=== PATIENT | female | born 1930 | race Caucasian/White ===

== ENCOUNTER 2018-06-30 09:22 | Inpatient (IN) ==
--- NOTE | 2018-06-30 09:45 | Emergency Department Note ---
ED Disposition Clinical Impression: Upper GI bleed, Elevated liver enzymes, Anemia, blood loss Hypothyroidism Qualifiers: Hypothyroidism type: unspecified Qualified Code(s): E03.9 - Hypothyroidism, unspecified Disposition: Still a Patient Condition on Discharge: Fair - Critical Care Critical Care Time: No Attestation: On 06/30/18, the high probability of a clinically significant, sudden or life threatening deterioration of the following system(s) required my full and direct attention, intervention and personal management. The time I documented below is in addition to time spent performing reported procedures but includes the following listed in this critical care notation. Medical Decision Making - Raymond Inquiry Pt receiving controlled substance: No Vital Signs: 06/30/18 09:20 06/30/18 10:04 06/30/18 10:30 Temperature 97.7 F Temperature Source Oral Pulse Rate [Right Brachial] 63 82 82 Respiratory Rate 18 18 18 Blood Pressure [Right Arm] 134/49 135/92 157/67 Blood Pressure Mean [Right Arm] 77 106 97 Blood Pressure Source [Right Arm] Automatic Cuff Automatic Cuff Automatic Cuff Blood Pressure Position [Right Arm] Sitting Supine Supine 02 Sat by Pulse Oximetry 99 98 98 Oxygen Delivery Method Nasal Cannula Room Air Nasal Cannula Oxygen Flow Rate (LPM) 2 2 06/30/18 11:00 06/30/18 11:46 06/30/18 12:00 Temperature Temperature Source Pulse Rate [Right Brachial] 68 70 54 L Respiratory Rate 18 18 18 Blood Pressure [Right Arm] 131/59 103/55 134/65 Blood Pressure Mean [Right Arm] 83 71 88 Blood Pressure Source [Right Arm] Automatic Cuff Automatic Cuff Blood Pressure Position [Right Arm] Supine Supine Supine 02 Sat by Pulse Oximetry 96 99 100 Oxygen Delivery Method Nasal Cannula Room Air Nasal Cannula Oxygen Flow Rate (LPM) 2 2 06/30/18 12:30 06/30/18 13:00 Temperature Temperature Source Pulse Rate [Right Brachial] 58 L 68 Respiratory Rate 18 20 Blood Pressure [Right Arm] 129/66 129/68 Blood Pressure Mean [Right Arm] 87 88 Blood Pressure Source [Right Arm] Automatic Cuff Automatic Cuff Blood Pressure Position [Right Arm] Supine Sitting 02 Sat by Pulse Oximetry 100 98 Oxygen Delivery Method Venturi Mask Room Air Oxygen Flow Rate (LPM) 2 - Lab Data Lab Results 06/30/18 10:02: WBC 7.2, RBC 2.83 L, Hgb 8.7 L, Hct 26.4 L, MCV 93.3, MCH 30.6, MCHC 32.8, RDW 14.7, Plt Count 261, MPV 7.7, Neut % (Auto) 82.3 H, Lymph % (Auto ) 10.7, Patrick % (Auto) 6.0, Eos % (Auto) 0.9, Baso % (Auto) 0.1, Neut # (Auto) 5.9, Lymph # (Auto) 0.8, Patrick # (Auto) 0.4, Eos # (Auto) 0.1, Baso # (Auto) 0.0 06/30/18 10:02: Sodium 127 L, Potassium 4.5, Chloride 97 L, Carbon Dioxide 27, Anion Gap 7.5, BUN 60 H, Creatinine 1.01, Estimated Creat Clear 23, Estimated GFR 52 L, Est GFR ( Amer) 63, Glucose 67 L, Calcium 7.5 L, Total Bilirubin 0.4, AST 405 H*, ALT 717 H*, Alkaline Phosphatase 62, Total Creatine Kinase 41, CK-MB (CK-2) 1.6, CK-MB (CK-2) Rel Index 3.9, Troponin I < 0.02, Total Protein 5.0 L, Albumin 2.6 L, Globulin 2.4, Albumin/Globulin Ratio 1.1 06/30/18 10:02: TSH 24.63 H 06/30/18 10:02: Lipase 231 06/30/18 10:20: Stool Occult Blood Positive A 06/30/18 10:35: Urine Color Yellow, Urine Appearance Clear, Urine pH 7.0, Ur Specific [place] <= 1.005, Urine Protein Negative, Urine Glucose (UA) Negative, Urine Ketones Negative, Urine Blood Negative, Urine Nitrate Negative, Urine Bilirubin Negative, Urine Urobilinogen 0.2, Ur Leukocyte Esterase Negative, Urine RBC None, Urine WBC None, Ur Squamous Epith Cells Occasional, Urine Bacteria Trace 06/30/18 11:20: Blood Type A Positive, Antibody Screen Negative Result diagrams: 06/30/18 10:02 06/30/18 10:02 Orders (Tests/Meds): ED MEDICATIONS Generic Name Dose Route Start Last Admin Trade Name Freq PRN Reason Stop Dose Admin Albuterol Sulfate 1 puffs 07/01/18 09:00 Proventil-Hfa 90mcg/Puff Inhaler IH 07/31/18 08:59 QIDP PRN Shortness Of Breath Bisoprolol Fumarate 5 mg 07/01/18 09:00 Zebeta 5mg Tablet PO 07/31/18 08:59 DAILY ANNIE Diltiazem HCl 240 mg 07/01/18 09:00 Cardizem Er 240mg Capsule PO 07/31/18 08:59 DAILY ANNIE Furosemide 40 mg 07/01/18 09:00 Lasix 40mg Tablet PO 07/31/18 08:59 DAILY ANNIE Hyoscyamine 0.125 mg 07/01/18 09:00 Levsin 0.125mg Tablet PO 07/31/18 08:59 DAILY ANNIE Pantoprazole Sodium 80 mg/ 100 mls @ 10 mls/hr 06/30/18 14:15 Sodium Chloride IV 07/03/18 11:55 .Q10H ANNIE Irbesartan 75 mg 07/01/18 09:00 Avapro 75mg Tablet PO 07/31/18 08:59 DAILY ANNIE Isosorbide Mononitrate 30 mg 06/30/18 21:00 Imdur 30mg Er Tablet PO 07/30/18 20:59 BID ANNIE Levothyroxine Sodium 75 mcg 07/01/18 07:00 Synthroid 75mcg (0.075mg) Tablet PO 07/31/18 06:59 DAILYDM [facility] Loratadine 10 mg 07/01/18 09:00 Claritin 10mg Tablet PO 07/31/18 08:59 DAILY ANNIE Magnesium Oxide 400 mg 06/30/18 21:00 Mag-Ox 400mg Tab PO 07/30/18 20:59 HS [facility] Morphine Sulfate 2 mg 06/30/18 14:15 06/30/18 14:29 Morphine 2mg/Ml Syringe IV 07/30/18 14:14 2 mg Q4HP PRN Administration Severe Pain Ondansetron HCl 4 mg 06/30/18 14:15 Zofran 4mg/2ml Vial IV 07/30/18 14:14 Q8HP PRN Nausea Potassium Chloride 10 meq 07/01/18 09:00 Micro-K 10meq Capsule PO 07/31/18 08:59 DAILY ANNIE Spironolactone 25 mg 07/01/18 09:00 Aldactone 25mg Tablet PO 07/31/18 08:59 DAILY ANNIE Discontinued Medications Generic Name Dose Route Start Last Admin Trade Name Freq PRN Reason Stop Dose Admin Pantoprazole Sodium 80 mg/ 100 mls @ 10 mls/hr 06/30/18 11:56 Sodium Chloride IV 07/03/18 11:55 .Q10H ANNIE Pantoprazole Sodium 80 mg/ 100 mls @ 100 mls/hr 06/30/18 10:56 06/30/18 11:20 Sodium Chloride IV 06/30/18 11:55 100 mls/hr ONCE ONE Administration Isosorbide Dinitrate 10 mg 07/01/18 09:00 Isordil 10mg Tablet PO 07/31/18 08:59 DAILY ANNIE Morphine Sulfate 2 mg 06/30/18 13:10 06/30/18 13:21 Morphine 4mg/Ml Syringe IV 06/30/18 13:11 1 mg ONCE ONE Administration Ondansetron HCl 4 mg 06/30/18 13:10 06/30/18 13:22 Zofran 4mg/2ml Vial IV 06/30/18 13:11 4 mg ONCE ONE Administration ORDERS Category Date Time Status Consult to Physician [CONS] Routine Cons 06/30/18 14:15 Ordered Complete Blood Count Auto Diff Timed Lab 06/30/18 14:30 Ordered Hepatitis Panel (4) Stat Lab 06/30/18 10:43 Received - Radiology Data #1 Image(s): Chest Image Reviewed: Yes I have reviewed radiologist's interpretation Faint area in the upper lobe on the right that could be a small area of infiltrate. The patient does not have symptoms of pneumonia, fever, or elevated WBC. Cynically does not have pneumonia. - CT Data CT Scan: Abdomen, Pelvis Time Received: 12:[address] Reviewed: Yes: I discussed the CT results w/the radiologist Findings Narrative: Biliary dilatation - ECG Data Tracing #1 EKG interpreted by Mansoor Manzanares MD: Rhythm: sinus Rate: 61 [place]: Left Ectopy: none Conduction: normal ST Segment Changes: none T Wave Changes: none Q Waves: Nicolas-septal No evidence of acute ischemia or injury Prior electrocardiagrams reviewed. No change from prior tracings. - Physician Consults Physician Consulted: Michael Time: 13:22 Reason -: Admission Comment/Response: Agrees to admit the patient to the hospital. We discussed the patient's clinical information, including history, exam, laboratory and radiology results and ED course. Per hospital procedure, I will write temporary bridge inpatient orders on the patient. Specific orders requested by the admitting physician: Recheck CBC in 1 hour Additional Consult: Pradeep Time: 13:25 Reason -: Surgical Eval/Care Medical Decision Narrative: Barium swallow: FINDINGS: The swallowing function was normal. There is moderate posterior indentation of the barium column in the lower cervical spine region at approximately the C6 level consistent with cricopharyngeal dysfunction. This could be a cause for dysphasia to solid foods. Otherwise the esophageal motility was grossly normal except for a few tertiary contractions in the lower third of the esophagus. There is tapered narrowing of the esophagus at the gastroesophageal junction appearance suggesting stenosis from scarring from chronic reflux esophagitis. I was reluctant to give the 13 mm barium tablet is I feel that it would definitely be lodged in the stenotic segment. There was intermittent gastroesophageal reflux into the mid thoracic esophagus. IMPRESSION: 1. 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 Mild esophageal dyskinesia along with 2 to 3 cm stenotic segment of the distal esophagus at the gastroesophageal junction Dictated By: Trenton Mascorro Signed By: <Electronically signed by Trenton Mascorro in [place]> 06/11/18 1241 Thoracic spine x-ray: IMPRESSION: Very limited exam. There is wedging of L3 which is developed since 11/19/2017 with chronic wedging of L1 which is unchanged. Dictated By: John Marcial MD Signed By: <Electronically signed by John Marcial MD in [place]> 06/23/18 1547 Discussed thyroid test results. Family states the patient's thyroid dose was recently cut down from 125 mcg daily to 88 mcg daily and then down to 88 mcg and 44 mcg alternating every other day. General Adult HPI - General Chief complaint: Weakness Stated complaint: weakness Time Seen by Provider: 06/30/18 10:00 Mode of Arrival: EMS Limitations: Physical Limitations Description of Symptoms (Recalled from ER Triage Doc. by RN): recently diagnosed with compression fracture in her back; presents with weakness upon standing, near syncope episodes - History of Present Illness HPI narrative: Brought in by ambulance. Complains of generalized weakness, dizziness and near syncope upon standing. Abdomen is been bothering her since she sustained compression fracture in her back for couple of weeks. She has nausea. She is having frequent bowel movements. Since Thursday bowel movements have been black and sticky and she is having more than usual. No vomiting. She is on muscle relaxers for her back. She is not on any antiplatelet except for a baby aspirin a day. She had a barium swallow done a couple of weeks ago because of trouble swallowing, at that time she was not having black bowel movements. She is on iron, but has not taken it for couple of days. Last ate a couple of bites of applesauce at 6 AM. - Related Data Home Medications Medication Instructions Recorded Confirmed Albuterol Sulfate [Albuterol HFA 108 mg PO DAILY 06/03/18 Inhaler] Hyoscyamine Sulfate 0.125 mg PO DAILY 06/03/18 Isosorbide Dinitrate [Isordil 10mg 10 mg PO DAILY 06/03/18 tablet] Levothyroxine Sodium 88 mcg PO DAILY 06/03/18 [Levothyroxine 88mcg (0.088mg) Tab] Aspirin [Aspirin 81mg chewable 81 mg PO DAILY 06/30/18 06/30/18 tab] Bifidobacterium Infantis [Align] 4 mg PO WEEKLY 06/30/18 06/30/18 Bisoprolol Fumarate [Zebeta 5mg 5 mg PO DAILY 06/30/18 06/30/18 tablet] Chlorhexidine Gluconate [Peridex] 15 ml MM DAILY 06/30/18 06/30/18 Cholecalciferol (Vitamin D3) 1,000 unit PO DAILY 06/30/18 06/30/18 [Vitamin D3 1,000 Unit Cap] Cyanocobalamin (Vitamin B-12) 1 % PO DAILY 06/30/18 06/30/18 [Vitamin B-12] Ferrous Gluconate [Ferrous 1 tab PO DAILY 06/30/18 06/30/18 Gluconate 324mg Tab] Furosemide [Lasix 40mg tab] 40 mg PO BID 06/30/18 06/30/18 Levalbuterol HCl [Levalbuterol 1.25 mg IH DAILY 06/30/18 06/30/18 Concentrate] Loratadine [Claritin 10mg Tablet] 0 mg .ROUTE DAILY 06/30/18 06/30/18 Losartan Potassium 25 mg PO DAILY 06/30/18 06/30/18 Magnesium Oxide [Mag-Ox 400mg Tab] 0 mg PO DAILY 06/30/18 06/30/18 Metoclopramide HCl [Metoclopramide 10 mg PO DAILY 06/30/18 06/30/18 10mg Tablet] Nitroglycerin 0.4 mg SL NEEDED PRN 06/30/18 06/30/18 Polyethylene Glycol 3350 [Gavilax] 17 gm PO DAILY 06/30/18 06/30/18 Potassium Chloride [Klor-Con 10 meq PO DAILY 06/30/18 06/30/18 Sprinkle 10mEq] Spironolactone 25 mg PO DAILY 06/30/18 06/30/18 Umeclidinium [place] [Incruse 62.5 mcg IH DAILYP PRN 06/30/18 06/30/18 Ellipta] dilTIAZem HCl [Diltiazem 240mg 240 mg PO DAILY 06/30/18 06/30/18 24Hr ER Cap] metroNIDAZOLE [Metronidazole] 45 gm TP DAILY 06/30/18 06/30/18 Allergies Allergy/AdvReac Type Severity Reaction Status Date / Time diatrizoate sodium Allergy Severe S-SWELLS-OR Verified 06/30/18 13:26 [From HYPAQUE] AL/THROAT Influenza Virus Vaccines Allergy Intermediate I-ITCHING Verified 06/30/18 13:26 [INFLUENZA VIRUS VACCINES] levofloxacin [From LEVAQUIN] Allergy Intermediate I-RASH Verified 06/30/18 13:26 codeine [CODEINE] Allergy Mild "HEADACHE" Verified 06/30/18 13:26 Sulfa (Sulfonamide Allergy Mild NA-NAUSEA/V Verified 06/30/18 13:26 Antibiotics) OMITING [SULFA (SULFONAMIDE ANTIBIOTICS)] mometasone furoate Allergy Unknown Verified 06/30/18 13:26 [From NASONEX] [facility] History I have reviewed the patient's past medical history: Yes - Social History Alcohol Intake: never - Psychiatric History Expresses thoughts of harming self/others: None Suicide Plan Description: No Plan ROS Obtained: Yes All systems reviewed & no additional complaints - Constitutional Constitutional: Reports fatigue, Denies fever(s), Reports weakness - Cardiovascular Cardiovascular: Denies chest pain - Respiratory Respiratory: No dyspnea - Gastrointestinal Gastrointestingal: Reports: bloating, black, tarry stools, nausea. Denies: vomiting - Musculoskeletal Musculoskeletal: Reports back pain Physical Exam - General General appearance: alert, in no apparent distress - Head Head exam: atraumatic, normocephalic, normal inspection - Eye Eye exam: Present: normal appearance, PERRL, EOMI - ENT ENT exam: Present: normal oropharynx, mucous membranes moist - Neck Neck exam: Present: normal inspection, full ROM, trachea midline. Absent: meningismus, lymphadenopathy - Chest Chest inspection: Present: normal inspection, symmetric chest wall rise. Absent : tenderness - Respiratory Respiratory exam: Present: normal lung sounds bilaterally. Absent: respiratory distress - Cardiovascular Cardiovascular exam: Present: regular rate, normal rhythm. Absent: JVD - Abdominal Exam Abdominal exam: Present: soft, normal bowel sounds. Absent: distention, tenderness, guarding - Rectal Exam Rectal exam: Present: normal inspection, normal rectal tone, black stool. Absent: mass - Extremities Exam Extremities exam: Present: normal inspection, full ROM, normal capillary refill. Absent: calf tenderness - Back Exam Back exam: Present: normal inspection. Absent: tenderness - Neurological Exam Neurological exam: Present: alert, oriented X3 - Psychiatric Psychiatric exam: Present: normal affect, normal mood - Skin Skin exam: Present: warm, dry, intact, pallor
[2018-06-30 10:11] LABS: Basophils % 0.1 % (0.1-2.0); Eosinophils # 0.1 K/mm3 (0.0-0.4); Eosinophils % 0.9 % (0.1-12.0); Hematocrit 26.4 % (37.0-47.0); Hemoglobin 8.7 g/dL (12.2-16.2); Lymphocytes # 0.8 K/mm3 (0.7-4.5); Lymphocytes % 10.7 K/mm3 (10-50); Mean Corpuscular HGB Conc 32.8 g/dL (31.8-35.4); Mean Corpuscular Hemoglobin 30.6 pg (27.0-31.2); Mean Corpuscular Volume 93.3 fl (81-99); Mean Platelet Volume 7.7 fl (7.4-10.4); Monocytes # 0.4 K/mm3 (0.1-1.0); Neutrophils # 5.9 K/mm3 (1.8-7.8); Neutrophils % 82.3 % (37.0-80.0); Platelet Count 261 K/mm3 (142-424); Red Blood Count 2.83 M/mm3 (4.20-5.40); Red Cell Distribution Width 14.7 % (11.5-17.5); White Blood Count 7.2 K/mm3 (4.8-10.8)
[2018-06-30 10:36] LABS: Alanine Aminotransferase 717 U/L (12-78); Albumin Level 2.6 gm/dL (3.4-5.0); Albumin/Globulin Ratio 1.1 (1.1-1.8); Alkaline Phosphatase 62 U/L (46-116); Anion Gap 7.5 mEq/L (5-15); Aspartate Amino Transferase 405 U/L (15-37); Bilirubin,Total 0.4 mg/dL (0.2-1.0); Blood Urea Nitrogen 60 mg/dL (7-18); Calcium 7.5 mg/dL (8.5-10.1); Carbon Dioxide 27 mmol/L (21.0-32.0); Chloride 97 mmol/L (98-107); Creatine Kinase 41 U/L (26-192); Globulin 2.4 gm/dl (1.3-3.2); Glucose 67 mg/dL (74-106); Potassium 4.5 mmoL/L (3.5-5.1); Sodium 127 mmol/L (136-145)
[2018-06-30 10:49] LABS: Microscopic, Urine URINE MICROSCOPIC (MICROSCOPIC)
[2018-06-30 11:09] LABS: Appearance,Urine CLEAR (Clear); Bilirubin,Urine Negative (Negative); Blood, Urine Negative (Negative); Color,Urine YELLOW (Yellow); Glucose,Urine (UA) Negative (Negative); Ketones,Urine Negative (Negative); Leukocyte Esterase,Urine Negative (Negative); Protein,Urine Negative (Negative); Specific Gravity, Urine <= 1.005 (1.005-1.030); Urobilinogen,Urine 0.2 EU/dl (0.2)
[2018-06-30 11:26] LABS: Squamous Epithelial Cell,Urine Occasional #/hpf (0-5)
[2018-06-30 11:27] LABS: Bacteria,Urine Trace /lpf
[2018-06-30 15:25] LABS: Basophils % 0.1 % (0.1-2.0); Eosinophils # 0.1 K/mm3 (0.0-0.4); Hematocrit 29.2 % (37.0-47.0); Lymphocytes % 10.1 K/mm3 (10-50); Mean Corpuscular HGB Conc 34.3 g/dL (31.8-35.4); Mean Corpuscular Hemoglobin 30.7 pg (27.0-31.2); Mean Corpuscular Volume 89.6 fl (81-99); Mean Platelet Volume 7.4 fl (7.4-10.4); Monocytes # 0.5 K/mm3 (0.1-1.0); Monocytes % 5.4 % (1.7-9.3); Neutrophils # 8.2 K/mm3 (1.8-7.8); Neutrophils % 83.5 % (37.0-80.0); Platelet Count 286 K/mm3 (142-424); Red Blood Count 3.26 M/mm3 (4.20-5.40); Red Cell Distribution Width 14.6 % (11.5-17.5); White Blood Count 9.8 K/mm3 (4.8-10.8)
[2018-06-30 15:29] LABS: Hemoglobin 10.1 g/dL (12.2-16.2)
--- NOTE | 2018-06-30 15:58 | Consult Report ---
*Admission Date: 06/30/18 *Chief complaint: weakness *History of present illness: This is an 88-year-old female seen in consultation from the service of Dr. Rodriguez for evaluation regarding possible upper gastrointestinal hemorrhage. Below is a forwarded copy of her HPI from her emergency department history and physical: Brought in by ambulance. Complains of generalized weakness, dizziness and near syncope upon standing. Abdomen is been bothering her since she sustained compression fracture in her back for couple of weeks. She has nausea. She is having frequent bowel movements. Since Thursday bowel movements have been black and sticky and she is having more than usual. No vomiting. She is on muscle relaxers for her back. She is not on any antiplatelet except for a baby aspirin a day. She had a barium swallow done a couple of weeks ago because of trouble swallowing, at that time she was not having black bowel movements. She is on iron, but has not taken it for couple of days. Last ate a couple of bites of applesauce at 6 AM. Review of Systems - Constitutional Denies night sweats - Eyes Denies change in vision - ENT Denies change in voice - *Cardiovascular Denies chest pain - *Respiratory Denies cough - *Gastrointestinal Reports abdominal pain, Reports black, tarry stools - *Genitourinary Denies abnormal vaginal bleeding - *Neurologic Reports weakness - Hematologic/Lymphatic Denies easy bleeding [facility] History Medical History: Reports:: Atrial Fibrillation, Hypertension Denies:: Diabetes Mellitus Type 1, Diabetes Mellitus Type 2 Other Medical History: Reports: Arthritis, Hypothyroidism, Thyroid Disease - *Social History Alcohol Intake: never Occupational Status: retired - Psychiatric History Expresses thoughts of harming self/others: None Suicide Plan Description: No Plan Meds Home Medications Medication Instructions Recorded Confirmed Type Albuterol Sulfate [Albuterol HFA 2 puffs PO QIDP PRN 06/03/18 History Inhaler] Hyoscyamine Sulfate 0.125 mg PO DAILY 06/03/18 History Isosorbide Dinitrate [Isordil 10mg 10 mg PO DAILY 06/03/18 History tablet] Aspirin [Aspirin 81mg chewable 81 mg PO DAILY 06/30/18 06/30/18 History tab] Bifidobacterium Infantis [Align] 4 mg PO WEEKLY 06/30/18 06/30/18 History Bisoprolol Fumarate [Zebeta 5mg 5 mg PO DAILY 06/30/18 06/30/18 History tablet] Chlorhexidine Gluconate [Peridex] 15 ml MM DAILY 06/30/18 06/30/18 History Cholecalciferol (Vitamin D3) 1,000 unit PO DAILY 06/30/18 06/30/18 History [Vitamin D3 1,000 Unit Cap] Cyanocobalamin (Vitamin B-12) 1 % PO DAILY 06/30/18 06/30/18 History [Vitamin B-12] Ferrous Gluconate [Ferrous 324 mg PO DAILY 06/30/18 06/30/18 History Gluconate 324mg Tab] Furosemide [Furosemide 40MG tAB] 80 mg PO HS 06/30/18 06/30/18 History Furosemide [Lasix 40mg tab] 40 mg PO DAILY 06/30/18 06/30/18 History Isosorbide Mononitrate [Imdur 30mg 30 mg PO DAILY 06/30/18 06/30/18 History ER tablet] Levalbuterol HCl [Levalbuterol 1.25 mg IH TID 06/30/18 06/30/18 History Concentrate] Levothyroxine Sodium 75 mcg PO DAILY 06/30/18 06/30/18 History [Levothyroxine 75mcg (0.075mg) Tab] Loratadine [Claritin 10mg Tablet] 10 mg PO DAILY 06/30/18 06/30/18 History Losartan Potassium 25 mg PO DAILY 06/30/18 06/30/18 History Magnesium Oxide [Mag-Ox 400mg Tab] 400 mg PO HS 06/30/18 06/30/18 History Metoclopramide HCl [Metoclopramide 10 mg PO AC 06/30/18 06/30/18 History 10mg Tablet] Nitroglycerin 0.4 mg SL NEEDED PRN 06/30/18 06/30/18 History Polyethylene Glycol 3350 [Gavilax] 17 gm PO DAILY 06/30/18 06/30/18 History Potassium Chloride [Klor-Con 20 meq PO DAILY 06/30/18 06/30/18 History Sprinkle 10mEq] Spironolactone 25 mg PO DAILY 06/30/18 06/30/18 History Umeclidinium [place] [Incruse 1 puff IH DAILYP PRN 06/30/18 06/30/18 History Ellipta] dilTIAZem HCl [Diltiazem 240mg 240 mg PO DAILY 06/30/18 06/30/18 History 24Hr ER Cap] metroNIDAZOLE [Metronidazole] 45 gm TP DAILY 06/30/18 06/30/18 History Allergies Allergy/AdvReac Type Severity Reaction Status Date / Time diatrizoate sodium Allergy Severe S-SWELLS-OR Verified 06/30/18 13:26 [From HYPAQUE] AL/THROAT Influenza Virus Vaccines Allergy Intermediate I-ITCHING Verified 06/30/18 13:26 [INFLUENZA VIRUS VACCINES] levofloxacin [From LEVAQUIN] Allergy Intermediate I-RASH Verified 06/30/18 13:26 codeine [CODEINE] Allergy Mild "HEADACHE" Verified 06/30/18 13:26 Sulfa (Sulfonamide Allergy Mild NA-NAUSEA/V Verified 06/30/18 13:26 Antibiotics) OMITING [SULFA (SULFONAMIDE ANTIBIOTICS)] mometasone furoate Allergy Unknown Verified 06/30/18 13:26 [From NASONEX] Exam Vital signs and Labs for Last 24 Hours: Temp Pulse Resp BP Pulse Ox 97.5 F L 73 20 138/92 96 06/30/18 14:14 06/30/18 14:14 06/30/18 14:14 06/30/18 14:14 06/30/18 14:14 Laboratory Results - last 24 hr 06/30/18 10:02: WBC 7.2, RBC 2.83 L, Hgb 8.7 L, Hct 26.4 L, MCV 93.3, MCH 30.6, MCHC 32.8, RDW 14.7, Plt Count 261, MPV 7.7, Neut % (Auto) 82.3 H, Lymph % (Auto ) 10.7, [place] % (Auto) 6.0, Eos % (Auto) 0.9, Baso % (Auto) 0.1, Neut # (Auto) 5.9, Lymph # (Auto) 0.8, [place] # (Auto) 0.4, Eos # (Auto) 0.1, Baso # (Auto) 0.0 06/30/18 10:02: Sodium 127 L, Potassium 4.5, Chloride 97 L, Carbon Dioxide 27, Anion Gap 7.5, BUN 60 H, Creatinine 1.01, Estimated Creat Clear 23, Estimated GFR 52 L, Est GFR ( Amer) 63, Glucose 67 L, Calcium 7.5 L, Total Bilirubin 0.4, AST 405 H*, ALT 717 H*, Alkaline Phosphatase 62, Total Creatine Kinase 41, CK-MB (CK-2) 1.6, CK-MB (CK-2) Rel Index 3.9, Troponin I < 0.02, Total Protein 5.0 L, Albumin 2.6 L, Globulin 2.4, Albumin/Globulin Ratio 1.1 06/30/18 10:02: TSH 24.63 H 06/30/18 10:02: Lipase 231 06/30/18 10:20: Stool Occult Blood Positive A 06/30/18 10:35: Urine Color Yellow, Urine Appearance Clear, Urine pH 7.0, Ur Specific [place] <= 1.005, Urine Protein Negative, Urine Glucose (UA) Negative, Urine Ketones Negative, Urine Blood Negative, Urine Nitrate Negative, Urine Bilirubin Negative, Urine Urobilinogen 0.2, Ur Leukocyte Esterase Negative, Urine RBC None, Urine WBC None, Ur Squamous Epith Cells Occasional, Urine Bacteria Trace 06/30/18 11:20: Blood Type A Positive, Antibody Screen Negative 06/30/18 15:10: WBC 9.8 D, RBC 3.26 L, Hgb 10.1 L D, Hct 29.2 L, MCV 89.6, MCH 30.7, MCHC 34.3, RDW 14.6, Plt Count 286, MPV 7.4, Neut % (Auto) 83.5 H, Lymph % (Auto) 10.1, [place] % (Auto) 5.4, Eos % (Auto) 1.0, Baso % (Auto) 0.1, Neut # ( Auto) 8.2 H, Lymph # (Auto) 1.0, [place] # (Auto) 0.5, Eos # (Auto) 0.1, Baso # ( Auto) 0.0 I & O for Last 24 hours: Intake & Output 06/28/18 06/29/18 06/30/18 07/01/18 11:59 11:59 11:59 11:59 Weight 82 lb 77 lb Radiology Reports for the Last 24 Hours: Review of the patient's recent CT scan and her recent ultrasound reveal the following: Periportal edema Mild mesenteric edema Left upper lobe mass (chronic per patient report) No definitive biliary dilatation Left femoral and left inguinal hernia with adjacent small bowel loops No small bowel dilatation or other changes consistent with obstruction No free air or free fluid Some asymmetric thickening of gallbladder wall [possibly secondary to perihepatic inflammatory response (less likely acute cholecystitis)] - Constitutional no acute distress - *Routine Respiratory Exam Absent: respiratory distress - *Routine Cardiovascular Exam Present: RRR - *Routine Abdominal Exam Present: soft Comments: Mild distention and mild focal tenderness, but no severe tenderness, no rebound , and no guarding. Results - Labs 06/30/18 15:10 06/30/18 10:02 Laboratory Results - last 24 hr 06/30/18 10:02: WBC 7.2, RBC 2.83 L, Hgb 8.7 L, Hct 26.4 L, MCV 93.3, MCH 30.6, MCHC 32.8, RDW 14.7, Plt Count 261, MPV 7.7, Neut % (Auto) 82.3 H, Lymph % (Auto ) 10.7, [place] % (Auto) 6.0, Eos % (Auto) 0.9, Baso % (Auto) 0.1, Neut # (Auto) 5.9, Lymph # (Auto) 0.8, [place] # (Auto) 0.4, Eos # (Auto) 0.1, Baso # (Auto) 0.0 06/30/18 10:02: Sodium 127 L, Potassium 4.5, Chloride 97 L, Carbon Dioxide 27, Anion Gap 7.5, BUN 60 H, Creatinine 1.01, Estimated Creat Clear 23, Estimated GFR 52 L, Est GFR ( Amer) 63, Glucose 67 L, Calcium 7.5 L, Total Bilirubin 0.4, AST 405 H*, ALT 717 H*, Alkaline Phosphatase 62, Total Creatine Kinase 41, CK-MB (CK-2) 1.6, CK-MB (CK-2) Rel Index 3.9, Troponin I < 0.02, Total Protein 5.0 L, Albumin 2.6 L, Globulin 2.4, Albumin/Globulin Ratio 1.1 06/30/18 10:02: TSH 24.63 H 06/30/18 10:02: Lipase 231 06/30/18 10:20: Stool Occult Blood Positive A 06/30/18 10:35: Urine Color Yellow, Urine Appearance Clear, Urine pH 7.0, Ur Specific [place] <= 1.005, Urine Protein Negative, Urine Glucose (UA) Negative, Urine Ketones Negative, Urine Blood Negative, Urine Nitrate Negative, Urine Bilirubin Negative, Urine Urobilinogen 0.2, Ur Leukocyte Esterase Negative, Urine RBC None, Urine WBC None, Ur Squamous Epith Cells Occasional, Urine Bacteria Trace 06/30/18 11:20: Blood Type A Positive, Antibody Screen Negative 06/30/18 15:10: WBC 9.8 D, RBC 3.26 L, Hgb 10.1 L D, Hct 29.2 L, MCV 89.6, MCH 30.7, MCHC 34.3, RDW 14.6, Plt Count 286, MPV 7.4, Neut % (Auto) 83.5 H, Lymph % (Auto) 10.1, [place] % (Auto) 5.4, Eos % (Auto) 1.0, Baso % (Auto) 0.1, Neut # ( Auto) 8.2 H, Lymph # (Auto) 1.0, [place] # (Auto) 0.5, Eos # (Auto) 0.1, Baso # ( Auto) 0.0 - Imaging CT scan - abdomen: report reviewed, image reviewed CT scan - pelvis: report reviewed, image reviewed Assessment and Plan (1) Liver mass, left lobe Current visit: Yes Status: Acute Category: Medical Code(s): R16.0 - Hepatomegaly, not elsewhere classified The left lobe liver mass is chronic per patient and has shown some slight decrease in size when compared to most recent CT scan. (2) Left femoral hernia without obstruction or gangrene Current visit: Yes Status: Acute Category: Surgical Code(s): K41.90 - Unilateral femoral hernia, without obstruction or gangrene, not specified as recurrent I have had discussion with the patient concerning the risks and benefits of femoral hernia repair. Consideration of repair if and when the patient is medically stable is warranted secondary to the moderately high risk of incarceration; however, this certainly is not her acute or presenting problem and does not require emergent/urgent intervention. (3) Anemia, blood loss Current visit: Yes Status: Acute Category: Medical Code(s): D50.0 - Iron deficiency anemia secondary to blood loss (chronic) (4) Elevated liver enzymes Current visit: Yes Status: Acute Category: Medical Code(s): R74.8 - Abnormal levels of other serum enzymes ? hepatitis panel ? GI consultation (5) Hypothyroidism Current visit: Yes Status: Acute Qualifiers: Hypothyroidism type: unspecified Qualified Code(s): E03.9 - Hypothyroidism , unspecified Category: Medical Code(s): E03.9 - Hypothyroidism, unspecified (6) Upper GI bleed Current visit: Yes Status: Acute Category: Medical Code(s): K92.2 - Gastrointestinal hemorrhage, unspecified I have had a conversation with the patient concerning the risks benefits of endoscopy and the risks of sedation for endoscopy. Endoscopy is warranted for possible diagnostic and therapeutic considerations; however, the risk of sedation given the patient's comorbid conditions (particularly in light of abnormal liver function studies, periportal edema, and mesenteric edema) is likely significant. Initially, I would treat the patient as if she had severe gastritis and/or ulceration with proton pump inhibition and Carafate. ? Breath test for H. pylori UGI/SBFT (initially in lieu of endoscopy to avoid sedation) Possible EGD if needed urgently or if needed for improved diagnostic considerations if and when the patient is medically stable. OK with clear liquids for now.
--- NOTE | 2018-06-30 16:36 | History & Physical Report ---
*Admission Date: 06/30/18 *Chief complaint: dark stool *History of present illness: Ms. Castillo is an 88yo female with a hx of COPD and a compression fracture. She states she has had generalized weakness and dizziness along with near syncope upon standing. She has been constipated up until the past few days when she began having numerous BM's. This am, she had a very dark and sticky BM accompanied by epigastric pain. She was susan to the ER for evaluation and her stool was positive for blood. She is not on any antiplatelet except for a baby aspirin a day. She had a barium swallow done a couple of weeks ago because of trouble swallowing, at that time she was not having black bowel movements. She is on iron, but has not taken it for couple of days. She was admitted and surgery was consulted. [facility] History Medical History: Reports:: Atrial Fibrillation, Chronic Obstructive Pulmonary Disease (COPD), Hypertension Denies:: Diabetes Mellitus Type 1, Diabetes Mellitus Type 2 Other Medical History: Reports: Arthritis, Hypothyroidism, Thyroid Disease Comment: Right ovarian cyst, Post Hemorrhage, Breast bx - *Social History Alcohol Intake: never Occupational Status: retired - Psychiatric History Expresses thoughts of harming self/others: None Suicide Plan Description: No Plan *Family Hx:: Coronary Artery Disease, Diabetes Review of Systems - Constitutional Reports anorexia, Denies fever(s) - Eyes Denies blurry vision, Denies double vision - ENT Denies nasal congestion, Denies sore throat - *Cardiovascular Reports chest pain, Reports shortness of breath - *Respiratory Reports shortness of breath, Denies cough - *Gastrointestinal Reports abdominal pain (epigastric), Reports loose stools, Reports black, tarry stools, Reports nausea, Denies vomiting - *Genitourinary Denies difficulty urinating, Denies painful urination - *Musculoskeletal Reports joint pain, Reports back pain, Reports muscle weakness (right arm) - *Neurologic Reports unsteadiness, Reports dizziness, Reports tingling/numbness/burning sensations (mouth and tongue), Reports dizziness, Reports weakness Meds Home Medications Medication Instructions Recorded Confirmed Type Albuterol Sulfate [Albuterol HFA 2 puffs PO QIDP PRN 06/03/18 History Inhaler] Hyoscyamine Sulfate 0.125 mg PO QID 06/03/18 History Aspirin [Aspirin 81mg chewable 81 mg PO DAILY 06/30/18 06/30/18 History tab] Bifidobacterium Infantis [Align] 4 mg PO WEEKLY 06/30/18 06/30/18 History Bisoprolol Fumarate [Zebeta 5mg 5 mg PO DAILY 06/30/18 06/30/18 History tablet] Chlorhexidine Gluconate [Peridex] 5 ml MISCELLANE NEEDED PRN 06/30/18 History Cholecalciferol (Vitamin D3) 1,000 unit PO DAILY 06/30/18 06/30/18 History [Vitamin D3 1,000 Unit Cap] Ferrous Gluconate [Ferrous 324 mg PO DAILY 06/30/18 06/30/18 History Gluconate 324mg Tab] Furosemide [Furosemide 40MG tAB] 80 mg PO HS 06/30/18 06/30/18 History Furosemide [Lasix 40mg tab] 40 mg PO DAILY 06/30/18 06/30/18 History Hydrocortisone 10 mg PO DAILY 06/30/18 06/30/18 History Isosorbide Mononitrate [Imdur 30mg 60 mg PO DAILY 06/30/18 06/30/18 History ER tablet] Levalbuterol HCl [Levalbuterol 1.25 mg IH TID 06/30/18 06/30/18 History Concentrate] Levothyroxine Sodium 37.5 mcg PO Q48H 06/30/18 06/30/18 History [Levothyroxine 75mcg (0.075mg) Tab] Levothyroxine Sodium 75 mcg PO Q48H 06/30/18 06/30/18 History [Levothyroxine 75mcg (0.075mg) Tab] Loratadine [Claritin 10mg Tablet] 10 mg PO DAILY 06/30/18 06/30/18 History Losartan Potassium 25 mg PO DAILY 06/30/18 06/30/18 History Magnesium Oxide [Mag-Ox 400mg Tab] 400 mg PO HS 06/30/18 06/30/18 History Metoclopramide HCl [Metoclopramide 10 mg PO AC 06/30/18 06/30/18 History 10mg Tablet] Nitroglycerin 0.4 mg SL NEEDED PRN 06/30/18 06/30/18 History Polyethylene Glycol 3350 [Gavilax] 17 gm PO DAILY 06/30/18 06/30/18 History Potassium Chloride [Klor-Con 20 meq PO DAILY 06/30/18 06/30/18 History Sprinkle 10mEq] Spironolactone 25 mg PO DAILY 06/30/18 06/30/18 History Umeclidinium [place] [Incruse 1 puff IH DAILY 06/30/18 06/30/18 History Ellipta] dilTIAZem HCl [Diltiazem 240mg 240 mg PO DAILY 06/30/18 06/30/18 History 24Hr ER Cap] metroNIDAZOLE [Metronidazole] 45 gm TP DAILY 06/30/18 06/30/18 History Allergies Allergy/AdvReac Type Severity Reaction Status Date / Time diatrizoate sodium Allergy Severe S-SWELLS-OR Verified 06/30/18 13:26 [From HYPAQUE] AL/THROAT Influenza Virus Vaccines Allergy Intermediate I-ITCHING Verified 06/30/18 13:26 [INFLUENZA VIRUS VACCINES] levofloxacin [From LEVAQUIN] Allergy Intermediate I-RASH Verified 06/30/18 13:26 codeine [CODEINE] Allergy Mild "HEADACHE" Verified 06/30/18 13:26 Sulfa (Sulfonamide Allergy Mild NA-NAUSEA/V Verified 06/30/18 13:26 Antibiotics) OMITING [SULFA (SULFONAMIDE ANTIBIOTICS)] mometasone furoate Allergy Unknown Verified 06/30/18 13:26 [From NASONEX] Exam Vital signs and Labs for Last 24 Hours: Temp Pulse Resp BP Pulse Ox 97.5 F L 73 20 138/92 96 06/30/18 14:14 06/30/18 14:14 06/30/18 14:14 06/30/18 14:14 06/30/18 14:14 Laboratory Results - last 24 hr 06/30/18 10:02: WBC 7.2, RBC 2.83 L, Hgb 8.7 L, Hct 26.4 L, MCV 93.3, MCH 30.6, MCHC 32.8, RDW 14.7, Plt Count 261, MPV 7.7, Neut % (Auto) 82.3 H, Lymph % (Auto ) 10.7, [place] % (Auto) 6.0, Eos % (Auto) 0.9, Baso % (Auto) 0.1, Neut # (Auto) 5.9, Lymph # (Auto) 0.8, [place] # (Auto) 0.4, Eos # (Auto) 0.1, Baso # (Auto) 0.0 06/30/18 10:02: Sodium 127 L, Potassium 4.5, Chloride 97 L, Carbon Dioxide 27, Anion Gap 7.5, BUN 60 H, Creatinine 1.01, Estimated Creat Clear 23, Estimated GFR 52 L, Est GFR ( Amer) 63, Glucose 67 L, Calcium 7.5 L, Total Bilirubin 0.4, AST 405 H*, ALT 717 H*, Alkaline Phosphatase 62, Total Creatine Kinase 41, CK-MB (CK-2) 1.6, CK-MB (CK-2) Rel Index 3.9, Troponin I < 0.02, Total Protein 5.0 L, Albumin 2.6 L, Globulin 2.4, Albumin/Globulin Ratio 1.1 06/30/18 10:02: TSH 24.63 H 06/30/18 10:02: Lipase 231 06/30/18 10:20: Stool Occult Blood Positive A 06/30/18 10:35: Urine Color Yellow, Urine Appearance Clear, Urine pH 7.0, Ur Specific [place] <= 1.005, Urine Protein Negative, Urine Glucose (UA) Negative, Urine Ketones Negative, Urine Blood Negative, Urine Nitrate Negative, Urine Bilirubin Negative, Urine Urobilinogen 0.2, Ur Leukocyte Esterase Negative, Urine RBC None, Urine WBC None, Ur Squamous Epith Cells Occasional, Urine Bacteria Trace 06/30/18 11:20: Blood Type A Positive, Antibody Screen Negative 06/30/18 15:10: WBC 9.8 D, RBC 3.26 L, Hgb 10.1 L D, Hct 29.2 L, MCV 89.6, MCH 30.7, MCHC 34.3, RDW 14.6, Plt Count 286, MPV 7.4, Neut % (Auto) 83.5 H, Lymph % (Auto) 10.1, [place] % (Auto) 5.4, Eos % (Auto) 1.0, Baso % (Auto) 0.1, Neut # ( Auto) 8.2 H, Lymph # (Auto) 1.0, [place] # (Auto) 0.5, Eos # (Auto) 0.1, Baso # ( Auto) 0.0 I & O for Last 24 hours: Intake & Output 06/28/18 06/29/18 06/30/18 07/01/18 11:59 11:59 11:59 11:59 Output Total 1000 / 1000 Balance -1000 / -1000 Weight 82 lb 77 lb - Constitutional no acute distress - *Routine HEENT Exam Head: Present: normocephalic, atraumatic Eye: Present: EOMI, PERRL ENT: Present: mucous membranes dry - *Routine Neck Exam Present: supple, full ROM - *Routine Respiratory Exam Present: wheezes. Absent: crackles - *Routine Cardiovascular Exam Present: RRR - *Routine Abdominal Exam Present: soft, normoactive bowel sounds, tenderness (epigastric area) - *Routine Extremities Exam Absent: edema - *Routine Skin Exam Present: intact - *Routine Neurological Exam Present: alert, oriented X3 H&P: Result - Labs Labs: - Impressions CXR - Chronic changes with possible patchy infiltrate in the right upper lobe Abd CT 1. Suspected biliary dilatation. Consider ultrasound for further evaluation 2. Slight increase wedge compression changes of L3 and L1 RUQ U/S 1. Thickened gallbladder wall small amount of pericholecystic fluid. No gallstones evident. 2. No evidence of intra or extrahepatic biliary ductal dilatation. Abnormality noted on the CT scan is likely due to periportal edema. Assessment and Plan (1) Upper GI bleed Current visit: Yes Status: Acute Category: Medical Code(s): K92.2 - Gastrointestinal hemorrhage, unspecified (2) Elevated liver enzymes Current visit: Yes Status: Acute Category: Medical Code(s): R74.8 - Abnormal levels of other serum enzymes (3) Liver mass, 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 Category: Medical Code(s): R16.0 - Hepatomegaly, not elsewhere classified (4) Left femoral hernia without obstruction or gangrene Current visit: Yes Status: Chronic Category: Surgical Code(s): K41.90 - Unilateral femoral hernia, without obstruction or gangrene, not specified as recurrent (5) Anemia, 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 Category: Medical Code(s): D50.0 - Iron deficiency anemia secondary to blood loss (chronic) (6) Hypothyroidism Current visit: Yes Status: Chronic Qualifiers: Hypothyroidism type: unspecified Qualified Code(s): E03.9 - Hypothyroidism , unspecified Category: Medical Code(s): E03.9 - Hypothyroidism, unspecified - Assessment and plan all Dx Assessment and Plan for all problems:: Will get a hepatitis panel, INR, and PTT as well as monitor H&H. Pt has been started on a PPI and carafate and is scheduled for an upper GI tomorrow. Dr. Fernández has seen the patient.
[2018-06-30 17:55] LABS: Prothrombin Time 10.3 seconds (9.4-11.8)
[2018-07-01 05:26] LABS: Basophils % 0.1 % (0.1-2.0); Eosinophils # 0.1 K/mm3 (0.0-0.4); Eosinophils % 1.5 % (0.1-12.0); Hematocrit 26.4 % (37.0-47.0); Lymphocytes # 0.8 K/mm3 (0.7-4.5); Lymphocytes % 11.1 K/mm3 (10-50); Mean Corpuscular HGB Conc 32.8 g/dL (31.8-35.4); Mean Corpuscular Hemoglobin 30.7 pg (27.0-31.2); Mean Corpuscular Volume 93.7 fl (81-99); Mean Platelet Volume 7.2 fl (7.4-10.4); Monocytes # 0.4 K/mm3 (0.1-1.0); Monocytes % 6.2 % (1.7-9.3); Neutrophils # 5.6 K/mm3 (1.8-7.8); Neutrophils % 81.1 % (37.0-80.0); Platelet Count 277 K/mm3 (142-424); Red Blood Count 2.82 M/mm3 (4.20-5.40); Red Cell Distribution Width 14.7 % (11.5-17.5); White Blood Count 6.9 K/mm3 (4.8-10.8)
[2018-07-01 05:34] LABS: Albumin Level 2.6 gm/dL (3.4-5.0); Anion Gap 3.3 mEq/L (5-15); Bilirubin,Total 0.4 mg/dL (0.2-1.0); Globulin 2.6 gm/dl (1.3-3.2); Potassium 4.3 mmoL/L (3.5-5.1); Total Protein,Serum 5.2 gm/dL (6.4-8.2)
[2018-07-01 05:37] LABS: Hemoglobin 8.7 g/dL (12.2-16.2)
[2018-07-01 05:59] LABS: Calcium 8.3 mg/dL (8.5-10.1)
--- NOTE | 2018-07-01 06:47 | Progress Note ---
Subjective Patient reports: feels better Exam Vital signs and Labs for Last 24 Hours: Temp Pulse Resp BP Pulse Ox 97.4 F L 73 18 134/76 100 07/01/18 03:51 07/01/18 03:51 07/01/18 03:51 07/01/18 03:51 07/01/18 03:51 Laboratory Results - last 24 hr 06/30/18 10:02: WBC 7.2, RBC 2.83 L, Hgb 8.7 L, Hct 26.4 L, MCV 93.3, MCH 30.6, MCHC 32.8, RDW 14.7, Plt Count 261, MPV 7.7, Neut % (Auto) 82.3 H, Lymph % (Auto ) 10.7, [place] % (Auto) 6.0, Eos % (Auto) 0.9, Baso % (Auto) 0.1, Neut # (Auto) 5.9, Lymph # (Auto) 0.8, [place] # (Auto) 0.4, Eos # (Auto) 0.1, Baso # (Auto) 0.0 06/30/18 10:02: Sodium 127 L, Potassium 4.5, Chloride 97 L, Carbon Dioxide 27, Anion Gap 7.5, BUN 60 H, Creatinine 1.01, Estimated Creat Clear 23, Estimated GFR 52 L, Est GFR ( Amer) 63, Glucose 67 L, Calcium 7.5 L, Total Bilirubin 0.4, AST 405 H*, ALT 717 H*, Alkaline Phosphatase 62, Total Creatine Kinase 41, CK-MB (CK-2) 1.6, CK-MB (CK-2) Rel Index 3.9, Troponin I < 0.02, Total Protein 5.0 L, Albumin 2.6 L, Globulin 2.4, Albumin/Globulin Ratio 1.1 06/30/18 10:02: TSH 24.63 H 06/30/18 10:02: Lipase 231 06/30/18 10:20: Stool Occult Blood Positive A 06/30/18 10:35: Urine Color Yellow, Urine Appearance Clear, Urine pH 7.0, Ur Specific [place] <= 1.005, Urine Protein Negative, Urine Glucose (UA) Negative, Urine Ketones Negative, Urine Blood Negative, Urine Nitrate Negative, Urine Bilirubin Negative, Urine Urobilinogen 0.2, Ur Leukocyte Esterase Negative, Urine RBC None, Urine WBC None, Ur Squamous Epith Cells Occasional, Urine Bacteria Trace 06/30/18 11:20: Blood Type A Positive, Antibody Screen Negative 06/30/18 15:10: WBC 9.8 D, RBC 3.26 L, Hgb 10.1 L D, Hct 29.2 L, MCV 89.6, MCH 30.7, MCHC 34.3, RDW 14.6, Plt Count 286, MPV 7.4, Neut % (Auto) 83.5 H, Lymph % (Auto) 10.1, [place] % (Auto) 5.4, Eos % (Auto) 1.0, Baso % (Auto) 0.1, Neut # ( Auto) 8.2 H, Lymph # (Auto) 1.0, [place] # (Auto) 0.5, Eos # (Auto) 0.1, Baso # ( Auto) 0.0 06/30/18 17:25: PT 10.3, INR 1.00 06/30/18 17:25: APTT 26.4 07/01/18 04:20: WBC 6.9 D, RBC 2.82 L, Hgb 8.7 L D, Hct 26.4 L, MCV 93.7, MCH 30.7, MCHC 32.8, RDW 14.7, Plt Count 277, MPV 7.2 L, Neut % (Auto) 81.1 H, Lymph % (Auto) 11.1, [place] % (Auto) 6.2, Eos % (Auto) 1.5, Baso % (Auto) 0.1, Neut # (Auto) 5.6, Lymph # (Auto) 0.8, [place] # (Auto) 0.4, Eos # (Auto) 0.1, Baso # (Auto) 0.0 07/01/18 04:20: Sodium 132 L, Potassium 4.3, Chloride 101, Carbon Dioxide 32, Anion Gap 3.3 L, BUN 32 H D, Creatinine 0.84, Estimated Creat Clear 22, Estimated GFR 64, Est GFR ( Amer) 78 D, Glucose 82 D, Calcium 8.3 L D, Total Bilirubin 0.4, AST 229 H D, ALT 555 H*, Alkaline Phosphatase 72, Total Protein 5.2 L, Albumin 2.6 L, Globulin 2.6, Albumin/Globulin Ratio 1.0 L I & O for Last 24 hours: Intake & Output 06/28/18 06/29/18 06/30/18 07/01/18 11:59 11:59 11:59 11:59 Intake Total 153 / 153 Output Total 1800 / 1800 Balance -1647 / -1647 Weight 82 lb 77 lb - Constitutional no acute distress - *Routine Respiratory Exam Absent: respiratory distress - *Routine Abdominal Exam Present: soft Progress Note: A&P (1) Upper GI bleed Status: Acute Assessment and plan: HH stable this AM when compared to initial UGI/SBFT today Current Visit: Yes (2) Elevated liver enzymes Status: Acute Assessment and plan: improved this AM Current Visit: Yes (3) Liver mass, left lobe Status: Chronic Current Visit: Yes (4) 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
--- NOTE | 2018-07-01 07:35 | Pharmacy Consult Notes ---
[facility] Pharmacy VTE Monitoring - Patient Demographics Admission date: 06/30/18 Report Date: 07/01/18 Time: 07:34 Allergies/Adverse Reactions: Patient Allergies diatrizoate sodium [From HYPAQUE] Allergy (Severe, Verified 06/30/18 13:26) I-XLCRCC-DKWM/THROAT Influenza Virus Vaccines [INFLUENZA VIRUS VACCINES] Allergy (Intermediate, Verified 06/30/18 13:26) I-ITCHING levofloxacin [From LEVAQUIN] Allergy (Intermediate, Verified 06/30/18 13:26) I-RASH codeine [CODEINE] Allergy (Mild, Verified 06/30/18 13:26) "HEADACHE" Sulfa (Sulfonamide Antibiotics) [SULFA (SULFONAMIDE ANTIBIOTICS)] Allergy (Mild , Verified 06/30/18 13:26) NA-NAUSEA/VOMITING mometasone furoate [From NASONEX] Allergy (Unknown, Verified 06/30/18 13:26) Height: 1.52 m Weight: 34.927 kg Patient Problems: Current Active Problems Upper GI bleed (Acute) Elevated liver enzymes (Acute) Anemia, blood loss (Chronic) Hypothyroidism (Chronic) Liver mass, left lobe (Chronic) Left femoral hernia without obstruction or gangrene (Chronic) Esophageal stricture (Acute) - VTE Risk Labs: VTE Related Lab Results Hgb 8.7 g/dL (12.2-16.2) L D 07/01/18 04:20 Hct 26.4 % (37.0-47.0) L 07/01/18 04:20 Plt Count 277 K/mm3 (142-424) 07/01/18 04:20 PT 10.3 seconds (9.4-11.8) 06/30/18 17:25 INR 1.00 (0.9-1.1) 06/30/18 17:25 APTT 26.4 seconds (23.6-34.0) 06/30/18 17:25 BUN 32 mg/dL (7-18) H D 07/01/18 04:20 Creatinine 0.84 mg/dL (0.55-1.02) 07/01/18 04:20 Estimated Creat Clear 22 mL/min (0-300) 07/01/18 04:20 VTE Risk Level: Low Risk - Prophylaxis VTE Prophylaxis Ordered?: Yes Types of VTE Prophylaxis: TEDS Knee High Location of Applied Device: Bilateral Lower Extremeties - VTE Diagnosis Confirmed Treatment or plan recommended: Continue Current Treatment
--- NOTE | 2018-07-01 08:24 | Progress Note ---
Internal Medicine - PN: Subj *Date: 07/01/18 *Time: 08:20 Interval history: Patient is feeling slightly better today. She states her abdominal pain has improved but is still slightly sore in the epigastric area. She has had no further bowel movements. She is still having significant back pain and imaging shows increased wedge compression in her lumbar spine. She states the morphine makes her feel like she is going to pass out. Will discuss with Dr. Rodriguez changing her to an oral pain medication or patch rather than IV morphine. Dr. Fernández plans an upper GI with small bowel follow-through today. Exam Vital signs and Labs for Last 24 Hours: Temp Pulse Resp BP Pulse Ox 98.0 F 69 20 148/62 98 07/01/18 07:22 07/01/18 07:22 07/01/18 07:22 07/01/18 07:22 07/01/18 07:22 Laboratory Results - last 24 hr 06/30/18 10:02: WBC 7.2, RBC 2.83 L, Hgb 8.7 L, Hct 26.4 L, MCV 93.3, MCH 30.6, MCHC 32.8, RDW 14.7, Plt Count 261, MPV 7.7, Neut % (Auto) 82.3 H, Lymph % (Auto ) 10.7, [place] % (Auto) 6.0, Eos % (Auto) 0.9, Baso % (Auto) 0.1, Neut # (Auto) 5.9, Lymph # (Auto) 0.8, [place] # (Auto) 0.4, Eos # (Auto) 0.1, Baso # (Auto) 0.0 06/30/18 10:02: Sodium 127 L, Potassium 4.5, Chloride 97 L, Carbon Dioxide 27, Anion Gap 7.5, BUN 60 H, Creatinine 1.01, Estimated Creat Clear 23, Estimated GFR 52 L, Est GFR ( Amer) 63, Glucose 67 L, Calcium 7.5 L, Total Bilirubin 0.4, AST 405 H*, ALT 717 H*, Alkaline Phosphatase 62, Total Creatine Kinase 41, CK-MB (CK-2) 1.6, CK-MB (CK-2) Rel Index 3.9, Troponin I < 0.02, Total Protein 5.0 L, Albumin 2.6 L, Globulin 2.4, Albumin/Globulin Ratio 1.1 06/30/18 10:02: TSH 24.63 H 06/30/18 10:02: Lipase 231 06/30/18 10:20: Stool Occult Blood Positive A 06/30/18 10:35: Urine Color Yellow, Urine Appearance Clear, Urine pH 7.0, Ur Specific [place] <= 1.005, Urine Protein Negative, Urine Glucose (UA) Negative, Urine Ketones Negative, Urine Blood Negative, Urine Nitrate Negative, Urine Bilirubin Negative, Urine Urobilinogen 0.2, Ur Leukocyte Esterase Negative, Urine RBC None, Urine WBC None, Ur Squamous Epith Cells Occasional, Urine Bacteria Trace 06/30/18 11:20: Blood Type A Positive, Antibody Screen Negative 06/30/18 15:10: WBC 9.8 D, RBC 3.26 L, Hgb 10.1 L D, Hct 29.2 L, MCV 89.6, MCH 30.7, MCHC 34.3, RDW 14.6, Plt Count 286, MPV 7.4, Neut % (Auto) 83.5 H, Lymph % (Auto) 10.1, [place] % (Auto) 5.4, Eos % (Auto) 1.0, Baso % (Auto) 0.1, Neut # ( Auto) 8.2 H, Lymph # (Auto) 1.0, [place] # (Auto) 0.5, Eos # (Auto) 0.1, Baso # ( Auto) 0.0 06/30/18 17:25: PT 10.3, INR 1.00 06/30/18 17:25: APTT 26.4 07/01/18 04:20: WBC 6.9 D, RBC 2.82 L, Hgb 8.7 L D, Hct 26.4 L, MCV 93.7, MCH 30.7, MCHC 32.8, RDW 14.7, Plt Count 277, MPV 7.2 L, Neut % (Auto) 81.1 H, Lymph % (Auto) 11.1, [place] % (Auto) 6.2, Eos % (Auto) 1.5, Baso % (Auto) 0.1, Neut # (Auto) 5.6, Lymph # (Auto) 0.8, [place] # (Auto) 0.4, Eos # (Auto) 0.1, Baso # (Auto) 0.0 07/01/18 04:20: Sodium 132 L, Potassium 4.3, Chloride 101, Carbon Dioxide 32, Anion Gap 3.3 L, BUN 32 H D, Creatinine 0.84, Estimated Creat Clear 22, Estimated GFR 64, Est GFR ( Amer) 78 D, Glucose 82 D, Calcium 8.3 L D, Total Bilirubin 0.4, AST 229 H D, ALT 555 H*, Alkaline Phosphatase 72, Total Protein 5.2 L, Albumin 2.6 L, Globulin 2.6, Albumin/Globulin Ratio 1.0 L I & O for Last 24 hours: Intake & Output 06/28/18 06/29/18 06/30/18 07/01/18 11:59 11:59 11:59 11:59 Intake Total 153 / 153 Output Total 1800 / 1800 Balance -1647 / -1647 Weight 82 lb 77 lb - Constitutional no acute distress - *Routine Respiratory Exam Present: decreased breath sounds - *Routine Cardiovascular Exam Present: RRR - *Routine Abdominal Exam Present: soft, normoactive bowel sounds, tenderness (epigastric area) - *Routine Extremities Exam Absent: edema Assessment and Plan (1) Upper GI bleed Current visit: Yes Status: Acute Category: Medical Code(s): K92.2 - Gastrointestinal hemorrhage, unspecified (2) Elevated liver enzymes Current visit: Yes Status: Acute Category: Medical Code(s): R74.8 - Abnormal levels of other serum enzymes (3) Liver mass, 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 Category: Medical Code(s): R16.0 - Hepatomegaly, not elsewhere classified (4) Left femoral hernia without obstruction or gangrene Current visit: Yes Status: Chronic Category: Surgical Code(s): K41.90 - Unilateral femoral hernia, without obstruction or gangrene, not specified as recurrent (5) Anemia, 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 Category: Medical Code(s): D50.0 - Iron deficiency anemia secondary to blood loss (chronic) (6) Hypothyroidism Current visit: Yes Status: Chronic Qualifiers: Hypothyroidism type: unspecified Qualified Code(s): E03.9 - Hypothyroidism , unspecified Category: Medical Code(s): E03.9 - Hypothyroidism, unspecified (7) Esophageal stricture Current visit: Yes Status: Acute Category: Medical Code(s): K22.2 - Esophageal obstruction (8) Compression fracture of lumbosacral spine Current visit: Yes Status: Acute Category: Medical Code(s): S32.000A - Wedge compression fracture of unspecified lumbar vertebra, initial encounter for closed fracture - Assessment and plan all Dx Assessment and Plan for all problems:: Will discuss pain medication change with Dr. Rodriguez from IV morphine to either an oral medication or pain patch. Dr. Christensen has been consulted for possible kyphoplasty. Patient is scheduled for an upper GI with small bowel follow- through this morning. H&H is stable from the first blood draw.
[2018-07-01 09:20] LABS: Hepatitis B Core Antibody IgM Negative (Negative); Hepatitis B Surface Antigen Negative (Negative)
[2018-07-01 16:19] LABS: Hematocrit 27.7 % (37.0-47.0); Hemoglobin 9.1 g/dL (12.2-16.2)
[2018-07-01 21:32] LABS: Hematocrit 26.9 % (37.0-47.0); Hemoglobin 8.9 g/dL (12.2-16.2)
--- NOTE | 2018-07-02 06:53 | Progress Note ---
Subjective Patient reports: no new complaints (persistent back pain) Exam Vital signs and Labs for Last 24 Hours: Temp Pulse Resp BP Pulse Ox 97.6 F 58 L 20 111/83 98 07/02/18 04:00 07/02/18 04:00 07/02/18 04:00 07/02/18 04:00 07/02/18 04:00 Laboratory Results - last 24 hr 07/01/18 16:05: Hgb 9.1 L, Hct 27.7 L 07/01/18 20:55: Hgb 8.9 L, Hct 26.9 L I & O for Last 24 hours: Intake & Output 06/29/18 06/30/18 07/01/18 07/02/18 11:59 11:59 11:59 11:59 Intake Total 153 / 153 337 / 337 Output Total 1800 / 1800 1974 Balance -1647 / -1647 -1638 / -1638 Weight 82 lb 77 lb - Constitutional no acute distress - *Routine Abdominal Exam Present: soft. 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
[2018-07-02 07:12] LABS: Basophils % 0.1 % (0.1-2.0); Eosinophils # 0.1 K/mm3 (0.0-0.4); Eosinophils % 0.8 % (0.1-12.0); Hematocrit 24.3 % (37.0-47.0); Lymphocytes # 0.6 K/mm3 (0.7-4.5); Mean Corpuscular HGB Conc 32.2 g/dL (31.8-35.4); Mean Corpuscular Hemoglobin 30.4 pg (27.0-31.2); Mean Corpuscular Volume 94.4 fl (81-99); Mean Platelet Volume 7.2 fl (7.4-10.4); Monocytes # 0.4 K/mm3 (0.1-1.0); Monocytes % 4.9 % (1.7-9.3); Neutrophils # 7.8 K/mm3 (1.8-7.8); Neutrophils % 87.3 % (37.0-80.0); Platelet Count 281 K/mm3 (142-424); Red Blood Count 2.58 M/mm3 (4.20-5.40)
[2018-07-02 07:21] LABS: Albumin Level 2.3 gm/dL (3.4-5.0); Albumin/Globulin Ratio 0.9 (1.1-1.8); Anion Gap 3.1 mEq/L (5-15); Bilirubin,Total 0.5 mg/dL (0.2-1.0); Calcium 8.2 mg/dL (8.5-10.1); Globulin 2.7 gm/dl (1.3-3.2); Potassium 4.1 mmoL/L (3.5-5.1)
[2018-07-02 07:23] LABS: Hemoglobin 7.8 g/dL (12.2-16.2)
[2018-07-02 08:02] LABS: Lymphocytes % 8 % (10-50); Monocytes % 2 % (2-9); Neutrophils % 89 % (42-76); Total Cells Counted 100
[2018-07-02 08:05] LABS: RBC Morphology Normal
--- NOTE | 2018-07-02 08:26 | Progress Note ---
Internal Medicine - PN: Subj *Date: 07/02/18 *Time: 08:22 Interval history: Patient states she is feeling about the same today. Her back is still hurting. She has not been seen by pain management. She did have the upper GI but results are not back. She tried to eat some oatmeal this morning and now her upper abdomen is hurting. She has not had a bowel movement and is requesting her MiraLAX. Exam Vital signs and Labs for Last 24 Hours: Temp Pulse Resp BP Pulse Ox 98.5 F 56 L 18 118/56 99 07/02/18 08:00 07/02/18 08:00 07/02/18 08:00 07/02/18 08:00 07/02/18 08:00 Laboratory Results - last 24 hr 07/01/18 16:05: Hgb 9.1 L, Hct 27.7 L 07/01/18 20:55: Hgb 8.9 L, Hct 26.9 L 07/02/18 06:15: WBC 9.0 D, RBC 2.58 L, Hgb 7.8 L*, Hct 24.3 L, MCV 94.4, MCH 30.4, MCHC 32.2, RDW 15.0, Plt Count 281, MPV 7.2 L, Neut % (Auto) 87.3 H, Lymph % (Auto) 7.0 L, [place] % (Auto) 4.9, Eos % (Auto) 0.8, Baso % (Auto) 0.1, Neut # (Auto) 7.8, Lymph # (Auto) 0.6 L, [place] # (Auto) 0.4, Eos # (Auto) 0.1, Baso # (Auto) 0.0, Total Counted 100, Neutrophils % (Manual) 89 H, Band Neutrophils % 1.0, Lymphocytes % (Manual) 8 L, Monocytes % (Manual) 2, Platelet Estimate Normal, RBC Morphology Normal 07/02/18 06:15: Sodium 127 L, Potassium 4.1, Chloride 94 L, Carbon Dioxide 34 H , Anion Gap 3.1 L, BUN 24 H, Creatinine 1.03 H D, Estimated Creat Clear 22, Estimated GFR 51 L, Est GFR ( Amer) 61 D, Glucose 143 H, Calcium 8.2 L, Total Bilirubin 0.5, AST 142 H D, ALT 437 H*, Alkaline Phosphatase 71, Total Protein 5.0 L, Albumin 2.3 L D, Globulin 2.7, Albumin/Globulin Ratio 0.9 L I & O for Last 24 hours: Intake & Output 06/29/18 06/30/18 07/01/18 07/02/18 11:59 11:59 11:59 11:59 Intake Total 153 / 153 817 / 817 Output Total 1800 / 1800 1974 Balance -1647 / -1647 -1158 / -1158 Weight 82 lb 77 lb - Constitutional no acute distress - *Routine Respiratory Exam Present: distant breath sounds - *Routine Cardiovascular Exam Present: RRR - *Routine Abdominal Exam Present: soft, normoactive bowel sounds, tenderness (epigastric area) - *Routine Extremities Exam Absent: edema Assessment and Plan (1) Upper GI bleed Current visit: Yes Status: Acute Category: Medical Code(s): K92.2 - Gastrointestinal hemorrhage, unspecified (2) Elevated liver enzymes Current visit: Yes Status: Acute Category: Medical Code(s): R74.8 - Abnormal levels of other serum enzymes (3) Liver mass, 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 Category: Medical Code(s): R16.0 - Hepatomegaly, not elsewhere classified (4) Left femoral hernia without obstruction or gangrene Current visit: Yes Status: Chronic Category: Surgical Code(s): K41.90 - Unilateral femoral hernia, without obstruction or gangrene, not specified as recurrent (5) Anemia, 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 Category: Medical Code(s): D50.0 - Iron deficiency anemia secondary to blood loss (chronic) (6) Hypothyroidism Current visit: Yes Status: Chronic Qualifiers: Hypothyroidism type: unspecified Qualified Code(s): E03.9 - Hypothyroidism , unspecified Category: Medical Code(s): E03.9 - Hypothyroidism, unspecified (7) Esophageal stricture Current visit: Yes Status: Acute Category: Medical Code(s): K22.2 - Esophageal obstruction (8) Compression fracture of lumbosacral spine Current visit: Yes Status: Acute Category: Medical Code(s): S32.000A - Wedge compression fracture of unspecified lumbar vertebra, initial encounter for closed fracture - Assessment and plan all Dx Assessment and Plan for all problems:: Patient's H&H has dropped. Will order 2 units of packed red blood cells. Will also start patient back on her MiraLAX. Awaiting upper GI report.
--- NOTE | 2018-07-02 10:42 | Consult Report ---
Assessment and Plan (1) Upper GI bleed Current visit: Yes Status: Acute Category: Medical Code(s): K92.2 - Gastrointestinal hemorrhage, unspecified (2) Elevated liver enzymes Current visit: Yes Status: Acute Category: Medical Code(s): R74.8 - Abnormal levels of other serum enzymes (3) Liver mass, 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 Category: Medical Code(s): R16.0 - Hepatomegaly, not elsewhere classified (4) Left femoral hernia without obstruction or gangrene Current visit: Yes Status: Chronic Category: Surgical Code(s): K41.90 - Unilateral femoral hernia, without obstruction or gangrene, not specified as recurrent (5) Anemia, 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 Category: Medical Code(s): D50.0 - Iron deficiency anemia secondary to blood loss (chronic) (6) Hypothyroidism Current visit: Yes Status: Chronic Qualifiers: Hypothyroidism type: unspecified Qualified Code(s): E03.9 - Hypothyroidism , unspecified Category: Medical Code(s): E03.9 - Hypothyroidism, unspecified (7) Esophageal stricture Current visit: Yes Status: Acute Category: Medical Code(s): K22.2 - Esophageal obstruction (8) Compression fracture of lumbosacral spine Current visit: Yes Status: Acute Category: Medical Code(s): S32.000A - Wedge compression fracture of unspecified lumbar vertebra, initial encounter for closed fracture From x-ray it seems that patient does have an acute fracture of the L3 vertebral body. We would suggest getting a back brace to help her with her pain symptoms. We would also recommend a MRI of lumbar spine to discern the L3 compression fracture as far as extent and age. We are unable to seek approval for kyphoplasty procedure without obtaining a new MRI of lumbar spine. After we obtain the MRI we will seek approval for kyphoplasty to be done as soon as possible. HPI - Data of Consult Patient: new to practice Consult date: 07/02/18 Requesting Physician: Ariadne Rodriguez MD Primary Care Provider: Ariadne Rodriguez MD Family Provider: Ariadne Rodriguez MD - Consult Narrative Reason for consult: Compression fracture History of present illness: Ms. Castillo is a 88 year old female who was admitted with GI bleed and anemia with elevated liver enzymes. She is being evaluated by general surgery for her GI bleed. She is receiving blood for her anemia. She also was found to have a compression fracture. X-rays done on admission show mild wedging of the L3 vertebral body along with superior and inferior endplate disruption which is developed since October 2017. She also has chronic wedging of her L1 vertebral body. This was on x-ray of lumbar spine. She has not had an MRI of the lumbar spine. She does not note any recent fall. She says pain has been worse over the last few months. Pain is concentrated over her belt line in the low back and she has some increasing pain on the right side lumbar area. Pain is worse with any movement. CC: Ariadne Rodriguez MD [facility] History I have reviewed the patient's past medical history: Yes Medical History: Reports:: Atrial Fibrillation, Chronic Obstructive Pulmonary Disease (COPD), Hypertension Denies:: Diabetes Mellitus Type 1, Diabetes Mellitus Type 2 Other Medical History: Reports: Arthritis, Hypothyroidism, Thyroid Disease - *Social History Alcohol Intake: never Occupational Status: retired - Psychiatric History Expresses thoughts of harming self/others: None Suicide Plan Description: No Plan *Family Hx:: Coronary Artery Disease, Diabetes Review of Systems - Review of Systems Review of systems:: pertinent systems reviewed and negative unless documented below - *Gastrointestinal Reports change in bowel habits, Reports change in stools, Reports heartburn - *Musculoskeletal Reports back pain, Reports limited joint movement - *Neurologic Reports unsteadiness, Reports dizziness, Reports tingling/numbness/burning sensations (mouth and tongue), Reports dizziness, Reports weakness Meds Home Medications Medication Instructions Recorded Confirmed Type Albuterol Sulfate [Albuterol HFA 2 puffs PO QIDP PRN 06/03/18 07/01/18 History Inhaler] Hyoscyamine Sulfate 0.125 mg PO QID 06/03/18 07/01/18 History Aspirin [Aspirin 81mg chewable 81 mg PO DAILY 06/30/18 07/01/18 History tab] Bifidobacterium Infantis [Align] 4 mg PO WEEKLY 06/30/18 07/01/18 History Bisoprolol Fumarate [Zebeta 5mg 5 mg PO DAILY 06/30/18 07/01/18 History tablet] Chlorhexidine Gluconate [Peridex] 5 ml MISCELLANE NEEDED PRN 06/30/18 History Cholecalciferol (Vitamin D3) 1,000 unit PO DAILY 06/30/18 07/01/18 History [Vitamin D3 1,000 Unit Cap] Ferrous Gluconate [Ferrous 324 mg PO DAILY 06/30/18 07/01/18 History Gluconate 324mg Tab] Furosemide [Furosemide 40MG tAB] 80 mg PO HS 06/30/18 07/01/18 History Furosemide [Lasix 40mg tab] 40 mg PO DAILY 06/30/18 07/01/18 History Hydrocortisone 10 mg PO DAILY 06/30/18 07/01/18 History Isosorbide Mononitrate [Imdur 30mg 60 mg PO DAILY 06/30/18 07/01/18 History ER tablet] Levalbuterol HCl [Levalbuterol 1.25 mg IH TID 06/30/18 07/01/18 History Concentrate] Levothyroxine Sodium 37.5 mcg PO Q48H 06/30/18 07/01/18 History [Levothyroxine 75mcg (0.075mg) Tab] Levothyroxine Sodium 75 mcg PO Q48H 06/30/18 07/01/18 History [Levothyroxine 75mcg (0.075mg) Tab] Loratadine [Claritin 10mg Tablet] 10 mg PO DAILY 06/30/18 07/01/18 History Losartan Potassium 25 mg PO DAILY 06/30/18 07/01/18 History Magnesium Oxide [Mag-Ox 400mg Tab] 400 mg PO HS 06/30/18 07/01/18 History Metoclopramide HCl [Metoclopramide 10 mg PO AC 06/30/18 07/01/18 History 10mg Tablet] Nitroglycerin 0.4 mg SL NEEDED PRN 06/30/18 07/01/18 History Polyethylene Glycol 3350 [Gavilax] 17 gm PO DAILY 06/30/18 07/01/18 History Potassium Chloride [Klor-Con 20 meq PO DAILY 06/30/18 07/01/18 History Sprinkle 10mEq] Spironolactone 25 mg PO DAILY 06/30/18 07/01/18 History Umeclidinium [place] [Incruse 1 puff IH DAILY 06/30/18 07/01/18 History Ellipta] dilTIAZem HCl [Diltiazem 240mg 240 mg PO DAILY 06/30/18 07/01/18 History 24Hr ER Cap] metroNIDAZOLE [Metronidazole] 45 gm TP DAILY 06/30/18 07/01/18 History Tizanidine HCl 2 mg PO Q8HP PRN 07/01/18 07/01/18 History Allergies Allergy/AdvReac Type Severity Reaction Status Date / Time diatrizoate sodium Allergy Severe S-SWELLS-OR Verified 06/30/18 13:26 [From HYPAQUE] AL/THROAT Influenza Virus Vaccines Allergy Intermediate I-ITCHING Verified 06/30/18 13:26 [INFLUENZA VIRUS VACCINES] levofloxacin [From LEVAQUIN] Allergy Intermediate I-RASH Verified 06/30/18 13:26 codeine [CODEINE] Allergy Mild "HEADACHE" Verified 06/30/18 13:26 Sulfa (Sulfonamide Allergy Mild NA-NAUSEA/V Verified 06/30/18 13:26 Antibiotics) OMITING [SULFA (SULFONAMIDE ANTIBIOTICS)] mometasone furoate Allergy Unknown Verified 06/30/18 13:26 [From NASONEX] Objective Vital signs: Temp Pulse Resp BP Pulse Ox 98.5 F 56 L 18 118/56 99 07/02/18 08:00 07/02/18 08:00 07/02/18 08:00 07/02/18 08:00 07/02/18 08:00 - Routine Back/Spine/Pelvis Exam Back/Spine: Present: paraspinal tenderness, vertebral tenderness, pain with flexion, pain with rotation Opioid Risk Tool - Opioid Risk Tool-Female Family hx alcohol abuse: N Family hx illegal drugs: N Family hx rx drug abuse: N Personal hx alcohol abuse: N Personal hx illegal drugs: N Personal hx rx drug abuse: N Age: 45+ Hx of sexual abuse: N Mental health issues-ADD,OCD,Bipolar, etc: N Hx of depression: N Female Risk Score: 0
[2018-07-02 15:21] LABS: Hepatitis C Antibody 0.1 s/co ratio (0.0-0.9)
--- NOTE | 2018-07-02 17:24 | Progress Note ---
Internal Medicine - PN: Subj *Date: 07/02/18 *Time: 17:18 Interval history: Progress today in evaluation and treatment includes: 1. Pain mgmt consult by Dr. Christensen. See note. MRI requested with consideration of kyphoplasty 2. Physical therapy consult. See note. With resultant brace (no comment on use of TENS) 3. Back brace. 4. 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 Exam Vital signs and Labs for Last 24 Hours: Temp Pulse Resp BP Pulse Ox 98.6 F 60 16 146/57 97 07/02/18 17:17 07/02/18 17:17 07/02/18 17:17 07/02/18 17:17 07/02/18 17:17 Laboratory Results - last 24 hr 06/30/18 10:43: Hepatitis A IgM Ab Negative, Hep Bs Antigen Negative, Hep B Core IgM Ab Negative, Hepatitis C Antibody 0.1 06/30/18 11:20: Blood Type A Positive, Antibody Screen Negative, Crossmatch (AHG ) See Detail 07/01/18 20:55: Hgb 8.9 L, Hct 26.9 L 07/02/18 06:15: WBC 9.0 D, RBC 2.58 L, Hgb 7.8 L*, Hct 24.3 L, MCV 94.4, MCH 30.4, MCHC 32.2, RDW 15.0, Plt Count 281, MPV 7.2 L, Neut % (Auto) 87.3 H, Lymph % (Auto) 7.0 L, [place] % (Auto) 4.9, Eos % (Auto) 0.8, Baso % (Auto) 0.1, Neut # (Auto) 7.8, Lymph # (Auto) 0.6 L, [place] # (Auto) 0.4, Eos # (Auto) 0.1, Baso # (Auto) 0.0, Total Counted 100, Neutrophils % (Manual) 89 H, Band Neutrophils % 1.0, Lymphocytes % (Manual) 8 L, Monocytes % (Manual) 2, Platelet Estimate Normal, RBC Morphology Normal 07/02/18 06:15: Sodium 127 L, Potassium 4.1, Chloride 94 L, Carbon Dioxide 34 H , Anion Gap 3.1 L, BUN 24 H, Creatinine 1.03 H D, Estimated Creat Clear 22, Estimated GFR 51 L, Est GFR ( Amer) 61 D, Glucose 143 H, Calcium 8.2 L, Total Bilirubin 0.5, AST 142 H D, ALT 437 H*, Alkaline Phosphatase 71, Total Protein 5.0 L, Albumin 2.3 L D, Globulin 2.7, Albumin/Globulin Ratio 0.9 L 07/02/18 10:47: Blood Type Confirm A Positive I & O for Last 24 hours: Intake & Output 06/30/18 07/01/18 07/02/18 07/03/18 11:59 11:59 11:59 11:59 Intake Total 153 / 153 817 / 817 490 / 490 Output Total 1800 / 1800 1974 Balance -1647 / -1647 -1158 / -1158 490 / 490 Weight 82 lb 77 lb 77 lb 0.014 oz Assessment and Plan (1) Upper GI bleed Current visit: Yes Status: Acute Category: Medical Code(s): K92.2 - Gastrointestinal hemorrhage, unspecified (2) Elevated liver enzymes Current visit: Yes Status: Acute Category: Medical Code(s): R74.8 - Abnormal levels of other serum enzymes (3) Liver mass, 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 Category: Medical Code(s): R16.0 - Hepatomegaly, not elsewhere classified (4) Left femoral hernia without obstruction or gangrene Current visit: Yes Status: Chronic Category: Surgical Code(s): K41.90 - Unilateral femoral hernia, without obstruction or gangrene, not specified as recurrent (5) Anemia, 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 Category: Medical Code(s): D50.0 - Iron deficiency anemia secondary to blood loss (chronic) (6) Hypothyroidism Current visit: Yes Status: Chronic Qualifiers: Hypothyroidism type: unspecified Qualified Code(s): E03.9 - Hypothyroidism , unspecified Category: Medical Code(s): E03.9 - Hypothyroidism, unspecified (7) Esophageal stricture Current visit: Yes Status: Acute Category: Medical Code(s): K22.2 - Esophageal obstruction (8) Compression fracture of lumbosacral spine Current visit: Yes Status: Acute Category: Medical Code(s): S32.000A - Wedge compression fracture of unspecified lumbar vertebra, initial encounter for closed fracture
[2018-07-02 19:07] LABS: Hematocrit 34.8 % (37.0-47.0)
[2018-07-02 19:24] LABS: Hemoglobin 12.9 g/dL (12.2-16.2)
[2018-07-03 06:44] LABS: Basophils % 0.1 % (0.1-2.0); Eosinophils # 0.1 K/mm3 (0.0-0.4); Eosinophils % 0.9 % (0.1-12.0); Hematocrit 36.3 % (37.0-47.0); Hemoglobin 12.4 g/dL (12.2-16.2); Lymphocytes # 0.8 K/mm3 (0.7-4.5); Lymphocytes % 9.3 K/mm3 (10-50); Mean Corpuscular HGB Conc 34.1 g/dL (31.8-35.4); Mean Corpuscular Hemoglobin 30.6 pg (27.0-31.2); Mean Corpuscular Volume 89.7 fl (81-99); Mean Platelet Volume 7.1 fl (7.4-10.4); Monocytes # 0.5 K/mm3 (0.1-1.0); Monocytes % 5.9 % (1.7-9.3); Neutrophils % 83.7 % (37.0-80.0); Platelet Count 239 K/mm3 (142-424); Red Blood Count 4.04 M/mm3 (4.20-5.40); Red Cell Distribution Width 14.4 % (11.5-17.5); White Blood Count 8.4 K/mm3 (4.8-10.8)
[2018-07-03 06:58] LABS: Albumin Level 2.5 gm/dL (3.4-5.0); Albumin/Globulin Ratio 0.8 (1.1-1.8); Anion Gap 9.2 mEq/L (5-15); Bilirubin,Total 1.4 mg/dL (0.2-1.0); Calcium 8.4 mg/dL (8.5-10.1); Potassium 4.2 mmoL/L (3.5-5.1); Total Protein,Serum 5.5 gm/dL (6.4-8.2)
--- NOTE | 2018-07-03 08:36 | Progress Note ---
Subjective Patient reports: still having pain (back pain and abdominal pain (increased distention overnight)), flatus, no bowel movement Exam Vital signs and Labs for Last 24 Hours: Temp Pulse Resp BP Pulse Ox 99.1 F 60 18 136/45 96 07/03/18 04:00 07/03/18 07:23 07/03/18 07:23 07/03/18 07:23 07/03/18 07:23 Laboratory Results - last 24 hr 06/30/18 10:43: Hepatitis A IgM Ab Negative, Hep Bs Antigen Negative, Hep B Core IgM Ab Negative, Hepatitis C Antibody 0.1 06/30/18 11:20: Blood Type A Positive, Antibody Screen Negative, Crossmatch (AHG ) See Detail 07/02/18 10:47: Blood Type Confirm A Positive 07/02/18 18:50: Hgb 12.9 D, Hct 34.8 L 07/03/18 06:30: WBC 8.4, RBC 4.04 L D, Hgb 12.4, Hct 36.3 L, MCV 89.7, MCH 30.6 , MCHC 34.1, RDW 14.4, Plt Count 239, MPV 7.1 L, Neut % (Auto) 83.7 H, Lymph % ( Auto) 9.3 L, [place] % (Auto) 5.9, Eos % (Auto) 0.9, Baso % (Auto) 0.1, Neut # ( Auto) 7.0, Lymph # (Auto) 0.8, [place] # (Auto) 0.5, Eos # (Auto) 0.1, Baso # (Auto ) 0.0 07/03/18 06:30: Sodium 129 L, Potassium 4.2, Chloride 94 L, Carbon Dioxide 30, Anion Gap 9.2, BUN 14 D, Creatinine 0.95, Estimated Creat Clear 22, Estimated GFR 56 L, Est GFR ( Amer) 67, Glucose 85, Calcium 8.4 L, Total Bilirubin 1.4 H, AST 80 H D, ALT 327 H*, Alkaline Phosphatase 83, Total Protein 5.5 L, Albumin 2.5 L, Globulin 3.0, Albumin/Globulin Ratio 0.8 L I & O for Last 24 hours: Intake & Output 08/08/18 08/09/18 08/10/18 08/11/18 11:59 11:59 11:59 11:59 Intake Total 153 / 153 817 / 817 610 / 610 Output Total 1800 / 1800 1974 / 1974 190 / 190 Balance -1647 / -1647 -1158 / -1158 -1290 / -1290 Weight 82 lb 77 lb 77 lb 0.014 oz - Constitutional no acute distress - *Routine Respiratory Exam Absent: respiratory distress - *Routine Abdominal Exam Present: soft, distended Comments: no obvious incarceration at femoral hernia site Progress Note: A&P (1) Upper GI bleed Status: Acute Assessment and plan: no sign of definite ongoing loss Current Visit: Yes (2) Elevated liver enzymes Status: Acute Current Visit: Yes (3) Liver mass, left lobe Status: Chronic Current Visit: Yes (4) Left femoral hernia without obstruction or gangrene Status: Chronic Current Visit: Yes (5) Anemia, blood loss Status: Chronic Current Visit: Yes (6) Hypothyroidism Status: Chronic Current Visit: Yes (7) Esophageal stricture Status: Acute Current Visit: Yes (8) Compression fracture of lumbosacral spine Status: Acute Current Visit: Yes (9) Abdominal distention Status: Acute Assessment and plan: most likely secondary to ileus...no current incarceration at femoral hernia site fleet enema ordered (now) dulc supp ordered for later this AM flat and upright films ordered Current Visit: Yes
--- NOTE | 2018-07-03 13:43 | Progress Note ---
Internal Medicine - PN: Subj *Date: 07/03/18 *Time: 13:40 Interval history: She still has her back pain, but her main complaint today is her abdominal discomfort. She had some results with an enema and suppository. All of her lab work looks better. Exam Vital signs and Labs for Last 24 Hours: Temp Pulse Resp BP Pulse Ox 99.1 F 60 18 136/45 96 07/03/18 04:00 07/03/18 07:23 07/03/18 07:23 07/03/18 07:23 07/03/18 07:23 Laboratory Results - last 24 hr 06/30/18 10:43: Hepatitis A IgM Ab Negative, Hep Bs Antigen Negative, Hep B Core IgM Ab Negative, Hepatitis C Antibody 0.1 06/30/18 11:20: Blood Type A Positive, Antibody Screen Negative, Crossmatch (AHG ) See Detail 07/02/18 18:50: Hgb 12.9 D, Hct 34.8 L 07/03/18 06:30: WBC 8.4, RBC 4.04 L D, Hgb 12.4, Hct 36.3 L, MCV 89.7, MCH 30.6 , MCHC 34.1, RDW 14.4, Plt Count 239, MPV 7.1 L, Neut % (Auto) 83.7 H, Lymph % ( Auto) 9.3 L, [place] % (Auto) 5.9, Eos % (Auto) 0.9, Baso % (Auto) 0.1, Neut # ( Auto) 7.0, Lymph # (Auto) 0.8, [place] # (Auto) 0.5, Eos # (Auto) 0.1, Baso # (Auto ) 0.0 07/03/18 06:30: Sodium 129 L, Potassium 4.2, Chloride 94 L, Carbon Dioxide 30, Anion Gap 9.2, BUN 14 D, Creatinine 0.95, Estimated Creat Clear 22, Estimated GFR 56 L, Est GFR ( Amer) 67, Glucose 85, Calcium 8.4 L, Total Bilirubin 1.4 H, AST 80 H D, ALT 327 H*, Alkaline Phosphatase 83, Total Protein 5.5 L, Albumin 2.5 L, Globulin 3.0, Albumin/Globulin Ratio 0.8 L Laboratory Tests 07/02/18 07/02/18 07/02/18 06:15 06:15 18:50 WBC 9.0 D Hgb 7.8 L* 12.9 D Sodium Potassium Chloride Total Bilirubin AST 142 H D ALT 437 H* 07/03/18 07/03/18 06:30 06:30 WBC 8.4 Hgb 12.4 Sodium 129 L Potassium 4.2 Chloride 94 L Total Bilirubin 1.4 H AST 80 H D ALT 327 H* I & O for Last 24 hours: Intake & Output 07/01/18 07/02/18 07/03/18 07/04/18 11:59 11:59 11:59 11:59 Intake Total 153 / 153 817 / 817 610 / 610 Output Total 1800 / 1800 1974 / 1974 190 / 190 Balance -1647 / -1647 -1158 / -1158 -1290 / -1290 Weight 77 lb 77 lb 0.014 oz - Constitutional Comments: Uncomfortable due to her tummy - *Routine HEENT Exam Head: Present: normocephalic Eye: Present: PERRL ENT: Present: mucous membranes moist - *Routine Cardiovascular Exam Present: RRR - *Routine Abdominal Exam Present: distended - *Routine Extremities Exam 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 Current visit: Yes Status: Chronic Category: Surgical Code(s): K41.90 - Unilateral femoral hernia, without obstruction or gangrene, not specified as recurrent (5) Anemia, 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 Category: Medical Code(s): D50.0 - Iron deficiency anemia secondary to blood loss (chronic) (6) Hypothyroidism Current visit: Yes Status: Chronic Qualifiers: Hypothyroidism type: unspecified Qualified Code(s): E03.9 - Hypothyroidism , unspecified Category: Medical Code(s): E03.9 - Hypothyroidism, unspecified (7) Esophageal stricture Current visit: Yes Status: Acute Category: Medical Code(s): K22.2 - Esophageal obstruction (8) Compression fracture of lumbosacral spine Current visit: Yes Status: Acute Category: Medical Code(s): S32.000A - Wedge compression fracture of unspecified lumbar vertebra, initial encounter for closed fracture (9) Abdominal distention Current visit: Yes Status: Acute Category: Medical Code(s): R14.0 - Abdominal distension (gaseous) - Assessment and plan all Dx Assessment and Plan for all problems:: DC hyoscyamine. Metoclopramide ordered 2.5 mg before meals.
--- NOTE | 2018-07-04 08:31 | Progress Note ---
Subjective Patient reports: feels better, other (Some response (and improvement) with enema and suppository yesterday) Exam Vital signs and Labs for Last 24 Hours: Temp Pulse Resp BP Pulse Ox 98.2 F 51 L 18 137/45 96 07/04/18 07:41 07/04/18 07:41 07/04/18 07:41 07/04/18 07:41 07/04/18 08:00 I & O for Last 24 hours: Intake & Output 07/01/18 07/02/18 07/03/18 07/04/18 11:59 11:59 11:59 11:59 Intake Total 153 / 153 817 / 817 2026 / 2026 1200 / 1200 Output Total 1800 / 1800 1974 / 1974 2099 / 2099 1450 / 1450 Balance -1647 / -1647 -1158 / -1158 -73 / -73 -250 / -250 Weight 77 lb 77 lb 0.014 oz - Constitutional no acute distress - *Routine Respiratory Exam Absent: respiratory distress - *Routine Abdominal Exam Present: soft Comments: Slightly less distended and somewhat less tender to palpation Progress Note: A&P (1) Upper GI bleed Status: Acute Current Visit: Yes (2) Elevated liver enzymes Status: Acute Current Visit: Yes (3) Liver mass, left lobe Status: Chronic Current Visit: Yes (4) Left femoral hernia without obstruction or gangrene Status: Chronic Current Visit: Yes (5) Anemia, blood loss Status: Chronic Current Visit: Yes (6) Hypothyroidism Status: Chronic Current Visit: Yes (7) Esophageal stricture Status: Acute Current Visit: Yes (8) Compression fracture of lumbosacral spine Status: Acute Current Visit: Yes (9) Abdominal distention Status: Acute Assessment and plan: Likely secondary to ileus. Some improvement with suppository and enema yesterday. Repeat enema and repeat suppository today Current Visit: Yes
--- NOTE | 2018-07-04 10:08 | Progress Note ---
Internal Medicine - PN: Subj *Date: 07/04/18 *Time: 10:05 Interval history: Overall she seems improved. Her sputum has gotten thicker and greener. She gets relief from her back pain using the back brace. She describes some numbness of the legs. Her bowels are reluctantly acting. Dr. Murray ordered a repeat enema which she is not enthusiastic about. Will she be able to hold her H&H stable? Will Dr. Christensen do kyphoplasty? Exam Vital signs and Labs for Last 24 Hours: Temp Pulse Resp BP Pulse Ox 98.2 F 51 L 18 137/45 96 07/04/18 07:41 07/04/18 07:41 07/04/18 07:41 07/04/18 07:41 07/04/18 08:00 I & O for Last 24 hours: Intake & Output 07/01/18 07/02/18 07/03/18 07/04/18 11:59 11:59 11:59 11:59 Intake Total 153 / 153 817 / 817 2026 / 2026 1200 / 1200 Output Total 1800 / 1800 1974 / 1974 2100 / 2100 1450 / 1450 Balance -1647 / -1647 -1158 / -1158 -73 / -73 -250 / -250 Weight 77 lb 77 lb 0.014 oz - Constitutional no acute distress - *Routine Respiratory Exam Absent: respiratory distress - *Routine Cardiovascular Exam Present: bradycardia - *Routine Abdominal Exam Present: distended - *Routine Extremities Exam Present: edema Assessment and Plan (1) Upper GI bleed Current visit: Yes Status: Acute Category: Medical Code(s): K92.2 - Gastrointestinal hemorrhage, unspecified (2) Elevated liver enzymes Current visit: Yes Status: Acute Category: Medical Code(s): R74.8 - Abnormal levels of other serum enzymes (3) Liver mass, 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 Category: Medical Code(s): R16.0 - Hepatomegaly, not elsewhere classified (4) Left femoral hernia without obstruction or gangrene Current visit: Yes Status: Chronic Category: Surgical Code(s): K41.90 - Unilateral femoral hernia, without obstruction or gangrene, not specified as recurrent (5) Anemia, 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 Category: Medical Code(s): D50.0 - Iron deficiency anemia secondary to blood loss (chronic) (6) Hypothyroidism Current visit: Yes Status: Chronic Qualifiers: Hypothyroidism type: unspecified Qualified Code(s): E03.9 - Hypothyroidism , unspecified Category: Medical Code(s): E03.9 - Hypothyroidism, unspecified (7) Esophageal stricture Current visit: Yes Status: Acute Category: Medical Code(s): K22.2 - Esophageal obstruction (8) Compression fracture of lumbosacral spine Current visit: Yes Status: Acute Category: Medical Code(s): S32.000A - Wedge compression fracture of unspecified lumbar vertebra, initial encounter for closed fracture (9) Abdominal distention Current visit: Yes Status: Acute Category: Medical Code(s): R14.0 - Abdominal distension (gaseous) (10) Chronic bronchitis Current visit: Yes Status: Acute Category: Medical Code(s): J42 - Unspecified chronic bronchitis
[2018-07-05 06:28] LABS: Basophils % 0.1 % (0.1-2.0); Eosinophils # 0.1 K/mm3 (0.0-0.4); Hematocrit 34.9 % (37.0-47.0); Hemoglobin 11.5 g/dL (12.2-16.2); Lymphocytes % 14.1 K/mm3 (10-50); Mean Corpuscular HGB Conc 32.9 g/dL (31.8-35.4); Mean Corpuscular Hemoglobin 30.2 pg (27.0-31.2); Mean Corpuscular Volume 91.6 fl (81-99); Mean Platelet Volume 7.1 fl (7.4-10.4); Monocytes # 0.6 K/mm3 (0.1-1.0); Monocytes % 7.7 % (1.7-9.3); Neutrophils # 5.6 K/mm3 (1.8-7.8); Neutrophils % 76.1 % (37.0-80.0); Platelet Count 268 K/mm3 (142-424); Red Blood Count 3.81 M/mm3 (4.20-5.40); Red Cell Distribution Width 14.6 % (11.5-17.5); White Blood Count 7.3 K/mm3 (4.8-10.8)
--- NOTE | 2018-07-05 06:54 | Progress Note ---
Subjective Patient reports: no new complaints ("belly is a bit better"...fairly normal BM per NSG this AM) Exam Vital signs and Labs for Last 24 Hours: Temp Pulse Resp BP Pulse Ox 98.2 F 56 L 16 120/45 99 07/05/18 04:00 07/05/18 04:00 07/05/18 04:00 07/05/18 04:00 07/05/18 04:00 Laboratory Results - last 24 hr 07/05/18 06:16: WBC 7.3, RBC 3.81 L, Hgb 11.5 L, Hct 34.9 L, MCV 91.6, MCH 30.2 , MCHC 32.9, RDW 14.6, Plt Count 268, MPV 7.1 L, Neut % (Auto) 76.1, Lymph % ( Auto) 14.1, [place] % (Auto) 7.7, Eos % (Auto) 2.0, Baso % (Auto) 0.1, Neut # (Auto ) 5.6, Lymph # (Auto) 1.0, [place] # (Auto) 0.6, Eos # (Auto) 0.1, Baso # (Auto) 0.0 I & O for Last 24 hours: Intake & Output 07/02/18 07/03/18 07/04/18 07/05/18 11:59 11:59 11:59 11:59 Intake Total 817 / 817 2026 / 2026 1200 / 1200 1240 / 1240 Output Total 1974 2100 / 2099 1450 / 1450 1850 / 1850 Balance -1158 / -1158 -73 / -73 -250 / -250 -610 / -610 Weight 77 lb 0.014 oz - Constitutional no acute distress - *Routine Respiratory Exam Absent: respiratory distress - *Routine Abdominal Exam Present: soft Comments: much less distended and essentially non-tender Progress Note: A&P (1) Upper GI bleed Status: Acute Assessment and plan: no sign of ongoing blood loss continue PPI Current Visit: Yes (2) Elevated liver enzymes Status: Acute Current Visit: Yes (3) Liver mass, left lobe Status: Chronic Current Visit: Yes (4) Left femoral hernia without obstruction or gangrene Status: Chronic Current Visit: Yes (5) Anemia, blood loss Status: Chronic Current Visit: Yes (6) Hypothyroidism Status: Chronic Current Visit: Yes (7) Esophageal stricture Status: Acute Current Visit: Yes (8) Compression fracture of lumbosacral spine Status: Acute Current Visit: Yes (9) Abdominal distention Status: Acute Assessment and plan: likely secondary to ileus...improved this AM..."normal" BM this AM advance back to full liquids Current Visit: Yes (10) Chronic bronchitis Status: Acute Current Visit: Yes
[2018-07-05 07:04] LABS: Albumin Level 2.2 gm/dL (3.4-5.0); Albumin/Globulin Ratio 0.8 (1.1-1.8); Anion Gap 8.8 mEq/L (5-15); Bilirubin,Total 0.6 mg/dL (0.2-1.0); Calcium 8.3 mg/dL (8.5-10.1); Globulin 2.9 gm/dl (1.3-3.2); Potassium 3.8 mmoL/L (3.5-5.1); Total Protein,Serum 5.1 gm/dL (6.4-8.2)
--- NOTE | 2018-07-05 08:06 | Progress Note ---
Internal Medicine - PN: Subj *Date: 07/05/18 *Time: 08:03 Interval history: Pt resting quietly in bed, states she tolerated liquid diet well this morning, denies any pain, reports only "lots of gas". She denies any SOB, notes her cough has become less frequent and less productive overnight. Exam Vital signs and Labs for Last 24 Hours: Temp Pulse Resp BP Pulse Ox 98.1 F 52 L 18 142/74 98 07/05/18 07:20 07/05/18 07:20 07/05/18 07:20 07/05/18 07:20 07/05/18 07:20 Laboratory Results - last 24 hr 07/05/18 06:16: WBC 7.3, RBC 3.81 L, Hgb 11.5 L, Hct 34.9 L, MCV 91.6, MCH 30.2 , MCHC 32.9, RDW 14.6, Plt Count 268, MPV 7.1 L, Neut % (Auto) 76.1, Lymph % ( Auto) 14.1, [place] % (Auto) 7.7, Eos % (Auto) 2.0, Baso % (Auto) 0.1, Neut # (Auto ) 5.6, Lymph # (Auto) 1.0, [place] # (Auto) 0.6, Eos # (Auto) 0.1, Baso # (Auto) 0.0 07/05/18 06:16: Sodium 130 L, Potassium 3.8, Chloride 95 L, Carbon Dioxide 30, Anion Gap 8.8, BUN 12, Creatinine 1.01, Estimated Creat Clear 22, Estimated GFR 52 L, Est GFR ( Amer) 63, Glucose 65 L, Calcium 8.3 L, Total Bilirubin 0.6, AST 32 D, ALT 174 H D, Alkaline Phosphatase 81, Total Protein 5.1 L, Albumin 2.2 L, Globulin 2.9, Albumin/Globulin Ratio 0.8 L I & O for Last 24 hours: Intake & Output 07/02/18 07/03/18 07/04/18 07/05/18 11:59 11:59 11:59 11:59 Intake Total 817 / 817 2026 / 2026 1200 / 1200 1959 / 1959 Output Total 1974 / 1974 2099 / 2099 1450 / 1450 1850 / 1850 Balance -1158 / -1158 -73 / -73 -250 / -250 110 / 110 Weight 77 lb 0.014 oz - Constitutional no acute distress - *Routine HEENT Exam Head: Present: normocephalic, atraumatic ENT: Present: mucous membranes moist - *Routine Respiratory Exam Comments: good air movement with expiratory wheezes throughout - *Routine Cardiovascular Exam Present: RRR - *Routine Abdominal Exam Comments: BS x 4, hyperactive, soft, nontender, mildly distended - *Routine Extremities Exam Present: pulses intact. Absent: edema, calf tenderness - *Routine Neurological Exam Present: alert, oriented X3, moving all extremities, normal speech Assessment and Plan (1) Upper GI bleed Current visit: Yes Status: Acute Category: Medical Code(s): K92.2 - Gastrointestinal hemorrhage, unspecified (2) Elevated liver enzymes Current visit: Yes Status: Acute Category: Medical Code(s): R74.8 - Abnormal levels of other serum enzymes (3) Liver mass, 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 Category: Medical Code(s): R16.0 - Hepatomegaly, not elsewhere classified (4) Left femoral hernia without obstruction or gangrene Current visit: Yes Status: Chronic Category: Surgical Code(s): K41.90 - Unilateral femoral hernia, without obstruction or gangrene, not specified as recurrent (5) Anemia, 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 Category: Medical Code(s): D50.0 - Iron deficiency anemia secondary to blood loss (chronic) (6) Hypothyroidism Current visit: Yes Status: Chronic Qualifiers: Hypothyroidism type: unspecified Qualified Code(s): E03.9 - Hypothyroidism , unspecified Category: Medical Code(s): E03.9 - Hypothyroidism, unspecified (7) Esophageal stricture Current visit: Yes Status: Acute Category: Medical Code(s): K22.2 - Esophageal obstruction (8) Compression fracture of lumbosacral spine Current visit: Yes Status: Acute Category: Medical Code(s): S32.000A - Wedge compression fracture of unspecified lumbar vertebra, initial encounter for closed fracture (9) Abdominal distention Current visit: Yes Status: Acute Category: Medical Code(s): R14.0 - Abdominal distension (gaseous) (10) Chronic bronchitis Current visit: Yes Status: Acute Category: Medical Code(s): J42 - Unspecified chronic bronchitis - Assessment and plan all Dx Assessment and Plan for all problems:: continue current care
--- NOTE | 2018-07-06 07:54 | Progress Note ---
Internal Medicine - PN: Subj *Date: 07/06/18 *Time: 08:08 Interval history: Pt is sitting up in chair eating breakfast, tolerating full liquids without vomiting, has had some nausea which she attributes to her lumbar support not having been applied comfortably. She reports loose BM x 1 overnight. She denies any SOB, notes cough and chest congestion are much improved today. Pt and daughter inquire as to the results of chest CT completed yesterday. Exam Vital signs and Labs for Last 24 Hours: Temp Pulse Resp BP Pulse Ox 97.7 F 50 L 18 139/48 99 07/06/18 04:00 07/06/18 04:00 07/06/18 04:00 07/06/18 04:00 07/06/18 04:00 Laboratory Results - last 24 hr 07/05/18 06:16: TSH 53.72 H D I & O for Last 24 hours: Intake & Output 07/03/18 07/04/18 07/05/18 07/06/18 11:59 11:59 11:59 11:59 Intake Total 2026 / 2026 1200 / 1200 1960 / 1960 1440 / 1440 Output Total 2100 / 2100 1450 / 1450 1850 / 1850 1501 / 1501 Balance -73 / -73 -250 / -250 110 / 110 -61 / -61 Weight 77 lb 0.014 oz Radiology Reports for the Last 24 Hours: 07/05/18 CT chest: IMPRESSION: 1. 1.5 cm spiculated right upper lobe nodule suspicious for neoplasm. This is not amenable to percutaneous CT directed biopsy 2. Centrilobular emphysema/COPD. 3. Trace bilateral effusions with bibasilar atelectasis 4. Thoracic kyphosis. Multiple wedge compression changes. - Constitutional no acute distress - *Routine HEENT Exam Head: Present: normocephalic, atraumatic ENT: Present: mucous membranes moist - *Routine Neck Exam Present: supple, full ROM - *Routine Respiratory Exam Comments: good air movement with few rhonchi, no wheezes - *Routine Cardiovascular Exam Present: RRR - *Routine Abdominal Exam Comments: BS x 4, hyperactive, soft, nontender, mildly distended - *Routine Extremities Exam Present: full ROM, pulses intact, normal capillary refill. Absent: edema, calf tenderness - Routine Back/Spine/Pelvis Exam Comments: orthotic device in place - *Routine Neurological Exam Present: alert, oriented X3, moving all extremities, normal speech. Absent: sensory deficit Assessment and Plan (1) Upper GI bleed Current visit: Yes Status: Acute Category: Medical Code(s): K92.2 - Gastrointestinal hemorrhage, unspecified (2) Elevated liver enzymes Current visit: Yes Status: Acute Category: Medical Code(s): R74.8 - Abnormal levels of other serum enzymes (3) Liver mass, 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 Category: Medical Code(s): R16.0 - Hepatomegaly, not elsewhere classified (4) Left femoral hernia without obstruction or gangrene Current visit: Yes Status: Chronic Category: Surgical Code(s): K41.90 - Unilateral femoral hernia, without obstruction or gangrene, not specified as recurrent (5) Anemia, 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 Category: Medical Code(s): D50.0 - Iron deficiency anemia secondary to blood loss (chronic) (6) Hypothyroidism Current visit: Yes Status: Chronic Qualifiers: Hypothyroidism type: unspecified Qualified Code(s): E03.9 - Hypothyroidism , unspecified Category: Medical Code(s): E03.9 - Hypothyroidism, unspecified (7) Esophageal stricture Current visit: Yes Status: Acute Category: Medical Code(s): K22.2 - Esophageal obstruction (8) Compression fracture of lumbosacral spine Current visit: Yes Status: Acute Category: Medical Code(s): S32.000A - Wedge compression fracture of unspecified lumbar vertebra, initial encounter for closed fracture (9) Abdominal distention Current visit: Yes Status: Acute Category: Medical Code(s): R14.0 - Abdominal distension (gaseous) (10) Chronic bronchitis Current visit: Yes Status: Acute Category: Medical Code(s): J42 - Unspecified chronic bronchitis - Assessment and plan all Dx Assessment and Plan for all problems:: Will continue current care. Nursing is asked to reposition lumbar support. Will discuss CT findings suspicious for neoplasm with Dr. Rodriguez, as well as elevated TSH.
--- NOTE | 2018-07-06 08:23 | Progress Note ---
Subjective Patient reports: no new complaints (+ loose stool overnight) Exam Vital signs and Labs for Last 24 Hours: Temp Pulse Resp BP Pulse Ox 97.7 F 61 18 114/58 98 07/06/18 08:00 07/06/18 08:00 07/06/18 08:00 07/06/18 08:00 07/06/18 08:00 Laboratory Results - last 24 hr 07/05/18 06:16: TSH 53.72 H D I & O for Last 24 hours: Intake & Output 07/03/18 07/04/18 07/05/18 07/06/18 11:59 11:59 11:59 11:59 Intake Total 2026 / 2026 1200 / 1200 1960 / 1960 1979 / 1979 Output Total 2099 / 2099 1450 / 1450 1850 / 1850 1501 / 1501 Balance -73 / -73 -250 / -250 110 / 110 479 / 479 Weight 77 lb 0.014 oz - Constitutional no acute distress - *Routine Respiratory Exam Absent: respiratory distress - *Routine Abdominal Exam Present: soft Progress Note: A&P (1) Upper GI bleed Status: Acute Assessment and plan: stable with no sign of definite ongoing blood loss Current Visit: Yes (2) Elevated liver enzymes Status: Acute Current Visit: Yes (3) Liver mass, left lobe Status: Chronic Current Visit: Yes (4) Left femoral hernia without obstruction or gangrene Status: Chronic Current Visit: Yes (5) Anemia, blood loss Status: Chronic Current Visit: Yes (6) Hypothyroidism Status: Chronic Current Visit: Yes (7) Esophageal stricture Status: Acute Current Visit: Yes (8) Compression fracture of lumbosacral spine Status: Acute Current Visit: Yes (9) Abdominal distention Status: Acute Assessment and plan: likely secondary to ileus...now with multiple "loose" BMs slowly advance diet as tolerated d/c mineral oil Current Visit: Yes (10) Chronic bronchitis Status: Acute Current Visit: Yes
--- NOTE | 2018-07-07 07:12 | Progress Note ---
Subjective Patient reports: no new complaints (small BM yesterday (per pt)) Exam Vital signs and Labs for Last 24 Hours: Temp Pulse Resp BP Pulse Ox 98.1 F 53 L 18 155/55 99 07/07/18 03:31 07/07/18 03:31 07/07/18 03:31 07/07/18 03:31 07/07/18 03:31 I & O for Last 24 hours: Intake & Output 07/04/18 07/05/18 07/06/18 07/07/18 11:59 11:59 11:59 11:59 Intake Total 1200 / 1200 1960 / 1960 1979 / 1979 840 / 840 Output Total 1450 / 1450 1850 / 1850 1501 / 1501 700 / 700 Balance -250 / -250 110 / 110 479 / 479 140 / 140 - Constitutional no acute distress - *Routine Respiratory Exam Absent: respiratory distress - *Routine Cardiovascular Exam Present: RRR - *Routine Abdominal Exam Present: soft, distended Progress Note: A&P (1) Upper GI bleed Status: Acute Assessment and plan: no sign of ongoing blood loss Current Visit: Yes (2) Elevated liver enzymes Status: Acute Current Visit: Yes (3) Liver mass, left lobe Status: Chronic Current Visit: Yes (4) Left femoral hernia without obstruction or gangrene Status: Chronic Current Visit: Yes (5) Anemia, blood loss Status: Chronic Current Visit: Yes (6) Hypothyroidism Status: Chronic Current Visit: Yes (7) Esophageal stricture Status: Acute Current Visit: Yes (8) Compression fracture of lumbosacral spine Status: Acute Current Visit: Yes (9) Abdominal distention Status: Acute Assessment and plan: likely due to ileus (poor overall mobility) maintain caution with meal advancement treat symptomatically as needed Current Visit: Yes (10) Chronic bronchitis Status: Acute Current Visit: Yes
--- NOTE | 2018-07-07 07:58 | Progress Note ---
Internal Medicine - PN: Subj *Date: 07/07/18 *Time: 08:08 Interval history: Slept very little due to SOB and cough; She has difficulty bring up sputum. Inhaler does help. Had intermittent CP lasting a "few minutes" . Thought may be due to her coughing. She did sleep a little yesterday. She was up in a chair for a couple of hours. She states her pain is mostly controlled with the brace. She has been seen by Dr. Fernández this morning. She is trying to eat food and has consumed some eggs and biscuit this a.m. without problems. Bowels did move last p.m. which she describes as soft and brown. Discussed removal of Olmedo catheter and she is in agreement and use bedside commode. Exam Vital signs and Labs for Last 24 Hours: Temp Pulse Resp BP Pulse Ox 98.0 F 58 L 18 151/49 99 07/07/18 07:27 07/07/18 07:27 07/07/18 07:27 07/07/18 07:27 07/07/18 07:27 I & O for Last 24 hours: Intake & Output 07/04/18 07/05/18 07/06/18 07/07/18 11:59 11:59 11:59 11:59 Intake Total 1200 / 1200 1960 / 1960 1979 / 1979 840 / 840 Output Total 1450 / 1450 1850 / 1850 1501 / 1501 700 / 700 Balance -250 / -250 110 / 110 479 / 479 140 / 140 - Constitutional no acute distress Comments: Frail. Sitting up in the bed eating her breakfast. - *Routine Respiratory Exam Comments: Diminished breath sounds posteriorly. Few crackles. Anterior wheeze. - *Routine Cardiovascular Exam Present: RRR - *Routine Abdominal Exam Present: soft, distended Comments: Bowel sounds present. - *Routine Extremities Exam Present: pulses intact. 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 Current visit: Yes Status: Chronic Category: Surgical Code(s): K41.90 - Unilateral femoral hernia, without obstruction or gangrene, not specified as recurrent (5) Anemia, 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 Category: Medical Code(s): D50.0 - Iron deficiency anemia secondary to blood loss (chronic) (6) Hypothyroidism Current visit: Yes Status: Chronic Qualifiers: Hypothyroidism type: unspecified Qualified Code(s): E03.9 - Hypothyroidism , unspecified Category: Medical Code(s): E03.9 - Hypothyroidism, unspecified (7) Esophageal stricture Current visit: Yes Status: Acute Category: Medical Code(s): K22.2 - Esophageal obstruction (8) Compression fracture of lumbosacral spine Current visit: Yes Status: Acute Category: Medical Code(s): S32.000A - Wedge compression fracture of unspecified lumbar vertebra, initial encounter for closed fracture (9) Abdominal distention Current visit: Yes Status: Acute Category: Medical Code(s): R14.0 - Abdominal distension (gaseous) (10) Chronic bronchitis Current visit: Yes Status: Acute Category: Medical Code(s): J42 - Unspecified chronic bronchitis - Assessment and plan all Dx Assessment and Plan for all problems:: Will remove Olmedo catheter. Patient to use bedside commode. Patient states she will either go home or go to [place]. We will continue with current care.
--- NOTE | 2018-07-07 18:14 | Progress Note ---
Internal Medicine - PN: Subj *Date: 07/07/18 *Time: 18:11 Interval history: Nuclear scan does NOT support metastatic disease. Increased uptake at T12 site of compression fracture. Left kidney appears nonfunctioning. Exam Vital signs and Labs for Last 24 Hours: Temp Pulse Resp BP Pulse Ox 98.1 F 55 L 18 140/42 93 L 07/07/18 15:35 07/07/18 15:35 07/07/18 15:35 07/07/18 15:35 07/07/18 15:35 I & O for Last 24 hours: Intake & Output 07/05/18 07/06/18 07/07/18 07/08/18 11:59 11:59 11:59 11:59 Intake Total 1960 / 1960 1979 / 1979 840 / 840 960 / 960 Output Total 1850 / 1850 1501 / 1501 700 / 700 500 / 500 Balance 110 / 110 479 / 479 140 / 140 460 / 460 Assessment and Plan (1) Upper GI bleed Current visit: Yes Status: Acute Category: Medical Code(s): K92.2 - Gastrointestinal hemorrhage, unspecified (2) Elevated liver enzymes Current visit: Yes Status: Acute Category: Medical Code(s): R74.8 - Abnormal levels of other serum enzymes (3) Liver mass, 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 Category: Medical Code(s): R16.0 - Hepatomegaly, not elsewhere classified (4) Left femoral hernia without obstruction or gangrene Current visit: Yes Status: Chronic Category: Surgical Code(s): K41.90 - Unilateral femoral hernia, without obstruction or gangrene, not specified as recurrent (5) Anemia, 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 Category: Medical Code(s): D50.0 - Iron deficiency anemia secondary to blood loss (chronic) (6) Hypothyroidism Current visit: Yes Status: Chronic Qualifiers: Hypothyroidism type: unspecified Qualified Code(s): E03.9 - Hypothyroidism , unspecified Category: Medical Code(s): E03.9 - Hypothyroidism, unspecified (7) Esophageal stricture Current visit: Yes Status: Acute Category: Medical Code(s): K22.2 - Esophageal obstruction (8) Compression fracture of lumbosacral spine Current visit: Yes Status: Acute Category: Medical Code(s): S32.000A - Wedge compression fracture of unspecified lumbar vertebra, initial encounter for closed fracture (9) Abdominal distention Current visit: Yes Status: Acute Category: Medical Code(s): R14.0 - Abdominal distension (gaseous) (10) Chronic bronchitis Current visit: Yes Status: Acute Category: Medical Code(s): J42 - Unspecified chronic bronchitis - Assessment and plan all Dx Assessment and Plan for all problems:: Renal US. Would like to see kyphoplasty performed, if possible.
--- NOTE | 2018-07-08 06:58 | Progress Note ---
Subjective Patient reports: no new complaints Exam Vital signs and Labs for Last 24 Hours: Temp Pulse Resp BP Pulse Ox 98.4 F 45 L 18 132/50 98 07/08/18 03:47 07/08/18 06:32 07/08/18 03:47 07/08/18 03:47 07/08/18 06:32 I & O for Last 24 hours: Intake & Output 07/05/18 07/06/18 07/07/18 07/08/18 11:59 11:59 11:59 11:59 Intake Total 1959 / 1959 1979 / 1979 840 / 840 960 / 960 Output Total 1850 / 1850 1501 / 1501 700 / 700 500 / 500 Balance 110 / 110 479 / 479 140 / 140 460 / 460 - Constitutional no acute distress - *Routine Respiratory Exam Absent: respiratory distress - *Routine Abdominal Exam Present: soft Progress Note: A&P (1) Upper GI bleed Status: Acute Current Visit: Yes (2) Elevated liver enzymes Status: Acute Current Visit: Yes (3) Liver mass, left lobe Status: Chronic Current Visit: Yes (4) Left femoral hernia without obstruction or gangrene Status: Chronic Current Visit: Yes (5) Anemia, blood loss Status: Chronic Current Visit: Yes (6) Hypothyroidism Status: Chronic Current Visit: Yes (7) Esophageal stricture Status: Acute Current Visit: Yes (8) Compression fracture of lumbosacral spine Status: Acute Current Visit: Yes (9) Abdominal distention Status: Acute Assessment and plan: stable with no sign of obstruction continue current medical management Current Visit: Yes (10) Chronic bronchitis Status: Acute Current Visit: Yes
--- NOTE | 2018-07-08 08:20 | Progress Note ---
Internal Medicine - PN: Subj *Date: 07/08/18 *Time: 08:16 Interval history: Patient feeling well this am. States she is a little more sore in her back d/t moving a lot to go to the bathroom after her catheter was removed. Slept well. Ate well this am. Had a BM yesterday. Would like her nebs discontinued because they cause her to shake. Exam Vital signs and Labs for Last 24 Hours: Temp Pulse Resp BP Pulse Ox 98.4 F 45 L 18 132/50 98 07/08/18 03:47 07/08/18 06:32 07/08/18 03:47 07/08/18 03:47 07/08/18 06:32 I & O for Last 24 hours: Intake & Output 07/05/18 07/06/18 07/07/18 07/08/18 11:59 11:59 11:59 11:59 Intake Total 1960 / 1960 1980 / 1979 840 / 840 960 / 960 Output Total 1850 / 1850 1501 / 1501 700 / 700 500 / 500 Balance 110 / 110 479 / 479 140 / 140 460 / 460 - Constitutional no acute distress - *Routine Respiratory Exam Present: decreased breath sounds - *Routine Cardiovascular Exam Present: RRR - *Routine Abdominal Exam Present: soft, normoactive bowel sounds. Absent: tenderness - *Routine Extremities Exam Absent: edema Assessment and Plan (1) Upper GI bleed Current visit: Yes Status: Acute Category: Medical Code(s): K92.2 - Gastrointestinal hemorrhage, unspecified (2) Elevated liver enzymes Current visit: Yes Status: Acute Category: Medical Code(s): R74.8 - Abnormal levels of other serum enzymes (3) Liver mass, 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 Category: Medical Code(s): R16.0 - Hepatomegaly, not elsewhere classified (4) Left femoral hernia without obstruction or gangrene Current visit: Yes Status: Chronic Category: Surgical Code(s): K41.90 - Unilateral femoral hernia, without obstruction or gangrene, not specified as recurrent (5) Anemia, 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 Category: Medical Code(s): D50.0 - Iron deficiency anemia secondary to blood loss (chronic) (6) Hypothyroidism Current visit: Yes Status: Chronic Qualifiers: Hypothyroidism type: unspecified Qualified Code(s): E03.9 - Hypothyroidism , unspecified Category: Medical Code(s): E03.9 - Hypothyroidism, unspecified (7) Esophageal stricture Current visit: Yes Status: Acute Category: Medical Code(s): K22.2 - Esophageal obstruction (8) Compression fracture of lumbosacral spine Current visit: Yes Status: Acute Category: Medical Code(s): S32.000A - Wedge compression fracture of unspecified lumbar vertebra, initial encounter for closed fracture (9) Abdominal distention Current visit: Yes Status: Acute Category: Medical Code(s): R14.0 - Abdominal distension (gaseous) (10) Chronic bronchitis Current visit: Yes Status: Acute Category: Medical Code(s): J42 - Unspecified chronic bronchitis - Assessment and plan all Dx Assessment and Plan for all problems:: Will discontinue nebs. Will continue current treatment. Awaiting renal U/S.
[2018-07-08 10:44] LABS: Basophils % 0.1 % (0.1-2.0); Eosinophils % 0.2 % (0.1-12.0); Hematocrit 41.4 % (37.0-47.0); Hemoglobin 13.3 g/dL (12.2-16.2); Mean Corpuscular HGB Conc 32.2 g/dL (31.8-35.4); Mean Corpuscular Hemoglobin 30.3 pg (27.0-31.2); Mean Platelet Volume 7.1 fl (7.4-10.4); Monocytes # 0.7 K/mm3 (0.1-1.0); Monocytes % 5.2 % (1.7-9.3); Neutrophils # 12.2 K/mm3 (1.8-7.8); Neutrophils % 87.5 % (37.0-80.0); Platelet Count 297 K/mm3 (142-424); Red Cell Distribution Width 14.7 % (11.5-17.5); White Blood Count 13.9 K/mm3 (4.8-10.8)
[2018-07-08 10:57] LABS: Albumin/Globulin Ratio 0.8 (1.1-1.8); Anion Gap 11.2 mEq/L (5-15); Bilirubin,Total 0.3 mg/dL (0.2-1.0); Calcium 9.2 mg/dL (8.5-10.1); Globulin 3.6 gm/dl (1.3-3.2); Potassium 4.2 mmoL/L (3.5-5.1); Total Protein,Serum 6.6 gm/dL (6.4-8.2)
[2018-07-08 11:34] LABS: Lymphocytes % 4 % (10-50); Monocytes % 10 % (2-9); Neutrophils % 86 % (42-76); Total Cells Counted 100
[2018-07-08 11:41] LABS: Ovalocytes 1+
--- NOTE | 2018-07-08 12:05 | Discharge Summary ---
General - General Admission date:: 06/30/18 Discharge date: 07/08/18 HPI HPI: Ms. Castillo is an 88yo female with a hx of COPD and a compression fracture. She states she has had generalized weakness and dizziness along with near syncope upon standing. She has been constipated up until the past few days when she began having numerous BM's. This am, she had a very dark and sticky BM accompanied by epigastric pain. She was brought to the ER for evaluation and her stool was positive for blood. She is not on any antiplatelet except for a baby aspirin a day. She had a barium swallow done a couple of weeks ago because of trouble swallowing, at that time she was not having black bowel movements. She is on iron, but has not taken it for couple of days. She was admitted and surgery was consulted. Hospital Course Hospital Course: The patient's chest x-ray showed a possible right upper lobe pneumonia. She had an abdominal CT showing biliary dilatation and a wedge compression fracture at L3 and L1. She did have a right upper quadrant ultrasound showing a thickened gallbladder but no gallstones were evident. Radiology felt the abnormality noted on CT was likely due to periportal edema. She was seen in consultation by Dr. Fernández who felt she would need to be managed conservatively. He started her on a PPI and Carafate and ordered an upper GI with small bowel follow-through. This was normal and showed only small bilateral inguinal hernias. Dr. Fernández slowly advanced the patient's diet. She began having constipation and had to receive enemas and stool softners. She had an x-ray showing an ileus. She was able to have bowel movements after some enemas and stool softners. Her H&H did drop and she had to receive 2 units of packed red blood cells. Dr. Christensen was consulted for possible kyphoplasty. He recommended a brace for her back and an MRI of the lumbar spine. The MRI showed acute wedge compression changes at T12, L1, and L3. She tentatively has a kyphoplasty scheduled for July 12. The patient's sputum became thick and green and a repeat chest x-ray showed continued pneumonia. She was started on oral Cefdinir. She had a repeat chest x-ray and this showed no pneumonia but a right upper lobe nodule. Radiology recommended a CT scan. The CT showed a right upper lobe nodule concerning for neoplasm. She had a bone scan to rule out metastatic disease as the cause of her compression fractures. The bone scan did not show any metastatic disease, but it did show a nonfunctioning left kidney. An ultrasound of the kidney was ordered. The patient was started on some prednisone and her thyroid medication was adjusted due to an elevated TSH. Her labs improved as did her symptoms. She is stable to be discharged home with home health and will f/u with Dr. Rodriguez. Objective Vital signs: Temp Pulse Resp BP Pulse Ox 98.7 F 54 L 20 131/69 99 07/08/18 08:00 07/08/18 08:00 07/08/18 08:00 07/08/18 08:00 07/08/18 08:00 Narrative: - Constitutional no acute distress - *Routine HEENT Exam Head: Present: normocephalic, atraumatic Eye: Present: EOMI, PERRL ENT: Present: mucous membranes dry - *Routine Neck Exam Present: supple, full ROM - *Routine Respiratory Exam Present: wheezes. Absent: crackles - *Routine Cardiovascular Exam Present: RRR - *Routine Abdominal Exam Present: soft, normoactive bowel sounds, tenderness (epigastric area) - *Routine Extremities Exam Absent: edema - *Routine Skin Exam Present: intact - *Routine Neurological Exam Present: alert, oriented X3 Results Labs on day of discharge: Labs from last 24 hours 07/08/18 07/08/18 10:24 10:24 WBC 13.9 H RBC 4.40 Hgb 13.3 Hct 41.4 MCV 94.0 MCH 30.3 MCHC 32.2 RDW 14.7 Plt Count 297 MPV 7.1 L Neut % (Auto) 87.5 H Lymph % (Auto) 7.0 L Bailey % (Auto) 5.2 Eos % (Auto) 0.2 Baso % (Auto) 0.1 Neut # (Auto) 12.2 H Lymph # (Auto) 1.0 Bailey # (Auto) 0.7 Eos # (Auto) 0.0 Baso # (Auto) 0.0 Total Counted 100 Neutrophils % (Manual) 86 H Lymphocytes % (Manual) 4 L Monocytes % (Manual) 10 H Platelet Estimate Normal Ovalocytes 1+ Sodium 134 L Potassium 4.2 Chloride 96 L Carbon Dioxide 31 Anion Gap 11.2 BUN 18 Creatinine 1.21 H Estimated Creat Clear 18 Estimated GFR 42 L Est GFR ( Amer) 51 L Glucose 108 H Calcium 9.2 Total Bilirubin 0.3 AST 25 ALT 122 H Alkaline Phosphatase 113 Total Protein 6.6 D Albumin 3.0 L Globulin 3.6 H Albumin/Globulin Ratio 0.8 L DS: Diagnosis - Discharge Diagnosis (1) Upper GI bleed Status: Acute (2) Elevated liver enzymes Status: Acute (3) Liver mass, left lobe Status: Chronic (4) Left femoral hernia without obstruction or gangrene Status: Chronic (5) Anemia, blood loss Status: Chronic (6) Hypothyroidism Status: Chronic (7) Esophageal stricture Status: Acute (8) Compression fracture of lumbosacral spine Status: Acute (9) Abdominal distention Status: Acute (10) Chronic bronchitis Status: Acute (11) Body mass index (BMI) less than 16.5 Status: Acute (12) Compression fracture of L3 lumbar vertebra Status: Acute Discharge Plan - Patient Discharge Instructions ACTIVITY: Limited activity DIET: continue same diet Patient Instructions: Gastrointestinal Bleeding - Follow up Plan Follow up with: Murali Fernández MD [Staff Physician] - 1 week (Scheduled for Outpatient kyphoplasty by Dr. Christensen 07/12/2018. Please confirm. Discharge from [place] that day.) Disposition: Home, Self-Retirement Medications: Home Medications Medication Instructions Recorded Confirmed Type Aspirin [Aspirin 81mg chewable 81 mg PO DAILY 06/30/18 07/01/18 History tab] Bifidobacterium Infantis [Align] 4 mg PO WEEKLY 06/30/18 07/01/18 History Bisoprolol Fumarate [Zebeta 5mg 5 mg PO DAILY 06/30/18 07/01/18 History tablet] Chlorhexidine Gluconate [Peridex] 5 ml MISCELLANE NEEDED PRN 06/30/18 History Cholecalciferol (Vitamin D3) 1,000 unit PO DAILY 06/30/18 07/01/18 History [Vitamin D3 1,000 Unit Cap] Ferrous Gluconate [Ferrous 324 mg PO DAILY 06/30/18 07/01/18 History Gluconate 324mg Tab] Furosemide [Furosemide 40MG tAB] 80 mg PO HS 06/30/18 07/01/18 History Furosemide [Lasix 40mg tablet] 40 mg PO DAILY 06/30/18 07/01/18 History Isosorbide Mononitrate [Imdur 30mg 60 mg PO DAILY 06/30/18 07/01/18 History ER tablet] Levalbuterol HCl [Levalbuterol 1.25 mg IH TID 06/30/18 07/01/18 History Concentrate] Losartan Potassium 25 mg PO DAILY 06/30/18 07/01/18 History Magnesium Oxide [Mag-Ox 400mg Tab] 400 mg PO HS 06/30/18 07/01/18 History Nitroglycerin 0.4 mg SL NEEDED PRN 06/30/18 07/01/18 History Polyethylene Glycol 3350 [Gavilax] 17 gm PO DAILY 06/30/18 07/01/18 History Potassium Chloride [Klor-Con 20 meq PO DAILY 06/30/18 07/01/18 History Sprinkle 10mEq] Spironolactone 25 mg PO DAILY 06/30/18 07/01/18 History Umeclidinium [place] [Incruse 1 puff IH DAILY 06/30/18 07/01/18 History Ellipta] dilTIAZem HCl [Diltiazem 240mg 240 mg PO DAILY 06/30/18 07/01/18 History 24Hr ER Cap] Tizanidine HCl 2 mg PO Q8HP PRN 07/01/18 07/01/18 History Prescriptions/Medication Reconciliation: New Cefdinir [Omnicef 300mg Capsule] 300 mg PO BID #14 cap Levothyroxine Sodium [Synthroid 100mcg (0.1mg) tablet] 100 mcg PO DAILYDM # 30 tab Lidocaine [Lidoderm 5% transdermal patch] 1 each TP Q24H #30 adh..patch Metoclopramide HCl [Reglan 5mg Tablet] 2.5 mg PO AC #90 tab Sucralfate [Carafate 1gm/10mL Susp Udc] 1 gm PO ACHS #120 gm Continue Furosemide [Lasix 40mg tablet] 40 mg PO DAILY dilTIAZem HCl [Diltiazem 240mg 24Hr ER Cap] 240 mg PO DAILY Cholecalciferol (Vitamin D3) [Vitamin D3 1,000 Unit Cap] 1,000 unit PO DAILY Aspirin [Aspirin 81mg chewable tab] 81 mg PO DAILY Umeclidinium [place] [Incruse Ellipta] 1 puff IH DAILY Spironolactone 25 mg PO DAILY Nitroglycerin 0.4 mg SL NEEDED PRN PRN Reason: Angina Magnesium Oxide [Mag-Ox 400mg Tab] 400 mg PO HS Losartan Potassium 25 mg PO DAILY Levalbuterol HCl [Levalbuterol Concentrate] 1.25 mg IH TID Ferrous Gluconate [Ferrous Gluconate 324mg Tab] 324 mg PO DAILY Chlorhexidine Gluconate [Peridex] 5 ml MISCELLANE NEEDED PRN PRN Reason: GINGIVITIS Bisoprolol Fumarate [Zebeta 5mg tablet] 5 mg PO DAILY Bifidobacterium Infantis [Align] 4 mg PO WEEKLY Isosorbide Mononitrate [Imdur 30mg ER tablet] 60 mg PO DAILY Tizanidine HCl 2 mg PO Q8HP PRN PRN Reason: MUSCLE SPASMS Potassium Chloride [Klor-Con Sprinkle 10mEq] 20 meq PO DAILY Polyethylene Glycol 3350 [Gavilax] 17 gm PO DAILY Furosemide [Furosemide 40MG tAB] 80 mg PO HS Discontinued Hyoscyamine Sulfate 0.125 mg PO QID metroNIDAZOLE [Metronidazole] 45 gm TP DAILY Metoclopramide HCl [Metoclopramide 10mg Tablet] 10 mg PO AC Loratadine [Claritin 10mg Tablet] 10 mg PO DAILY Hydrocortisone 10 mg PO DAILY Levothyroxine Sodium [Levothyroxine 75mcg (0.075mg) Tab] 37.5 mcg PO Q48H Albuterol Sulfate [Albuterol HFA Inhaler] 2 puffs PO QIDP PRN PRN Reason: Shortness Of Breath Levothyroxine Sodium [Levothyroxine 75mcg (0.075mg) Tab] 75 mcg PO Q48H
== END 2018-07-08 17:13 | disposition home or self-care (01) ==
LOC: ER 09:22 → 2ND 09:22 → OBSVTOIN 13:52 → 2ND 13:53
PROVIDERS: ADMIT Family Medicine; ATTEND Family Medicine

== ENCOUNTER 2019-06-21 12:13 | Inpatient (IN) ==
--- NOTE | 2019-06-21 12:28 | Emergency Department Note ---
ED Disposition Clinical Impression: Community acquired pneumonia Qualifiers: Laterality: left Lung location: lower lobe of lung Qualified Code(s): J18.1 - Lobar pneumonia, unspecified organism COPD (chronic obstructive pulmonary disease) Qualifiers: COPD type: unspecified COPD Qualified Code(s): J44.9 - Chronic obstructive pulmonary disease, unspecified Disposition: Admitted as Observation Condition on Discharge: Fair Referrals: Ariadne Rodriguez MD [Primary Care Provider] - - Critical Care Critical Care Time: No Attestation: On , the high probability of a clinically significant, sudden or life threatening deterioration of the following system(s) required my full and direct attention, intervention and personal management. The time I documented below is in addition to time spent performing reported procedures but includes the following listed in this critical care notation. Medical Decision Making - Raymond Inquiry Pt receiving controlled substance: No Vital Signs: 06/21/19 12:13 06/21/19 13:39 Temperature 98.7 F Temperature Source Oral Pulse Rate [Right Radial] 70 67 Respiratory Rate 22 20 Blood Pressure [Right Arm] 132/67 146/67 H Blood Pressure Mean [Right Arm] 88 93 Blood Pressure Source [Right Arm] Automatic Cuff Automatic Cuff Blood Pressure Position [Right Arm] Sitting Sitting 02 Sat by Pulse Oximetry 94 L 97 Oxygen Delivery Method Nasal Cannula Nasal Cannula Oxygen Flow Rate (LPM) 4 2 - Lab Data Lab Results 06/21/19 12:20: WBC 6.7, RBC 3.38 L, Hgb 10.2 L, Hct 33.2 L, MCV 98.3, MCH 30.2, MCHC 30.7 L, RDW 14.8, Plt Count 205, MPV 9.1, Neut % (Auto) 69.9, Lymph % (Auto) 20.6, [place] % (Auto) 8.5, Eos % (Auto) 0.6, Baso % (Auto) 0.4, Neut # (Auto) 4.7, Lymph # (Auto) 1.4, [place] # (Auto) 0.6, Eos # (Auto) 0.0, Baso # (Auto) 0.0 06/21/19 12:20: Sodium 137, Potassium 4.3, Chloride 101, Carbon Dioxide 29, Anion Gap 11.3, BUN 21 H, Creatinine 1.13 H, Estimated Creat Clear 23, Estimated GFR 46 L, Est GFR ( Amer) 55 L, Glucose 107 H, Calcium 8.9, Total Bilirubin 0.4, AST 15, ALT 18, Alkaline Phosphatase 91, Total Protein 7.2, Albumin 3.2 L, Globulin 4.0 H, Albumin/Globulin Ratio 0.8 L 06/21/19 12:20: Lactate 0.9 06/21/19 12:20: Troponin I < 0.02 06/21/19 12:20: B-Natriuretic Peptide 355 H 06/21/19 12:20: Lipase 317 06/21/19 12:20: TSH 0.15 L D 06/21/19 13:55: Urine Color Yellow, Urine Appearance Clear, Urine pH 7.0, Ur Specific [place] 1.010, Urine Protein Negative, Urine Glucose (UA) Negative, Urine Ketones Negative, Urine Blood Negative, Urine Nitrate Negative, Urine Bilirubin Negative, Urine Urobilinogen 0.2, Ur Leukocyte Esterase Negative, Urine WBC Occasional, Ur Squamous Epith Cells Occasional, Urine Bacteria Trace Result diagrams: 06/21/19 12:20 06/21/19 12:20 Orders (Tests/Meds): ED MEDICATIONS Generic Name Dose Route Start Last Admin Trade Name Freq PRN Reason Stop Dose Admin Azithromycin 500 mg/ Sodium 250 mls @ 250 mls/hr 06/21/19 14:45 Chloride IV 07/05/19 14:44 Q24H ANNIE Protocol Ceftriaxone Sodium 1 gm/ 50 mls @ 100 mls/hr 06/21/19 14:45 Sodium Chloride IV 07/05/19 14:44 Q24H ANNIE Protocol Discontinued Medications Generic Name Dose Route Start Last Admin Trade Name Freq PRN Reason Stop Dose Admin Methylprednisolone Sodium Succinate 125 mg 06/21/19 12:29 06/21/19 12:40 Solu-Medrol 125mg/2ml Vial IV 06/21/19 12:30 125 mg ONCE ONE Administration - Radiology Data #1 Image(s): Chest Image Reviewed: Yes I reviewed the patient's radiology image, Yes I have reviewed radiologist's interpretation FINDINGS: Mild cardiomegaly without failure. COPD with chronic interstitial changes. Patchy densities present in the right upper lobe similar to the previous exam and similar to previous CT scan of 07/05/2018. No lobar consolidation or collapse. No acute bony findings. Chronic pleural thickening in the left lung base. IMPRESSION: COPD with chronic changes. No change in the pleural thickening in the left lung base and the spiculated opacity in the right upper lobe. Dictated By: John Marcial MD 06/21/19 1249 - CT Data CT Scan: Abdomen, Pelvis Time Received: 14:[address] Reviewed: Yes: I have viewed the radiologist's interpretation Findings Narrative: FINDINGS: Lung bases: Cardiomegaly with mitral valve annular calcification. Chronic volume loss in right middle lobe and right lower lobe. Consolidation is present in the left lung base posteriorly a small left-sided effusion. The gallbladder, spleen, adrenal glands, and pancreas show no acute finding. There is atrophy of the left kidney. 18 mm cyst is present involving the upper pole the right kidney medially. There is a soft tissue mass projecting off the lateral aspect of left lobe of the liver measuring 4.5 cm unchanged No intestinal obstruction or free air. No evidence of appendicitis or diverticulitis. The appendix is not identified. There are multiple unopacified bowel loops present within the abdomen/pelvis which could obscure or mimic pathology. If symptoms persists, consider repeating exam with IV and oral contrast administration. No pelvic mass abnormal fluid collection or focal inflammatory change. There are degenerative changes in the lumbar spine. There has been prior kyphoplasty at T12. Wedge compression changes involve L1 with loss of height centrally of 50%. Mild wedging of L3 and L4 unchanged. There is a small left inguinal hernia containing a small loop of small bowel IMPRESSION: 1. Left lower lobe pneumonia/consolidation with small effusion with chronic changes in the right middle lobe and right lower lobe. 2. Otherwise stable CT abdomen pelvis with no significant change with multiple Nonemergent nonacute findings as described above Dictated By: John Marcial MD 06/21/19 1415 - ECG Data Tracing #1 EKG interpreted by Mansoor Manzanares MD: Rhythm: sinus Rate: 75 [place]: Left Ectopy: none Conduction: normal ST Segment Changes: none T Wave Changes: none Q Waves: Septal No evidence of acute ischemia or injury Baseline artifact and wander present, but I consider the EKG adequate for accurate interpretation. - Physician Consults Physician Consulted: Michael Time: 14:48 Reason -: Admission Comment/Response: Agrees to admit the patient to the hospital. We discussed the patient's clinical information, including history, exam, laboratory and radiology results and ED course. Per hospital procedure, I will write temporary bridge inpatient orders on the patient. Specific orders requested by the admitting physician: Continue Rocephin and Zithromax. Solu-Medrol 60 mg IV every 8 hours. Decrease thyroid dose to 88 mcg. Xopenex low-dose nebulizer treatments. General Adult HPI - General Chief complaint: Shortness of Breath/Dyspnea Stated complaint: SOA, cough Time Seen by Provider: 06/21/19 12:28 Mode of Arrival: EMS Limitations: No Limitations Description of Symptoms (Recalled from ER Triage Doc. by RN): Pt c/o increased SOA that x3 days. Pt reports productive cough. Pt has hx of COPD, oxygen dependent at 2L per [place]. - History of Present Illness HPI narrative: States she started getting sick on Thursday. Has multiple complaints. Says that she has felt extremely weak, feels like she is going to pass out. She had some nausea and vomiting on Thursday. Her stool has been thin. She has had abdominal pain off and on since Thursday 3 days ago. She has had "pains in my heart". States the abdominal pain is more to the right side. She has had shortness of breath. She says that she has a chronic cough. She has COPD, former smoker. She is on oxygen at home. She says that she has a nebulizer and is supposed to take breathing treatments, but stopped taking them because she feels like they choke her, make it hard to swallow. After stopping the nebulizer treatments she says the choking went away. Prior history of appendectomy, ovarian cyst removal, uterine suspension, surgery for hemorrhage. Last meal was a pop tart for breakfast at 8 AM. - Related Data Home Medications Medication Instructions Recorded Confirmed Aspirin [Aspirin 81mg chewable 81 mg PO DAILY 06/30/18 06/21/19 tab] Bifidobacterium Infantis [Align] 4 mg PO DAILY 06/30/18 06/21/19 Bisoprolol Fumarate [Zebeta 5mg 2.5 mg PO DAILY 06/30/18 06/21/19 tablet] Ferrous Gluconate [Ferrous 324 mg PO DAILY 06/30/18 06/21/19 Gluconate 324mg Tab] Furosemide [Lasix 40mg tablet] 40 mg PO DAILY 06/30/18 06/21/19 Isosorbide Mononitrate [Imdur 30mg 30 mg PO BID 06/30/18 06/21/19 ER tablet] Losartan Potassium 25 mg PO DAILY 06/30/18 06/21/19 Magnesium Oxide [Mag-Ox 400mg Tab] 400 mg PO HS 06/30/18 06/21/19 Nitroglycerin 0.4 mg SL NEEDED PRN 06/30/18 06/21/19 Polyethylene Glycol 3350 [Gavilax] 17 gm PO DAILY 06/30/18 06/21/19 Potassium Chloride [Klor-Con 20 meq PO DAILY 06/30/18 06/21/19 Sprinkle 10mEq] Spironolactone [Spironolactone 25 mg PO DAILY 06/30/18 06/21/19 25mg Tablet] dilTIAZem HCl [Diltiazem 240mg 240 mg PO DAILY 06/30/18 06/21/19 24Hr ER Cap] Levothyroxine Sodium [Synthroid 100 mcg PO DAILYDM 07/16/18 06/21/19 100mcg (0.1mg) tablet] Metoclopramide HCl [Reglan 5mg 2.5 mg PO AC 07/16/18 06/21/19 Tablet] Sucralfate [Carafate 1gm/10mL 1 gm PO ACHS 07/16/18 06/21/19 Susp] Albuterol Sulfate [Albuterol HFA 1 puff IH Q4HP PRN 07/20/18 06/21/19 Inhaler] Fluticasone/Umeclidin/Vilanter 1 each IH DAILY 07/20/18 06/21/19 [Trelegy Ellipta 100-62.5-25] Sennosides/Docusate Sodium [Stool 1 each PO DAILY 07/20/18 06/21/19 Softener-Laxative Tablet] Roflumilast [Daliresp] 250 mcg PO DAILY 06/21/19 06/21/19 Allergies Allergy/AdvReac Type Severity Reaction Status Date / Time diatrizoate sodium Allergy Severe S-SWELLS-OR Verified 07/20/18 13:25 [From HYPAQUE] AL/THROAT Influenza Virus Vaccines Allergy Intermediate I-ITCHING Verified 07/20/18 13:25 [INFLUENZA VIRUS VACCINES] levofloxacin [From LEVAQUIN] Allergy Intermediate I-RASH Verified 07/20/18 13:25 codeine [CODEINE] Allergy Mild "HEADACHE" Verified 07/20/18 13:25 Sulfa (Sulfonamide Allergy Mild NA-NAUSEA/V Verified 07/20/18 13:25 Antibiotics) OMITING [SULFA (SULFONAMIDE ANTIBIOTICS)] mometasone furoate Allergy Unknown Verified 07/20/18 13:25 [From NASONEX] [facility] History - Hepatitis A Screen Drug use history?: No High risk sexual behaviors?: No History of sexually transmitted infection?: No Currently employed?: No Childcare worker?: No Do you have indoor plumbing?: Yes Do you have electricity?: Yes Attestation statement:: This patient has been screened for Hepatitis A risk factors. Medical History: Reports:: Atrial Fibrillation, Chronic Obstructive Pulmonary Disease (COPD), Hypertension, Transient Ischemic Attacks (TIA) Denies:: Cancer, Diabetes Mellitus Type 1, Diabetes Mellitus Type 2, Internal Pacemaker, MRSA, Seizures Other Medical History: Reports: Arthritis, Hypothyroidism, Thyroid Disease, Other (Angina, Kyphosis). Denies: Blood Transfusion Reaction Other Surgeries: No: Pacemaker Amputation: No Fractures: Yes (COMPRESSION FX BACK) Comment: Right ovarian cyst, Post Hemorrhage, Breast bx - Social History Smoking Status: Former smoker Alcohol Intake: never Occupational Status: retired Housing: house Household Members: family Family Hx:: Coronary Artery Disease, Diabetes ROS Obtained: Yes All systems reviewed & no additional complaints - Constitutional Constitutional: Reports fatigue, Denies fever(s), Reports weakness - Cardiovascular Cardiovascular: Reports chest pain - Respiratory Respiratory: Yes cough, Yes dyspnea - Gastrointestinal Gastrointestingal: Reports: abdominal pain, diarrhea, vomiting Physical Exam - General General appearance: alert, in no apparent distress - Head Head exam: atraumatic, normocephalic - Eye Eye exam: Present: normal appearance, EOMI - ENT ENT exam: Present: mucous membranes moist - Neck Neck exam: Present: normal inspection, trachea midline - Chest Chest inspection: Present: normal inspection, symmetric chest wall rise - Respiratory Respiratory exam: Present: normal lung sounds bilaterally. Absent: respiratory distress - Cardiovascular Cardiovascular exam: Present: regular rate, normal rhythm, normal heart sounds - Abdominal Exam Abdominal exam: Present: soft, tenderness, normal bowel sounds. Absent: guarding, rebound, rigidity Abdominal tenderness: Present: RUQ, RLQ - Extremities Exam Extremities exam: Present: normal inspection. Absent: pedal edema, calf tenderness - Neurological Exam Neurological exam: Present: alert, oriented X3 - Psychiatric Psychiatric exam: Present: normal affect, normal mood - Skin Skin exam: Present: warm, dry
[2019-06-21 12:42] LABS: Basophils % 0.4 % (0.1-2.0); Eosinophils % 0.6 % (0.1-12.0); Hematocrit 33.2 % (37.0-47.0); Hemoglobin 10.2 g/dL (12.2-16.2); Lymphocytes # 1.4 K/mm3 (0.7-4.5); Lymphocytes % 20.6 % (10-50); Mean Corpuscular HGB Conc 30.7 g/dL (31.8-35.4); Mean Corpuscular Volume 98.3 fl (81-99); Mean Platelet Volume 9.1 fl (7.4-10.4); Monocytes # 0.6 K/mm3 (0.1-1.0); Monocytes % 8.5 % (1.7-9.3); Neutrophils # 4.7 K/mm3 (1.8-7.8); Neutrophils % 69.9 % (37.0-80.0); Platelet Count 205 K/mm3 (142-424); Red Blood Count 3.38 M/mm3 (4.20-5.40); Red Cell Distribution Width 14.8 % (11.5-17.5); White Blood Count 6.7 K/mm3 (4.8-10.8)
[2019-06-21 13:22] LABS: Albumin Level 3.2 gm/dL (3.4-5.0); Albumin/Globulin Ratio 0.8 (1.1-1.8); Anion Gap 11.3 mEq/L (5-15); Bilirubin,Total 0.4 mg/dL (0.2-1.0); Calcium 8.9 mg/dL (8.5-10.1); Total Protein,Serum 7.2 gm/dL (6.4-8.2)
[2019-06-21 14:06] LABS: Microscopic, Urine URINE MICROSCOPIC (MICROSCOPIC)
[2019-06-21 14:12] LABS: Appearance,Urine CLEAR (Clear); Bilirubin,Urine Negative (Negative); Blood, Urine Negative (Negative); Color,Urine YELLOW (Yellow); Glucose,Urine (UA) Negative (Negative); Ketones,Urine Negative (Negative); Leukocyte Esterase,Urine Negative (Negative); Protein,Urine Negative (Negative); Urobilinogen,Urine 0.2 EU/dl (0.2)
[2019-06-21 14:20] LABS: Bacteria,Urine Trace /lpf; Squamous Epithelial Cell,Urine Occasional #/hpf (0-5); WBC,Urine Occasional #/hpf (0-3)
--- NOTE | 2019-06-21 16:00 | Pharmacy Consult Notes ---
[facility] Pharmacy VTE Monitoring - Patient Demographics Admission date: 06/21/19 Report Date: 06/21/19 Time: 15:59 Allergies/Adverse Reactions: Patient Allergies diatrizoate sodium [From HYPAQUE] Allergy (Severe, Verified 07/20/18 13:25) [id number]/THROAT Influenza Virus Vaccines [INFLUENZA VIRUS VACCINES] Allergy (Intermediate, Verified 07/20/18 13:25) I-ITCHING levofloxacin [From LEVAQUIN] Allergy (Intermediate, Verified 07/20/18 13:25) I-RASH codeine [CODEINE] Allergy (Mild, Verified 07/20/18 13:25) "HEADACHE" Sulfa (Sulfonamide Antibiotics) [SULFA (SULFONAMIDE ANTIBIOTICS)] Allergy (Mild, Verified 07/20/18 13:25) NA-NAUSEA/VOMITING mometasone furoate [From NASONEX] Allergy (Unknown, Verified 07/20/18 13:25) Height: 1.52 m Weight: 41.73 kg Patient Problems: Current Active Problems (Updated 06/21/19 @ 14:49 by Mansoor Manzanares MD) COPD (chronic obstructive pulmonary disease) (Acute) Community acquired pneumonia (Acute) - VTE Risk Labs: VTE Related Lab Results Hgb 10.2 g/dL (12.2-16.2) L 06/21/19 12:20 Hct 33.2 % (37.0-47.0) L 06/21/19 12:20 Plt Count 205 K/mm3 (142-424) 06/21/19 12:20 BUN 21 mg/dL (7-18) H 06/21/19 12:20 Creatinine 1.13 mg/dL (0.55-1.02) H 06/21/19 12:20 Estimated Creat Clear 23 mL/min (50-200) 06/21/19 12:20 Was VTE Risk Assessment Performed: Yes Clinical Trial Participant: No - Prophylaxis VTE Prophylaxis Ordered?: Yes Types of VTE Prophylaxis: TEDS Knee High
--- NOTE | 2019-06-21 17:23 | History & Physical Report ---
*Admission Date: 06/21/19 *Chief complaint: Shortness of breath *History of present illness: Ms. Christopher is an 89-year-old female with a history of hypothyroidism, dysrhythmia, COPD on home oxygen, anemia, and ASCVD who presented to [facility] emergency room with progressive shortness of breath. She was seen in the office of [facility] on with the same and was started on Daliresp. She did feel somewhat better after her visit but then again began to experience progressive shortness of breath. She describes an infrequent cough. She has also had some nausea and vomiting and diarrhea. She also states that she has been very weak and dizzy and at times has felt as if she was going to pass out. In the emergency room she was started on Rocephin and Zithromax IV and was given a bolus of Solu-Medrol 125 mg after which she states she did feel better. At the time of this exam patient is sitting up in the bed with her grandson at her bedside eating her dinner. She states she is comfortable except for some anterior chest pressure. [facility] History Medical History: Reports:: Arrhythmia, Atherosclerotic Heart Disease, Atrial Fibrillation, Chronic Obstructive Pulmonary Disease (COPD), Coronary Artery Disease, Gastroesophageal Reflux Disease(GERD), Home Oxygen, Hypertension, Lung Disease, Transient Ischemic Attacks (TIA) Denies:: Cancer, Diabetes Mellitus Type 1, Diabetes Mellitus Type 2, Internal Pacemaker, MRSA, Seizures *Have you ever received a pneumonia vaccine?: No *Have you received a flu vaccine this season?: No Other Medical History: Reports: Anemia, Arthritis, Hypothyroidism, Thyroid Disease, Other (Angina, Kyphosis). Denies: Blood Transfusion Reaction Other Surgeries: No: Pacemaker Amputation: No Fractures: Yes (COMPRESSION FX BACK) Comment: She has had a breast; T12 kyphoplasty for T12 fracture on 07/21/2018; cataract on the left 12/15/2018; cataract on the right 01/05/2019 - *Social History Educational Level: Attended College Smoking Status: Former smoker # Packs/Day (cigarettes): 1 #Yrs smoked (if former smoker): 52 Smoking End Date: 11/23/2000 Alcohol Intake: never *Occupational Status:: retired Housing: house Household Members: family *Travel in the last 8 weeks: None - Psychiatric History Expresses thoughts of harming self/others: None Suicide Plan Description: No Plan Family Hx:: Coronary Artery Disease, Diabetes Review of Systems - Constitutional Reports fatigue, Reports lack of energy, Denies fever(s) - ENT Reports dizziness, Denies ear pain, Denies sore throat - *Cardiovascular Reports chest pain (Anterior chest pressure), Reports shortness of breath - *Respiratory Reports chest congestion, Reports cough (Infrequent), Reports wheezing, Denies coughing up blood - *Gastrointestinal Reports abdominal pain (Soreness), Reports change in bowel habits, Reports loose stools, Reports nausea, Reports vomiting, Denies constipation, Denies vomiting blood, Denies bright, red blood in stools - *Genitourinary Denies difficulty urinating - *Musculoskeletal Reports joint pain (All over) - *Neurologic Reports dizziness, Reports weakness Meds Home Medications Medication Instructions Recorded Confirmed Type Aspirin [Aspirin 81mg chewable 81 mg PO DAILY 06/30/18 06/21/19 History tab] Bifidobacterium Infantis [Align] 4 mg PO DAILY 06/30/18 06/21/19 History Bisoprolol Fumarate [Zebeta 5mg 2.5 mg PO DAILY 06/30/18 06/21/19 History tablet] Ferrous Gluconate [Ferrous 324 mg PO DAILY 06/30/18 06/21/19 History Gluconate 324mg Tab] Furosemide [Lasix 40mg tablet] 40 mg PO DAILY 06/30/18 06/21/19 History Isosorbide Mononitrate [Imdur 30mg 30 mg PO BID 06/30/18 06/21/19 History ER tablet] Losartan Potassium 25 mg PO DAILY 06/30/18 06/21/19 History Magnesium Oxide [Mag-Ox 400mg Tab] 400 mg PO HS 06/30/18 06/21/19 History Nitroglycerin 0.4 mg SL NEEDED PRN 06/30/18 06/21/19 History Polyethylene Glycol 3350 [Gavilax] 17 gm PO DAILY 06/30/18 06/21/19 History Potassium Chloride [Klor-Con 20 meq PO DAILY 06/30/18 06/21/19 History Sprinkle 10mEq] Spironolactone [Spironolactone 25 mg PO DAILY 06/30/18 06/21/19 History 25mg Tablet] dilTIAZem HCl [Diltiazem 240mg 240 mg PO DAILY 06/30/18 06/21/19 History 24Hr ER Cap] Levothyroxine Sodium [Synthroid 100 mcg PO DAILYDM 07/16/18 06/21/19 History 100mcg (0.1mg) tablet] Metoclopramide HCl [Reglan 5mg 2.5 mg PO AC 07/16/18 06/21/19 History Tablet] Sucralfate [Carafate 1gm/10mL 1 gm PO ACHS 07/16/18 06/21/19 History Susp] Albuterol Sulfate [Albuterol HFA 1 puff IH Q4HP PRN 07/20/18 06/21/19 History Inhaler] Fluticasone/Umeclidin/Vilanter 1 each IH DAILY 07/20/18 06/21/19 History [Trelegy Ellipta 100-62.5-25] Sennosides/Docusate Sodium [Stool 1 each PO DAILY 07/20/18 06/21/19 History Softener-Laxative Tablet] Roflumilast [Daliresp] 250 mcg PO DAILY 06/21/19 06/21/19 History Allergies Allergy/AdvReac Type Severity Reaction Status Date / Time diatrizoate sodium Allergy Severe S-SWELLS-OR Verified 07/20/18 13:25 [From HYPAQUE] AL/THROAT Influenza Virus Vaccines Allergy Intermediate I-ITCHING Verified 07/20/18 13:25 [INFLUENZA VIRUS VACCINES] levofloxacin [From LEVAQUIN] Allergy Intermediate I-RASH Verified 07/20/18 13:25 codeine [CODEINE] Allergy Mild "HEADACHE" Verified 07/20/18 13:25 Sulfa (Sulfonamide Allergy Mild NA-NAUSEA/V Verified 07/20/18 13:25 Antibiotics) OMITING [SULFA (SULFONAMIDE ANTIBIOTICS)] mometasone furoate Allergy Unknown Verified 07/20/18 13:25 [From NASONEX] Exam Vital signs and Labs for Last 24 Hours: Temp Pulse Resp BP Pulse Ox 98.1 F 68 28 H 179/67 H 96 06/21/19 16:00 06/21/19 16:00 06/21/19 16:00 06/21/19 16:00 06/21/19 16:00 Laboratory Results - last 24 hr 06/21/19 12:20: WBC 6.7, RBC 3.38 L, Hgb 10.2 L, Hct 33.2 L, MCV 98.3, MCH 30.2, MCHC 30.7 L, RDW 14.8, Plt Count 205, MPV 9.1, Neut % (Auto) 69.9, Lymph % (Auto) 20.6, [place] % (Auto) 8.5, Eos % (Auto) 0.6, Baso % (Auto) 0.4, Neut # (Auto) 4.7, Lymph # (Auto) 1.4, [place] # (Auto) 0.6, Eos # (Auto) 0.0, Baso # (Auto) 0.0 06/21/19 12:20: Sodium 137, Potassium 4.3, Chloride 101, Carbon Dioxide 29, Anion Gap 11.3, BUN 21 H, Creatinine 1.13 H, Estimated Creat Clear 23, Estimated GFR 46 L, Est GFR ( Amer) 55 L, Glucose 107 H, Calcium 8.9, Total Bilirubin 0.4, AST 15, ALT 18, Alkaline Phosphatase 91, Total Protein 7.2, Albumin 3.2 L, Globulin 4.0 H, Albumin/Globulin Ratio 0.8 L 06/21/19 12:20: Lactate 0.9 06/21/19 12:20: Troponin I < 0.02 06/21/19 12:20: B-Natriuretic Peptide 355 H 06/21/19 12:20: Lipase 317 06/21/19 12:20: TSH 0.15 L D 06/21/19 13:55: Urine Color Yellow, Urine Appearance Clear, Urine pH 7.0, Ur Specific [place] 1.010, Urine Protein Negative, Urine Glucose (UA) Negative, Urine Ketones Negative, Urine Blood Negative, Urine Nitrate Negative, Urine Bilirubin Negative, Urine Urobilinogen 0.2, Ur Leukocyte Esterase Negative, Urine WBC Occasional, Ur Squamous Epith Cells Occasional, Urine Bacteria Trace I & O for Last 24 hours: Intake & Output 06/19/19 06/20/19 06/21/19 06/22/19 11:59 11:59 11:59 11:59 Output Total 150 / 150 Balance -150 / -150 Weight 96 lb 10.3 oz Radiology Reports for the Last 24 Hours: Chest x-ray 06/21/2019 IMPRESSION: COPD with chronic changes. No change in the pleural thickening in the left lung base and the spiculated opacity in the right upper lobe. CT of the abdomen and pelvis 06/21/2019 IMPRESSION: 1. Left lower lobe pneumonia/consolidation with small effusion with chronic changes in the right middle lobe and right lower lobe. 2. Otherwise stable CT abdomen pelvis with no significant change with multiple Nonemergent nonacute findings as described above - Constitutional no acute distress Comments: Sitting up in the bed eating her dinner. Appears very comfortable. Talks without dyspnea - *Routine HEENT Exam Head: Present: normocephalic, atraumatic Eye: Present: PERRL. Absent: conjunctival icterus, scleral injection ENT: Present: mucous membranes moist, oropharynx clear - *Routine Neck Exam Present: supple. Absent: carotid bruit, lymphadenopathy, thyromegaly - *Routine Respiratory Exam Comments: Decreased breath sounds on the right; soft expiratory wheeze on the left - *Routine Cardiovascular Exam Present: RRR - *Routine Abdominal Exam Present: soft, normoactive bowel sounds. Absent: tenderness, distended - *Routine Extremities Exam Absent: edema, calf tenderness - *Routine Neurological Exam Present: alert, oriented X3 Assessment and Plan (1) COPD (chronic obstructive pulmonary disease) Current visit: Yes Status: Acute Qualifiers: COPD type: unspecified COPD Qualified Code(s): J44.9 - Chronic obstructive pulmonary disease, unspecified Category: Medical Code(s): J44.9 - Chronic obstructive pulmonary disease, unspecified (2) Community acquired pneumonia Current visit: Yes Status: Acute Qualifiers: Laterality: left Lung location: lower lobe of lung Qualified Code(s): J18.1 - Lobar pneumonia, unspecified organism Category: Medical Code(s): J18.9 - Pneumonia, unspecified organism (3) Hypothyroidism Current visit: No Status: Chronic Qualifiers: Hypothyroidism type: unspecified Qualified Code(s): E03.9 - Hypothyroidism, unspecified Category: Medical Code(s): E03.9 - Hypothyroidism, unspecified (4) Low TSH level Current visit: Yes Status: Acute Category: Medical Code(s): R79.89 - Other specified abnormal findings of blood chemistry - Assessment and plan all Dx Assessment and Plan for all problems:: We will try Xopenex and see how patient tolerates. We will continue IV antibiotics. Thyroid dosage has been decreased.
--- NOTE | 2019-06-21 17:31 | Progress Note ---
Internal Medicine - PN: Subj *Date: 06/21/19 *Time: 17:28 Interval history: See ER record. Patient has not been feeling well for about 2 weeks actually but got worse the past 2 days. She felt more short of breath. She was brought to the emergency room. The CT that was obtained suggested pleural effusion on the left. Exam Vital signs and Labs for Last 24 Hours: Temp Pulse Resp BP Pulse Ox 98.1 F 68 28 H 179/67 H 96 06/21/19 16:00 06/21/19 16:00 06/21/19 16:00 06/21/19 16:00 06/21/19 16:00 Laboratory Results - last 24 hr 06/21/19 12:20: WBC 6.7, RBC 3.38 L, Hgb 10.2 L, Hct 33.2 L, MCV 98.3, MCH 30.2, MCHC 30.7 L, RDW 14.8, Plt Count 205, MPV 9.1, Neut % (Auto) 69.9, Lymph % (Auto) 20.6, [place] % (Auto) 8.5, Eos % (Auto) 0.6, Baso % (Auto) 0.4, Neut # (Auto) 4.7, Lymph # (Auto) 1.4, [place] # (Auto) 0.6, Eos # (Auto) 0.0, Baso # (Auto) 0.0 06/21/19 12:20: Sodium 137, Potassium 4.3, Chloride 101, Carbon Dioxide 29, Anion Gap 11.3, BUN 21 H, Creatinine 1.13 H, Estimated Creat Clear 23, Estimated GFR 46 L, Est GFR ( Amer) 55 L, Glucose 107 H, Calcium 8.9, Total Bilirubin 0.4, AST 15, ALT 18, Alkaline Phosphatase 91, Total Protein 7.2, Albumin 3.2 L, Globulin 4.0 H, Albumin/Globulin Ratio 0.8 L 06/21/19 12:20: Lactate 0.9 06/21/19 12:20: Troponin I < 0.02 06/21/19 12:20: B-Natriuretic Peptide 355 H 06/21/19 12:20: Lipase 317 06/21/19 12:20: TSH 0.15 L D 06/21/19 13:55: Urine Color Yellow, Urine Appearance Clear, Urine pH 7.0, Ur Specific [place] 1.010, Urine Protein Negative, Urine Glucose (UA) Negative, Urine Ketones Negative, Urine Blood Negative, Urine Nitrate Negative, Urine Bilirubin Negative, Urine Urobilinogen 0.2, Ur Leukocyte Esterase Negative, Urine WBC Occasional, Ur Squamous Epith Cells Occasional, Urine Bacteria Trace I & O for Last 24 hours: Intake & Output 06/19/19 06/20/19 06/21/19 06/22/19 11:59 11:59 11:59 11:59 Output Total 150 / 150 Balance -150 / -150 Weight 96 lb 10.3 oz - Constitutional no acute distress - *Routine HEENT Exam Head: Present: normocephalic Eye: Present: PERRL ENT: Present: mucous membranes moist - *Routine Respiratory Exam Comments: I hear rales on the right side at the base. Breath sounds are diminished on the left and there is some transmission of vocal sounds on the left which would be consistent with effusion. - *Routine Abdominal Exam Present: soft. Absent: tenderness - *Routine Extremities Exam Absent: edema - *Routine Neurological Exam Present: alert, oriented X3 Assessment and Plan - Assessment and plan all Dx Assessment and Plan for all problems:: Assessment: 1. Left lower lobe pneumonia. 2. 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 3. Anemia. Plan: See orders. IV antibiotics. We will try Xopenex. She does not tolerate her nebulizers at home very well.
--- NOTE | 2019-06-22 08:20 | Progress Note ---
Internal Medicine - PN: Subj *Date: 06/22/19 *Time: 08:16 Interval history: Patient states she is feeling better this a.m. She slept for a few hours during the night which is the way she sleeps at home. She is eating somewhat better without any nausea, vomiting, and has had no diarrhea since admission. Breathing is better with minimal cough. She is tolerating Xopenex neb treatments. She states Mucinex helps her at home when she has pneumonia. She has been up to the bedside commode and becomes very dyspneic with activity. She is voiding without problems. Exam Vital signs and Labs for Last 24 Hours: Temp Pulse Resp BP Pulse Ox 98.3 F 74 17 155/65 H 96 06/22/19 04:00 06/22/19 04:00 06/22/19 04:00 06/22/19 04:00 06/22/19 04:00 Laboratory Results - last 24 hr 06/21/19 12:20: WBC 6.7, RBC 3.38 L, Hgb 10.2 L, Hct 33.2 L, MCV 98.3, MCH 30.2, MCHC 30.7 L, RDW 14.8, Plt Count 205, MPV 9.1, Neut % (Auto) 69.9, Lymph % (Auto) 20.6, [place] % (Auto) 8.5, Eos % (Auto) 0.6, Baso % (Auto) 0.4, Neut # (Auto) 4.7, Lymph # (Auto) 1.4, [place] # (Auto) 0.6, Eos # (Auto) 0.0, Baso # (Auto) 0.0 06/21/19 12:20: Sodium 137, Potassium 4.3, Chloride 101, Carbon Dioxide 29, Anion Gap 11.3, BUN 21 H, Creatinine 1.13 H, Estimated Creat Clear 23, Estimated GFR 46 L, Est GFR ( Amer) 55 L, Glucose 107 H, Calcium 8.9, Total Bilirubin 0.4, AST 15, ALT 18, Alkaline Phosphatase 91, Total Protein 7.2, Albumin 3.2 L, Globulin 4.0 H, Albumin/Globulin Ratio 0.8 L 06/21/19 12:20: Lactate 0.9 06/21/19 12:20: Troponin I < 0.02 06/21/19 12:20: B-Natriuretic Peptide 355 H 06/21/19 12:20: Lipase 317 06/21/19 12:20: TSH 0.15 L D 06/21/19 13:55: Urine Color Yellow, Urine Appearance Clear, Urine pH 7.0, Ur Specific [place] 1.010, Urine Protein Negative, Urine Glucose (UA) Negative, Urine Ketones Negative, Urine Blood Negative, Urine Nitrate Negative, Urine Bilirubin Negative, Urine Urobilinogen 0.2, Ur Leukocyte Esterase Negative, Urine WBC Occasional, Ur Squamous Epith Cells Occasional, Urine Bacteria Trace I & O for Last 24 hours: Intake & Output 06/19/19 06/20/19 06/21/19 06/22/19 11:59 11:59 11:59 11:59 Intake Total 360 / 360 Output Total 150 / 150 Balance 210 / 210 Weight 96 lb 12 oz Microbiology Reports for the Last 24 Hours: Microbiology 06/21/19 16:40 Sputum - Expectorated Sputum Gram Stain - Final - Constitutional no acute distress, thin - *Routine Respiratory Exam Comments: Bibasilar crackles and audible wheezing on the left. - *Routine Cardiovascular Exam Present: RRR - *Routine Abdominal Exam Present: soft, normoactive bowel sounds. Absent: tenderness - *Routine Extremities Exam Absent: edema, calf tenderness - Routine Back/Spine/Pelvis Exam Back/Spine: Present: kyphosis - *Routine Neurological Exam Present: alert, oriented X3 Converses without difficulty Assessment and Plan (1) COPD (chronic obstructive pulmonary disease) Current visit: Yes Status: Acute Qualifiers: COPD type: unspecified COPD Qualified Code(s): J44.9 - Chronic obstructive pulmonary disease, unspecified Category: Medical Code(s): J44.9 - Chronic obstructive pulmonary disease, unspecified (2) Community acquired pneumonia Current visit: Yes Status: Acute Qualifiers: Laterality: left Lung location: lower lobe of lung Qualified Code(s): J18.1 - Lobar pneumonia, unspecified organism Category: Medical Code(s): J18.9 - Pneumonia, unspecified organism (3) Hypothyroidism Current visit: No Status: Chronic Qualifiers: Hypothyroidism type: unspecified Qualified Code(s): E03.9 - Hypothyroidism, unspecified Category: Medical Code(s): E03.9 - Hypothyroidism, unspecified (4) Low TSH level Current visit: Yes Status: Acute Category: Medical Code(s): R79.89 - Other specified abnormal findings of blood chemistry - Assessment and plan all Dx Assessment and Plan for all problems:: Continue with antibiotics and Xopenex nebs. We will add Mucinex.
[2019-06-22 09:58] LABS: Anion Gap 11.1 mEq/L (5-15)
--- NOTE | 2019-06-23 08:36 | Progress Note ---
Internal Medicine - PN: Subj *Date: 06/23/19 *Time: 08:34 Interval history: Patient states she is feeling a little bit better this morning. She is still short of breath. She has some pain across her chest this morning. She states she slept a little bit better last night and did eat some breakfast this morning. Exam Vital signs and Labs for Last 24 Hours: Temp Pulse Resp BP Pulse Ox 98.7 F 69 19 171/63 H 97 06/23/19 04:00 06/23/19 04:00 06/23/19 04:00 06/23/19 04:00 06/23/19 04:00 Laboratory Results - last 24 hr 06/22/19 09:30: Sodium 135 L, Potassium 4.1, Chloride 101, Carbon Dioxide 27, Anion Gap 11.1, BUN 29 H D, Creatinine 1.38 H D, Estimated Creat Clear 20, Estimated GFR 36 L, Est GFR ( Amer) 44 L, Glucose 193 H D, Calcium 9.0 I & O for Last 24 hours: Intake & Output 06/20/19 06/21/19 06/22/19 06/23/19 11:59 11:59 11:59 11:59 Intake Total 720 / 720 600 / 600 Output Total 550 / 550 1325 / 1325 Balance 170 / 170 -725 / -725 Weight 96 lb 11.998 oz 96 lb 6 oz - Constitutional no acute distress - *Routine Respiratory Exam Present: rales (bibasilar), diminished air movement - *Routine Cardiovascular Exam Present: RRR - *Routine Abdominal Exam Present: soft, normoactive bowel sounds, tenderness (diffuse) - *Routine Extremities Exam Absent: cyanosis, clubbing, edema - *Routine Skin Exam Present: warm. Absent: rash - *Routine Neurological Exam Present: alert, oriented X3 Assessment and Plan (1) COPD (chronic obstructive pulmonary disease) Current visit: Yes Status: Acute Qualifiers: COPD type: unspecified COPD Qualified Code(s): J44.9 - Chronic obstructive pulmonary disease, unspecified Category: Medical Code(s): J44.9 - Chronic obstructive pulmonary disease, unspecified (2) Community acquired pneumonia Current visit: Yes Status: Acute Qualifiers: Laterality: left Lung location: lower lobe of lung Qualified Code(s): J18.1 - Lobar pneumonia, unspecified organism Category: Medical Code(s): J18.9 - Pneumonia, unspecified organism (3) Hypothyroidism Current visit: No Status: Chronic Qualifiers: Hypothyroidism type: unspecified Qualified Code(s): E03.9 - Hypothyroidism, unspecified Category: Medical Code(s): E03.9 - Hypothyroidism, unspecified (4) Low TSH level Current visit: Yes Status: Acute Category: Medical Code(s): R79.89 - Other specified abnormal findings of blood chemistry - Assessment and plan all Dx Assessment and Plan for all problems:: Still awaiting sputum and blood cultures. We will continue current treatment.
--- NOTE | 2019-06-24 08:11 | Progress Note ---
Internal Medicine - PN: Subj *Date: 06/24/19 *Time: 08:07 Interval history: Patient states she had a good night until this morning when she got up to go to the bathroom. She states she began getting short of breath, therefore she was given a breathing treatment. After the breathing treatment, she began having pain in her chest. She then began getting very anxious. Her nurse has been in the room with her for quite a while this morning and she is now feeling a little bit better. She denies pain but still states she is short of breath. She did rest better last night but did not eat very much this morning due to the pain. Exam Vital signs and Labs for Last 24 Hours: Temp Pulse Resp BP Pulse Ox 98.1 F 73 21 180/70 H 96 06/24/19 04:00 06/24/19 06:48 06/24/19 04:00 06/24/19 04:00 06/24/19 06:48 I & O for Last 24 hours: Intake & Output 06/21/19 06/22/19 06/23/19 06/24/19 11:59 11:59 11:59 11:59 Intake Total 720 / 720 600 / 600 Output Total 550 / 550 1325 / 1325 800 / 800 Balance 170 / 170 -725 / -725 -800 / -800 Weight 96 lb 11.998 oz 96 lb 6 oz 98 lb 2 oz Microbiology Reports for the Last 24 Hours: Microbiology 06/21/19 15:10 Blood Blood Culture - Preliminary NO GROWTH AFTER 48 HOURS 06/21/19 12:50 Blood Blood Culture - Preliminary NO GROWTH AFTER 48 HOURS Radiology Reports for the Last 24 Hours: CXR - 1. Left lower lobe consolidation with left-sided effusion with chronic changes. 2. Kyphosis of the thoracic spine with multi level compressive changes and prior vertebral plasty at T12 - Constitutional no acute distress - *Routine Respiratory Exam Present: rales (bibasilar), wheezes, diminished air movement - *Routine Cardiovascular Exam Present: RRR - *Routine Abdominal Exam Present: soft, normoactive bowel sounds. Absent: tenderness - *Routine Extremities Exam Absent: cyanosis, clubbing, edema - *Routine Neurological Exam Present: alert, oriented X3 Assessment and Plan (1) COPD (chronic obstructive pulmonary disease) Current visit: Yes Status: Acute Qualifiers: COPD type: unspecified COPD Qualified Code(s): J44.9 - Chronic obstructive pulmonary disease, unspecified Category: Medical Code(s): J44.9 - Chronic obstructive pulmonary disease, unspecified (2) Community acquired pneumonia Current visit: Yes Status: Acute Qualifiers: Laterality: left Lung location: lower lobe of lung Qualified Code(s): J18.1 - Lobar pneumonia, unspecified organism Category: Medical Code(s): J18.9 - Pneumonia, unspecified organism (3) Hypothyroidism Current visit: No Status: Chronic Qualifiers: Hypothyroidism type: unspecified Qualified Code(s): E03.9 - Hypothyroidism, unspecified Category: Medical Code(s): E03.9 - Hypothyroidism, unspecified (4) Low TSH level Current visit: Yes Status: Acute Category: Medical Code(s): R79.89 - Other specified abnormal findings of blood chemistry - Assessment and plan all Dx Assessment and Plan for all problems:: Blood cultures show no growth. Sputum culture is still pending. We will continue current treatment and get some labs this morning.
[2019-06-24 09:02] LABS: Basophils % 0.1 % (0.1-2.0); Hematocrit 34.5 % (37.0-47.0); Hemoglobin 10.3 g/dL (12.2-16.2); Lymphocytes # 0.5 K/mm3 (0.7-4.5); Lymphocytes % 4.6 % (10-50); Mean Corpuscular HGB Conc 29.7 g/dL (31.8-35.4); Mean Corpuscular Volume 99.8 fl (81-99); Mean Platelet Volume 8.8 fl (7.4-10.4); Monocytes # 0.5 K/mm3 (0.1-1.0); Monocytes % 4.9 % (1.7-9.3); Neutrophils # 9.4 K/mm3 (1.8-7.8); Neutrophils % 90.3 % (37.0-80.0); Platelet Count 205 K/mm3 (142-424); Red Blood Count 3.46 M/mm3 (4.20-5.40); Red Cell Distribution Width 15.1 % (11.5-17.5); White Blood Count 10.4 K/mm3 (4.8-10.8)
[2019-06-24 09:23] LABS: Albumin Level 3.1 gm/dL (3.4-5.0); Albumin/Globulin Ratio 0.8 (1.1-1.8); Bilirubin,Total 0.3 mg/dL (0.2-1.0); Calcium 9.1 mg/dL (8.5-10.1); Globulin 3.8 gm/dl (1.3-3.2); Total Protein,Serum 6.9 gm/dL (6.4-8.2)
[2019-06-24 13:22] LABS: Hypochromasia 1+; Lymphocytes % 4 % (10-50); Monocytes % 1 % (2-9); Myelocytes % 1 (0-1); Neutrophils % 92 % (42-76); Total Cells Counted 100
--- NOTE | 2019-06-25 09:59 | Progress Note ---
Internal Medicine - PN: Subj *Date: 06/25/19 *Time: 09:58 Exam Vital signs and Labs for Last 24 Hours: Temp Pulse Resp BP Pulse Ox 98.0 F 78 20 183/42 H 97 06/25/19 08:00 06/25/19 08:00 06/25/19 08:00 06/25/19 08:00 06/25/19 08:00 Laboratory Results - last 24 hr 06/24/19 08:55: Total Counted 100, Neutrophils % (Manual) 92 H, Band Neutrophils % 2.0, Lymphocytes % (Manual) 4 L, Monocytes % (Manual) 1 L, Myelocytes % 1, Platelet Estimate Normal, Hypochromasia 1+ I & O for Last 24 hours: Intake & Output 06/22/19 06/23/19 06/24/19 06/25/19 23:59 23:59 23:59 23:59 Intake Total 600 / 600 360 / 360 600 / 600 390 / 390 Output Total 1225 / 1225 800 / 800 700 / 700 300 / 300 Balance -625 / -625 -440 / -440 -100 / -100 90 / 90 Weight 43.885 kg 43.715 kg 44.509 kg 44.622 kg Microbiology Reports for the Last 24 Hours: Microbiology 06/21/19 16:40 Sputum - Expectorated Sputum Gram Stain - Final 06/21/19 16:40 Sputum - Expectorated Sputum Sputum Culture - Preliminary Gram Positive Cocci Assessment and Plan (1) COPD (chronic obstructive pulmonary disease) Current visit: Yes Status: Acute Qualifiers: COPD type: unspecified COPD Qualified Code(s): J44.9 - Chronic obstructive pulmonary disease, unspecified Category: Medical Code(s): J44.9 - Chronic obstructive pulmonary disease, unspecified (2) Community acquired pneumonia Current visit: Yes Status: Acute Qualifiers: Laterality: left Lung location: lower lobe of lung Qualified Code(s): J1 8.1 - Lobar pneumonia, unspecified organism Category: Medical Code(s): J18.9 - Pneumonia, unspecified organism (3) Hypothyroidism Current visit: No Status: Chronic Qualifiers: Hypothyroidism type: unspecified Qualified Code(s): E03.9 - Hypothyroidism, unspecified Category: Medical Code(s): E03.9 - Hypothyroidism, unspecified (4) Low TSH level Current visit: Yes Status: Acute Category: Medical Code(s): R79.89 - Other specified abnormal findings of blood chemistry The patient's infection will respond to the chosen ABx?: Yes Is the patient receiving the right drug, dose, and route?: Yes Could a more targeted ABx be ordered?: No
--- NOTE | 2019-06-25 14:42 | Progress Note ---
Internal Medicine - PN: Subj *Date: 06/25/19 *Time: 14:39 Interval history: Slow improvement. Perhaps a bit stronger on exertion she states. Productive cough last night and today. Blood pressures have been running high. Exam Vital signs and Labs for Last 24 Hours: Temp Pulse Resp BP Pulse Ox 97.3 F L 68 18 181/72 H 95 06/25/19 12:00 06/25/19 12:00 06/25/19 12:00 06/25/19 12:00 06/25/19 12:00 I & O for Last 24 hours: Intake & Output 06/23/19 06/24/19 06/25/19 06/26/19 11:59 11:59 11:59 11:59 Intake Total 600 / 600 120 / 120 870 / 870 240 / 240 Output Total 1325 / 1325 800 / 800 500 / 500 400 / 400 Balance -725 / -725 -680 / -680 370 / 370 -160 / -160 Weight 96 lb 6 oz 98 lb 2 oz 98 lb 6 oz Microbiology Reports for the Last 24 Hours: Microbiology 06/21/19 16:40 Sputum - Expectorated Sputum Gram Stain - Final 06/21/19 16:40 Sputum - Expectorated Sputum Sputum Culture - Preliminary Gram Positive Cocci - Constitutional no acute distress - *Routine HEENT Exam Head: Present: normocephalic Eye: Present: PERRL - *Routine Respiratory Exam Present: decreased breath sounds (On the left. Vocal transmission) - *Routine Cardiovascular Exam Present: RRR - *Routine Abdominal Exam Present: soft. Absent: tenderness - *Routine Extremities Exam Absent: edema Assessment and Plan (1) COPD (chronic obstructive pulmonary disease) Current visit: Yes Status: Acute Qualifiers: COPD type: unspecified COPD Qualified Code(s): J44.9 - Chronic obstructive pulmonary disease, unspecified Category: Medical Code(s): J44.9 - Chronic obstructive pulmonary disease, unspecified (2) Community acquired pneumonia Current visit: Yes Status: Acute Qualifiers: Laterality: left Lung location: lower lobe of lung Qualified Code(s): J18.1 - Lobar pneumonia, unspecified organism Category: Medical Code(s): J18.9 - Pneumonia, unspecified organism (3) Hypothyroidism Current visit: No Status: Chronic Qualifiers: Hypothyroidism type: unspecified Qualified Code(s): E03.9 - Hypothyroidism, unspecified Category: Medical Code(s): E03.9 - Hypothyroidism, unspecified (4) Low TSH level Current visit: Yes Status: Acute Category: Medical Code(s): R79.89 - Other specified abnormal findings of blood chemistry - Assessment and plan all Dx Assessment and Plan for all problems:: Cardizem dose will be increased to 360 mg extended release. She will receive an additional 120 today for a total of 360 today.
[2019-06-26 07:10] LABS: Basophils % 0.1 % (0.1-2.0); Eosinophils # 0.1 K/mm3 (0.0-0.4); Eosinophils % 0.8 % (0.1-12.0); Hemoglobin 9.5 g/dL (12.2-16.2); Lymphocytes # 0.4 K/mm3 (0.7-4.5); Lymphocytes % 5.4 % (10-50); Mean Corpuscular Volume 95.6 fl (81-99); Mean Platelet Volume 8.4 fl (7.4-10.4); Monocytes # 0.4 K/mm3 (0.1-1.0); Monocytes % 5.1 % (1.7-9.3); Neutrophils # 6.8 K/mm3 (1.8-7.8); Neutrophils % 88.6 % (37.0-80.0); Platelet Count 206 K/mm3 (142-424); Red Blood Count 3.09 M/mm3 (4.20-5.40); White Blood Count 7.7 K/mm3 (4.8-10.8)
[2019-06-26 07:14] LABS: Hematocrit 29.6 % (37.0-47.0)
[2019-06-26 07:17] LABS: Anion Gap 8.6 mEq/L (5-15); Calcium 8.9 mg/dL (8.5-10.1)
[2019-06-26 07:22] LABS: Lymphocytes % 12 % (10-50); Monocytes % 4 % (2-9); Neutrophils % 74 % (42-76); RBC Morphology Normal; Total Cells Counted 100
--- NOTE | 2019-06-26 12:22 | Progress Note ---
Internal Medicine - PN: Subj *Date: 06/26/19 *Time: 12:20 Interval history: She is sitting up eating. Does not report feeling much better. Complains that she is not getting her MiraLAX dose. Exam Vital signs and Labs for Last 24 Hours: Temp Pulse Resp BP Pulse Ox 98.0 F 58 L 22 177/60 H 96 06/26/19 08:00 06/26/19 08:18 06/26/19 08:18 06/26/19 08:00 06/26/19 08:18 Laboratory Results - last 24 hr 06/26/19 06:30: WBC 7.7 D, RBC 3.09 L, Hgb 9.5 L, Hct 29.6 L, MCV 95.6, MCH 30.6, MCHC 32.0, RDW 15.0, Plt Count 206, MPV 8.4, Neut % (Auto) 88.6 H, Lymph % (Auto) 5.4 L, Crenshaw % (Auto) 5.1, Eos % (Auto) 0.8, Baso % (Auto) 0.1, Neut # (Auto) 6.8, Lymph # (Auto) 0.4 L, Crenshaw # (Auto) 0.4, Eos # (Auto) 0.1, Baso # (Auto) 0.0, Total Counted 100, Neutrophils % (Manual) 74, Band Neutrophils % 10.0 H, Lymphocytes % (Manual) 12, Monocytes % (Manual) 4, Platelet Estimate Normal, RBC Morphology Normal 06/26/19 06:30: Sodium 137, Potassium 3.6, Chloride 101, Carbon Dioxide 31, Anion Gap 8.6, BUN 35 H, Creatinine 0.99, Estimated Creat Clear 28, Estimated GFR 53 L, Est GFR ( Amer) 64 D, Glucose 133 H, Calcium 8.9 I & O for Last 24 hours: Intake & Output 06/24/19 06/25/19 06/26/19 06/27/19 11:59 11:59 11:59 11:59 Intake Total 120 / 120 870 / 870 1270 / 1270 Output Total 800 / 800 500 / 500 1150 / 1150 Balance -680 / -680 370 / 370 120 / 120 Weight 98 lb 2 oz 98 lb 6 oz 98 lb 5.995 oz Microbiology Reports for the Last 24 Hours: Microbiology 06/21/19 16:40 Sputum - Expectorated Sputum Gram Stain - Final 06/21/19 16:40 Sputum - Expectorated Sputum Sputum Culture - Preliminary Gram Positive Cocci - Constitutional no acute distress - *Routine Respiratory Exam Present: decreased breath sounds (She is moving air better than she was on the left today) - *Routine Cardiovascular Exam Present: RRR - *Routine Extremities Exam Absent: edema Assessment and Plan (1) COPD (chronic obstructive pulmonary disease) Current visit: Yes Status: Acute Qualifiers: COPD type: unspecified COPD Qualified Code(s): J44.9 - Chronic obstructive pulmonary disease, unspecified Category: Medical Code(s): J44.9 - Chronic obstructive pulmonary disease, unspecified (2) Community acquired pneumonia Current visit: Yes Status: Acute Qualifiers: Laterality: left Lung location: lower lobe of lung Qualified Code(s): J18.1 - Lobar pneumonia, unspecified organism Category: Medical Code(s): J18.9 - Pneumonia, unspecified organism (3) Hypothyroidism Current visit: No Status: Chronic Qualifiers: Hypothyroidism type: unspecified Qualified Code(s): E03.9 - Hypothyroidism, unspecified Category: Medical Code(s): E03.9 - Hypothyroidism, unspecified (4) Low TSH level Current visit: Yes Status: Acute Category: Medical Code(s): R79.89 - Other specified abnormal findings of blood chemistry - Assessment and plan all Dx Assessment and Plan for all problems:: Continue present regimen. I believe we are making slow progress.
--- NOTE | 2019-06-27 08:46 | Progress Note ---
Internal Medicine - PN: Subj *Date: 06/27/19 *Time: 08:42 Interval history: Patient she might be just a little bit better today with better breathing. She coughed twice and was excited about this. Appetite has not returned to normal yet. She has been and has sat in the chair. This made her extremely short of breath. She is voiding. She has been restarted on her MiraLAX she feels her bowels will move. Exam Vital signs and Labs for Last 24 Hours: Temp Pulse Resp BP Pulse Ox 98.0 F 94 H 20 177/68 H 97 06/27/19 08:00 06/27/19 08:00 06/27/19 08:00 06/27/19 08:00 06/27/19 08:00 I & O for Last 24 hours: Intake & Output 06/24/19 06/25/19 06/26/19 06/27/19 11:59 11:59 11:59 11:59 Intake Total 120 / 120 870 / 870 1270 / 1270 1400 / 1400 Output Total 800 / 800 500 / 500 1150 / 1350 1750 / 1750 Balance -680 / -680 370 / 370 120 / -80 -350 / -350 Weight 98 lb 2 oz 98 lb 6 oz 98 lb 5.995 oz 100 lb Microbiology Reports for the Last 24 Hours: Microbiology 06/21/19 15:10 Blood Blood Culture - Final NO GROWTH AFTER 5 DAYS 06/21/19 12:50 Blood Blood Culture - Final NO GROWTH AFTER 5 DAYS - Constitutional no acute distress Comments: Awake and alert and sitting up in the bed. Appears comfortable. - *Routine Respiratory Exam Comments: Distant soft wheeze on the left. Breath sounds posteriorly. - *Routine Cardiovascular Exam Present: RRR - *Routine Abdominal Exam Present: soft, normoactive bowel sounds. Absent: tenderness - *Routine Extremities Exam Absent: edema, calf tenderness - *Routine Neurological Exam Present: alert, oriented X3 Assessment and Plan (1) COPD (chronic obstructive pulmonary disease) Current visit: Yes Status: Acute Qualifiers: COPD type: unspecified COPD Qualified Code(s): J44.9 - Chronic obstructive pulmonary disease, unspecified Category: Medical Code(s): J44.9 - Chronic obstructive pulmonary disease, unspecified (2) Community acquired pneumonia Current visit: Yes Status: Acute Qualifiers: Laterality: left Lung location: lower lobe of lung Qualified Code(s): J18.1 - Lobar pneumonia, unspecified organism Category: Medical Code(s): J18.9 - Pneumonia, unspecified organism (3) Hypothyroidism Current visit: No Status: Chronic Qualifiers: Hypothyroidism type: unspecified Qualified Code(s): E03.9 - Hypothyroidism, unspecified Category: Medical Code(s): E03.9 - Hypothyroidism, unspecified (4) Low TSH level Current visit: Yes Status: Acute Category: Medical Code(s): R79.89 - Other specified abnormal findings of blood chemistry - Assessment and plan all Dx Assessment and Plan for all problems:: Renal function is normal. Will restart losartan. Continue IV antibiotics.
--- NOTE | 2019-06-28 08:37 | Progress Note ---
Internal Medicine - PN: Subj *Date: 06/28/19 *Time: 07:40 Interval history: Pt is sitting up in bed with family at bedside, notes that she is feeling slightly better. She has been up to the C several times overnight and reports BM x 4. She remains SOBOE with cough becoming slightly more productive since yesterday. She remains nauseated although she was able to eat a small amount of breakfast. She has not vomited and describes current abdominal discomfort as "cramping." Exam Vital signs and Labs for Last 24 Hours: Temp Pulse Resp BP Pulse Ox 98.0 F 71 18 181/70 H 94 L 06/28/19 08:00 06/28/19 08:00 06/28/19 08:00 06/28/19 08:00 06/28/19 08:00 I & O for Last 24 hours: Intake & Output 06/25/19 06/26/19 06/27/19 06/28/19 11:59 11:59 11:59 11:59 Intake Total 870 / 870 1270 / 1270 1640 / 1640 240 / 240 Output Total 500 / 500 1150 / 1350 1750 / 1750 1000 / 1000 Balance 370 / 370 120 / -80 -110 / -110 -760 / -760 Weight 98 lb 6 oz 98 lb 5.995 oz 100 lb 101 lb Microbiology Reports for the Last 24 Hours: Microbiology 06/21/19 16:40 Sputum - Expectorated Sputum Gram Stain - Final 06/21/19 16:40 Sputum - Expectorated Sputum Sputum Culture - Final Normal Respiratory Daniella - Constitutional no acute distress - *Routine Respiratory Exam Comments: generally diminished with scattered rhonchi and wheezes throughout, notably SOB with position changes or movement in bed - *Routine Cardiovascular Exam Present: RRR - *Routine Abdominal Exam Comments: BS present x 4, soft, not distended, mildly and diffusely ttp throughout - *Routine Extremities Exam Present: full ROM, pulses intact. Absent: calf tenderness Comments: 1+ BLE edema with trace BUE edema - *Routine Neurological Exam Present: alert, oriented X3, moving all extremities Assessment and Plan (1) COPD (chronic obstructive pulmonary disease) Current visit: Yes Status: Acute Qualifiers: COPD type: unspecified COPD Qualified Code(s): J44.9 - Chronic obstructive pulmonary disease, unspecified Category: Medical Code(s): J44.9 - Chronic obstructive pulmonary disease, unspecified (2) Community acquired pneumonia Current visit: Yes Status: Acute Qualifiers: Laterality: left Lung location: lower lobe of lung Qualified Code(s): J18.1 - Lobar pneumonia, unspecified organism Category: Medical Code(s): J18.9 - Pneumonia, unspecified organism (3) Hypothyroidism Current visit: No Status: Chronic Qualifiers: Hypothyroidism type: unspecified Qualified Code(s): E03.9 - Hypothyroidism, unspecified Category: Medical Code(s): E03.9 - Hypothyroidism, unspecified (4) Low TSH level Current visit: Yes Status: Acute Category: Medical Code(s): R79.89 - Other specified abnormal findings of blood chemistry - Assessment and plan all Dx Assessment and Plan for all problems:: Pt slightly improved. Will continue current care. Further per Dr. Rodriguez.
--- NOTE | 2019-06-28 18:41 | Consult Report ---
*Admission Date: 06/21/19 *Reason for consult:: Pneumonia *History of present illness: Ms. Castillo is an 89-year-old woman whom I initially met in 2010 when she presented with increased cough and dyspnea related to severe chronic obstructive pulmonary disease. She had a long smoking history, up to 2 packages of cigarettes daily, until she quit at the age of 72. I followed her over the years until about 2-1/2 years ago for COPD. She also has coronary artery disease, a history of atrial fibrillation and TIA and ischemic colitis. She had multiple abdominal complaints for years, possibly related to vascular disease in part. She also had anemia as a persistent problem. Over the last year or so, she has been more troubled by chronic pain and had surgery for back pain, I understand. For the last several weeks at least, she has had an increase in her chronic cough which is productive of thick, yellow to green sputum. She had feverish feelings and some chills weeks ago and "felt sick." She did not have significant gastrointestinal complaints, however. She had no significant chest pain and, although her weight has fluctuated with treatment for edema, she does not think that she has lost a significant amount. She was admitted here and found to have a large left pleural effusion associated with an abnormality in the left lower lobe. She has been treated for pneumonia and feels a little better. Today, she told me that it is difficult for her to expectorate anything now and, when she does cough up something, it is bloody. She feels weak and her appetite is fair. [facility] History Medical History: Reports:: Arrhythmia, Atherosclerotic Heart Disease, Atrial Fibrillation, Chronic Obstructive Pulmonary Disease (COPD), Coronary Artery Disease, Gastroesophageal Reflux Disease(GERD), Home Oxygen, Hypertension, Lung Disease, Transient Ischemic Attacks (TIA) Denies:: Cancer, Diabetes Mellitus Type 1, Diabetes Mellitus Type 2, Internal Pacemaker, MRSA, Seizures *Have you ever received a pneumonia vaccine?: No *Have you received a flu vaccine this season?: No Other Medical History: Reports: Anemia, Arthritis, Hypothyroidism, Thyroid Disease, Other (Angina, Kyphosis). Denies: Blood Transfusion Reaction Other Surgeries: No: Pacemaker Amputation: No Fractures: Yes (COMPRESSION FX BACK) - *Social History Educational Level: Attended College Smoking Status: Former smoker # Packs/Day (cigarettes): 1 #Yrs smoked (if former smoker): 52 Smoking End Date: 11/23/2000 Alcohol Intake: never *Occupational Status:: retired Housing: house Household Members: family *Travel in the last 8 weeks: None - Psychiatric History Expresses thoughts of harming self/others: None Suicide Plan Description: No Plan Family Hx:: Coronary Artery Disease, Diabetes Review of Systems - Review of Systems Review of systems:: pertinent systems reviewed and negative unless documented below - Constitutional Reports anorexia - *Cardiovascular Reports leg swelling - *Respiratory Reports chest congestion, Reports cough, Reports shortness of breath with activity, Reports coughing up blood - *Gastrointestinal Reports abdominal pain, Reports bloating - *Neurologic Reports dizziness, Reports weakness Meds Home Medications Medication Instructions Recorded Confirmed Type Aspirin [Aspirin 81mg chewable 81 mg PO DAILY 06/30/18 06/21/19 History tab] Bifidobacterium Infantis [Align] 4 mg PO DAILY 06/30/18 06/21/19 History Bisoprolol Fumarate [Zebeta 5mg 2.5 mg PO BID 06/30/18 06/22/19 History tablet] Ferrous Gluconate [Ferrous 324 mg PO DAILY 06/30/18 06/21/19 History Gluconate 324mg Tab] Furosemide [Lasix 40mg tablet] 40 mg PO DIRECTED 06/30/18 06/22/19 History Isosorbide Mononitrate [Imdur 30mg 60 mg PO DAILY 06/30/18 06/22/19 History ER tablet] Magnesium Oxide [Mag-Ox 400mg Tab] 400 mg PO HS 06/30/18 06/21/19 History Nitroglycerin 0.4 mg SL NEEDED PRN 06/30/18 06/21/19 History Polyethylene Glycol 3350 [Gavilax] 17 gm PO DAILY 06/30/18 06/21/19 History Spironolactone [Spironolactone 25 mg PO DAILY 06/30/18 06/21/19 History 25mg Tablet] dilTIAZem HCl [Diltiazem 240mg 240 mg PO DAILY 06/30/18 06/21/19 History 24Hr ER Cap] Levothyroxine Sodium [Synthroid 100 mcg PO DAILYDM 07/16/18 06/21/19 History 100mcg (0.1mg) tablet] Metoclopramide HCl [Reglan 5mg 2.5 mg PO AC 07/16/18 06/21/19 History Tablet] Sucralfate [Carafate 1gm/10mL 10 ml PO ACHS 07/16/18 06/22/19 History Susp] Albuterol Sulfate [Albuterol HFA 1 puff IH Q4HP PRN 07/20/18 06/21/19 History Inhaler] Fluticasone/Umeclidin/Vilanter 1 each IH DAILY 07/20/18 06/21/19 History [Trelegy Ellipta 100-62.5-25] Sennosides/Docusate Sodium [Stool 1 each PO DAILY 07/20/18 06/21/19 History Softener-Laxative Tablet] Roflumilast [Daliresp] 250 mcg PO DAILY 06/21/19 06/21/19 History Loratadine [Allergy] 10 mg PO DAILY 06/22/19 06/22/19 History Losartan Potassium 25 mg PO DAILY 06/22/19 06/22/19 History Omeprazole [Omeprazole 40mg 40 mg PO DAILY 06/22/19 06/22/19 History Capsule] Potassium Chloride [Micro-K 10mEq 20 meq PO DAILY 06/22/19 06/22/19 History cap] Allergies Allergy/AdvReac Type Severity Reaction Status Date / Time diatrizoate sodium Allergy Severe S-SWELLS-OR Verified 07/20/18 13:25 [From HYPAQUE] AL/THROAT Influenza Virus Vaccines Allergy Intermediate I-ITCHING Verified 07/20/18 13:25 [INFLUENZA VIRUS VACCINES] levofloxacin [From LEVAQUIN] Allergy Intermediate I-RASH Verified 07/20/18 13:25 codeine [CODEINE] Allergy Mild "HEADACHE" Verified 07/20/18 13:25 Sulfa (Sulfonamide Allergy Mild NA-NAUSEA/V Verified 07/20/18 13:25 Antibiotics) OMITING [SULFA (SULFONAMIDE ANTIBIOTICS)] mometasone furoate Allergy Unknown Verified 07/20/18 13:25 [From NASONEX] Exam Vital signs and Labs for Last 24 Hours: Temp Pulse Resp BP Pulse Ox 97.9 F 70 21 163/70 H 98 06/28/19 16:00 06/28/19 16:00 06/28/19 16:00 06/28/19 16:00 06/28/19 16:00 I & O for Last 24 hours: Intake & Output 06/25/19 06/26/19 06/27/19 06/28/19 23:59 23:59 23:59 23:59 Intake Total 1170 / 1170 1760 / 1760 370 / 370 240 / 240 Output Total 1100 / 1100 1800 / 1800 800 / 800 500 / 500 Balance 70 / 70 -40 / -40 -430 / -430 -260 / -260 Weight 44.622 kg 44.622 kg 45.359 kg 45.813 kg Microbiology Reports for the Last 24 Hours: Microbiology 06/21/19 16:40 Sputum - Expectorated Sputum Gram Stain - Final 06/21/19 16:40 Sputum - Expectorated Sputum Sputum Culture - Final Normal Respiratory Daniella Narrative: Ms. Castillo is a chronically ill appearing woman who is sitting up in a chair wearing oxygen by nasal cannula. She has been eating a little dinner. She is alert and oriented and articulate and remembered me well. HEENT: Sclerae clear; conjunctivae pale; the oropharynx is significant for dentures and dry mucosa. I saw no oral lesions. Neck: No adenopathy or JVD sitting Chest: Symmetrical expansion; dullness by percussion at the left base with absent vocal fremitus at the left base and decreased breath sounds there. The rest of the lung examination was unremarkable and there were no adventitious sounds. Heart: Regular rhythm Abdomen: Bowel sounds diminished; soft but slightly tender with deep palpation. I could detect no organomegaly. Extremities: 1+ edema of the legs. Internal Medicine - CN: Reslt - Labs CBC & Chem 7: 06/26/19 06:30 06/26/19 06:30 Assessment and Plan (1) COPD (chronic obstructive pulmonary disease) Current visit: Yes Status: Acute Qualifiers: COPD type: unspecified COPD Qualified Code(s): J44.9 - Chronic obstructive pulmonary disease, unspecified Category: Medical Code(s): J44.9 - Chronic obstructive pulmonary disease, unspecified (2) Community acquired pneumonia Current visit: Yes Status: Acute Qualifiers: Laterality: left Lung location: lower lobe of lung Qualified Code(s): J18.1 - Lobar pneumonia, unspecified organism Category: Medical Code(s): J18.9 - Pneumonia, unspecified organism (3) Hypothyroidism Current visit: No Status: Chronic Qualifiers: Hypothyroidism type: unspecified Qualified Code(s): E03.9 - Hypothyroidism, unspecified Category: Medical Code(s): E03.9 - Hypothyroidism, unspecified (4) Low TSH level Current visit: Yes Status: Acute Category: Medical Code(s): R79.89 - Other specified abnormal findings of blood chemistry - Assessment and plan all Dx Assessment and Plan for all problems:: Ms. Castillo was admitted with a prolonged course of cough and breathlessness associated with an abnormality on CT scan of the chest. When I compared the present CT with past studies, the area of infiltrate or atelectasis at the left base is not seen. She has had a small pleural effusion in the past and it is larger now. The appearance is more of atelectasis than consolidation to me and I wonder if it is a chronic process that may have become infected. She is coughing up some blood now and the source may or may not be the lung. Bronchoscopy could be considered. However, she is very frail and I think palliation is the best approach to managing her. Ultrasound-guided thoracentesis may be quite helpful in determining whether or not she has a parapneumonic effusion or another cause for the pleural effusion. I agree with continuing antibiotics and she ought to be receiving nebulized bronchodilators. I be happy to speak with you during the coming days to discuss her hospital course further. Thank you for the opportunity to participate in her care.
--- NOTE | 2019-06-29 08:23 | Progress Note ---
Internal Medicine - PN: Subj *Date: 06/29/19 *Time: 08:21 Interval history: Patient states she thinks she feels a little bit better this morning. She is now coughing up some blood. She still gets very short of breath with any movement but is better as long as she is sitting still. She has been sitting up in the chair this morning and did tolerate breakfast. Exam Vital signs and Labs for Last 24 Hours: Temp Pulse Resp BP Pulse Ox 97.7 F 74 18 151/73 H 100 06/29/19 08:00 06/29/19 08:00 06/29/19 08:00 06/29/19 08:00 06/29/19 08:00 I & O for Last 24 hours: Intake & Output 06/26/19 06/27/19 06/28/19 06/29/19 11:59 11:59 11:59 11:59 Intake Total 1270 / 1270 1640 / 1640 240 / 240 440 / 440 Output Total 1150 / 1350 1750 / 1750 1000 / 1000 500 / 500 Balance 120 / -80 -110 / -110 -760 / -760 -60 / -60 Weight 98 lb 5.995 oz 100 lb 101 lb 101 lb 7 oz - Constitutional no acute distress - *Routine Respiratory Exam Present: wheezes (faint - much improved), diminished air movement. Absent: rales - *Routine Cardiovascular Exam Present: RRR - *Routine Abdominal Exam Present: soft, normoactive bowel sounds, distended. Absent: tenderness - *Routine Extremities Exam Absent: cyanosis, clubbing, edema - *Routine Skin Exam Present: warm. Absent: rash - *Routine Neurological Exam Present: alert, oriented X3 Assessment and Plan (1) COPD (chronic obstructive pulmonary disease) Current visit: Yes Status: Acute Qualifiers: COPD type: unspecified COPD Qualified Code(s): J44.9 - Chronic obstructive pulmonary disease, unspecified Category: Medical Code(s): J44.9 - Chronic obstructive pulmonary disease, unspecified (2) Community acquired pneumonia Current visit: Yes Status: Acute Qualifiers: Laterality: left Lung location: lower lobe of lung Qualified Code(s): J18.1 - Lobar pneumonia, unspecified organism Category: Medical Code(s): J18.9 - Pneumonia, unspecified organism (3) Hypothyroidism Current visit: No Status: Chronic Qualifiers: Hypothyroidism type: unspecified Qualified Code(s): E03.9 - Hypothyroidism, unspecified Category: Medical Code(s): E03.9 - Hypothyroidism, unspecified (4) Low TSH level Current visit: Yes Status: Acute Category: Medical Code(s): R79.89 - Other specified abnormal findings of blood chemistry - Assessment and plan all Dx Assessment and Plan for all problems:: Dr. Garcia's note reviewed. Will discuss further care with Dr. Rodriguez.
--- NOTE | 2019-06-30 08:40 | Progress Note ---
Internal Medicine - PN: Subj *Date: 06/30/19 *Time: 08:33 Interval history: Patient states she feels like she is retaining more fluid today. Her left arm has been swelling and she has had worse lower extremity edema. She states she is very short of breath with any movement or even with talking. Exam Vital signs and Labs for Last 24 Hours: Temp Pulse Resp BP Pulse Ox 98.4 F 65 18 176/58 H 97 06/30/19 07:49 06/30/19 07:49 06/30/19 07:49 06/30/19 07:49 06/30/19 07:49 I & O for Last 24 hours: Intake & Output 06/27/19 06/28/19 06/29/19 06/30/19 11:59 11:59 11:59 11:59 Intake Total 1640 / 1640 240 / 240 440 / 440 840 / 840 Output Total 1750 / 1750 1000 / 1000 500 / 500 950 / 950 Balance -110 / -110 -760 / -760 -60 / -60 -110 / -110 Weight 100 lb 101 lb 101 lb 7 oz 103 lb 1 oz - Constitutional no acute distress - *Routine Respiratory Exam Present: decreased breath sounds, wheezes - *Routine Cardiovascular Exam Present: RRR - *Routine Abdominal Exam Present: soft, normoactive bowel sounds, distended. Absent: tenderness - *Routine Extremities Exam Present: edema (LE edema). Absent: cyanosis, clubbing - *Routine Skin Exam Present: warm. Absent: rash - *Routine Neurological Exam Present: alert, oriented X3 Assessment and Plan (1) COPD (chronic obstructive pulmonary disease) Current visit: Yes Status: Acute Qualifiers: COPD type: unspecified COPD Qualified Code(s): J44.9 - Chronic obstructive pulmonary disease, unspecified Category: Medical Code(s): J44.9 - Chronic obstructive pulmonary disease, unspecified (2) Community acquired pneumonia Current visit: Yes Status: Acute Qualifiers: Laterality: left Lung location: lower lobe of lung Qualified Code(s): J18.1 - Lobar pneumonia, unspecified organism Category: Medical Code(s): J18.9 - Pneumonia, unspecified organism (3) Hypothyroidism Current visit: No Status: Chronic Qualifiers: Hypothyroidism type: unspecified Qualified Code(s): E03.9 - Hypothyroidism, unspecified Category: Medical Code(s): E03.9 - Hypothyroidism, unspecified (4) Low TSH level Current visit: Yes Status: Acute Category: Medical Code(s): R79.89 - Other specified abnormal findings of blood chemistry - Assessment and plan all Dx Assessment and Plan for all problems:: Patient's weight has increased. May need an extra dose of Lasix but will check renal function first.
[2019-06-30 09:51] LABS: Eosinophils % 0.1 % (0.1-12.0); Hemoglobin 9.8 g/dL (12.2-16.2); Lymphocytes # 0.3 K/mm3 (0.7-4.5); Lymphocytes % 2.5 % (10-50); Mean Corpuscular HGB Conc 32.7 g/dL (31.8-35.4); Mean Corpuscular Volume 96.5 fl (81-99); Mean Platelet Volume 7.7 fl (7.4-10.4); Monocytes # 0.4 K/mm3 (0.1-1.0); Monocytes % 3.6 % (1.7-9.3); Neutrophils # 10.7 K/mm3 (1.8-7.8); Neutrophils % 93.8 % (37.0-80.0); Platelet Count 265 K/mm3 (142-424); Red Blood Count 3.11 M/mm3 (4.20-5.40); Red Cell Distribution Width 15.5 % (11.5-17.5); White Blood Count 11.4 K/mm3 (4.8-10.8)
[2019-06-30 10:02] LABS: Albumin Level 2.7 gm/dL (3.4-5.0); Albumin/Globulin Ratio 0.9 (1.1-1.8); Anion Gap 6.5 mEq/L (5-15); Bilirubin,Total 0.4 mg/dL (0.2-1.0); Calcium 8.3 mg/dL (8.5-10.1); Total Protein,Serum 5.7 gm/dL (6.4-8.2)
[2019-06-30 13:13] LABS: Lymphocytes % 2 % (10-50); Monocytes % 3 % (2-9); Neutrophils % 86 % (42-76); Total Cells Counted 100
[2019-06-30 13:14] LABS: RBC Morphology Normal
--- NOTE | 2019-07-01 08:25 | Progress Note ---
Internal Medicine - PN: Subj *Date: 07/01/19 *Time: 08:21 Interval history: Patient states she feels about the same today. She is very weak with any exertion and even with eating. Her shortness of breath is about the same. She still has some swelling and states that even with the diuretics yesterday, she did not have a lot of urinary output. Her weight is up today. Exam Vital signs and Labs for Last 24 Hours: Temp Pulse Resp BP Pulse Ox 98.0 F 64 16 162/60 H 99 07/01/19 03:20 07/01/19 06:19 07/01/19 03:20 07/01/19 03:20 07/01/19 06:19 Laboratory Results - last 24 hr 06/30/19 09:30: WBC 11.4 H, RBC 3.11 L, Hgb 9.8 L, Hct 30.0 L, MCV 96.5, MCH 31.6 H, MCHC 32.7, RDW 15.5, Plt Count 265, MPV 7.7, Neut % (Auto) 93.8 H, Lymph % (Auto) 2.5 L, [place] % (Auto) 3.6, Eos % (Auto) 0.1, Baso % (Auto) 0.0 L, Neut # (Auto) 10.7 H, Lymph # (Auto) 0.3 L, [place] # (Auto) 0.4, Eos # (Auto) 0.0, Baso # (Auto) 0.0, Total Counted 100, Neutrophils % (Manual) 86 H, Band Neutrophils % 9.0 H, Lymphocytes % (Manual) 2 L, Monocytes % (Manual) 3, Platelet Estimate Normal, RBC Morphology Normal 06/30/19 09:30: Sodium 134 L, Potassium 3.5, Chloride 96 L, Carbon Dioxide 35 H, Anion Gap 6.5, BUN 30 H, Creatinine 1.09 H, Estimated Creat Clear 27, Estimated GFR 47 L, Est GFR ( Amer) 57 L, Glucose 197 H, Calcium 8.3 L, Total Bilirubin 0.4, AST 12 L, ALT 24, Alkaline Phosphatase 63, Total Protein 5.7 L, Albumin 2.7 L, Globulin 3.0, Albumin/Globulin Ratio 0.9 L I & O for Last 24 hours: Intake & Output 06/28/19 06/29/19 06/30/19 08/09/19 11:59 11:59 11:59 11:59 Intake Total 240 / 240 440 / 440 840 / 840 480 / 480 Output Total 1000 / 1000 500 / 500 950 / 950 650 / 650 Balance -760 / -760 -60 / -60 -110 / -110 -170 / -170 Weight 101 lb 101 lb 7 oz 103 lb 1 oz 105 lb 9.6 oz - Constitutional no acute distress - *Routine Respiratory Exam Present: diminished air movement - *Routine Cardiovascular Exam Present: RRR - *Routine Abdominal Exam Present: soft, normoactive bowel sounds, distended. Absent: tenderness - *Routine Extremities Exam Present: edema (bilateral LE's). Absent: cyanosis, clubbing - *Routine Skin Exam Present: warm. Absent: rash - *Routine Neurological Exam Present: alert, oriented X3 Assessment and Plan (1) COPD (chronic obstructive pulmonary disease) Current visit: Yes Status: Acute Qualifiers: COPD type: unspecified COPD Qualified Code(s): J44.9 - Chronic obstructive pulmonary disease, unspecified Category: Medical Code(s): J44.9 - Chronic obstructive pulmonary disease, unspecified (2) Community acquired pneumonia Current visit: Yes Status: Acute Qualifiers: Laterality: left Lung location: lower lobe of lung Qualified Code(s): J18.1 - Lobar pneumonia, unspecified organism Category: Medical Code(s): J18.9 - Pneumonia, unspecified organism (3) Hypothyroidism Current visit: No Status: Chronic Qualifiers: Hypothyroidism type: unspecified Qualified Code(s): E03.9 - Hypothyroidism, unspecified Category: Medical Code(s): E03.9 - Hypothyroidism, unspecified (4) Low TSH level Current visit: Yes Status: Acute Category: Medical Code(s): R79.89 - Other specified abnormal findings of blood chemistry - Assessment and plan all Dx Assessment and Plan for all problems:: Patient's Lasix dose was increased yesterday. Weight is still up 2 pounds today. She still has swelling. Will discuss further care with Dr. Rodriguez.
--- NOTE | 2019-07-01 10:39 | Progress Note ---
Internal Medicine - PN: Subj *Date: 07/01/19 *Time: 10:38 Exam Vital signs and Labs for Last 24 Hours: Temp Pulse Resp BP Pulse Ox 98.0 F 67 19 160/59 H 98 07/01/19 08:00 07/01/19 08:00 07/01/19 08:00 07/01/19 08:00 07/01/19 08:00 Laboratory Results - last 24 hr 06/30/19 09:30: Total Counted 100, Neutrophils % (Manual) 86 H, Band Neutrophils % 9.0 H, Lymphocytes % (Manual) 2 L, Monocytes % (Manual) 3, Platelet Estimate Normal, RBC Morphology Normal I & O for Last 24 hours: Intake & Output 06/28/19 06/29/19 06/30/19 07/01/19 23:59 23:59 23:59 23:59 Intake Total 320 / 320 1200 / 1200 480 / 480 360 / 360 Output Total 800 / 800 1000 / 1000 550 / 550 250 / 250 Balance -480 / -480 200 / 200 -70 / -70 110 / 110 Weight 45.813 kg 46.011 kg 46.748 kg 47.899 kg Assessment and Plan (1) COPD (chronic obstructive pulmonary disease) Current visit: Yes Status: Acute Qualifiers: COPD type: unspecified COPD Qualified Code(s): J44.9 - Chronic obstructive pulmonary disease, unspecified Category: Medical Code(s): J44.9 - Chronic obstructive pulmonary disease, unspecified (2) Community acquired pneumonia Current visit: Yes Status: Acute Qualifiers: Laterality: left Lung location: lower lobe of lung Qualified Code(s): J18.1 - Lobar pneumonia, unspecified organism Category: Medical Code(s): J18.9 - Pneumonia, unspecified organism (3) Hypothyroidism Current visit: No Status: Chronic Qualifiers: Hypothyroidism type: unspecified Qualified Code(s): E03.9 - Hypothyroidism, unspecified Category: Medical Code(s): E03.9 - Hypothyroidism, unspecified (4) Low TSH level Current visit: Yes Status: Acute Category: Medical Code(s): R79.89 - Other specified abnormal findings of blood chemistry The patient's infection will respond to the chosen ABx?: Yes Is the patient receiving the right drug, dose, and route?: Yes Could a more targeted ABx be ordered?: No (PATIENT CULTURES NEGATIVE AND AFEBRILE)
--- NOTE | 2019-07-01 10:47 | Consult Report ---
History of Present Illness Consult date: 07/01/19 Requesting physician: Ariadne Rodriguez Consult reason: shortness of breath Chief complaint: SOA Additional Medical History:: 1. History of atrial fibrillation with a rapid ventricular response, 2015, treated successfully with IV and p.o. beta-obi therapy A. History of anticoagulation therapy discontinued due to GI bleed B. Echocardiogram, 09/2015, left atrial size 4.7 cm with normal EF 2. Centrilobular emphysema/COPD with home oxygen use A. Tobacco use stopped 2000. Greater than [id number] history B. Right upper lobe mass on CT the chest oh 06/2018 3. Hypertension 4. GERD 5. History of TIAs approximately 2011 6. Coronary artery disease with coronary artery calcifications noted on CT of the chest, 06/2018 A. There is diffuse atherosclerotic calcification of the aorta and great vessels. Coronary artery calcifications are present. There is mild valve annular calcification. Normal heart size. No mediastinal or hilar mass or adenopathy 7. Chronic anemia 8. Chronic kidney disease, stage II with creatinine History of present illness: 89-year-old white female admitted for shortness of breath. Patient has been treated for pneumonia but remains short of breath despite treatment for mild CHF. Chest x-rays revealed left-sided effusion and consolidation. Mild vascular engorgement noted. Patient's activity is limited due to her chronic COPD with an acute exacerbation of her limitations in the last week and even in the hospital she has noticed more short of breath just walking to the bathroom. Pulmonary saw the patient earlier this week with recommendation for consideration of thoracentesis versus palliative care. Patient does not want invasive treatment and states if it is my time and ready to go. Cardiology consulted for evaluation of shortness of breath congestive heart failure. EKG shows sinus rhythm with poor R wave progression anteriorly but no acute ST segment changes. [facility] History Medical History: Reports:: Arrhythmia, Atherosclerotic Heart Disease, Atrial Fibrillation, Chronic Obstructive Pulmonary Disease (COPD), Coronary Artery Disease, Gastroesophageal Reflux Disease(GERD), Home Oxygen, Hypertension, Lung Disease, Transient Ischemic Attacks (TIA) Denies:: Cancer, Diabetes Mellitus Type 1, Diabetes Mellitus Type 2, Internal Pacemaker, MRSA, Seizures *Have you ever received a pneumonia vaccine?: No *Have you received a flu vaccine this season?: No Other Medical History: Reports: Anemia, Arthritis, Hypothyroidism, Thyroid Disease, Other (Angina, Kyphosis). Denies: Blood Transfusion Reaction Other Surgeries: No: Pacemaker Amputation: No Fractures: Yes (COMPRESSION FX BACK) - *Social History Educational Level: Attended College Smoking Status: Former smoker # Packs/Day (cigarettes): 1 #Yrs smoked (if former smoker): 52 Smoking End Date: 11/23/2000 Alcohol Intake: never *Occupational Status:: retired Housing: house Household Members: family *Travel in the last 8 weeks: None - Psychiatric History Expresses thoughts of harming self/others: None Suicide Plan Description: No Plan Family Hx:: Coronary Artery Disease, Diabetes Meds Home Medications Medication Instructions Recorded Confirmed Type Aspirin [Aspirin 81mg chewable 81 mg PO DAILY 06/30/18 06/21/19 History tab] Bifidobacterium Infantis [Align] 4 mg PO DAILY 06/30/18 06/21/19 History Bisoprolol Fumarate [Zebeta 5mg 2.5 mg PO BID 06/30/18 06/22/19 History tablet] Ferrous Gluconate [Ferrous 324 mg PO DAILY 06/30/18 06/21/19 History Gluconate 324mg Tab] Furosemide [Lasix 40mg tablet] 40 mg PO DIRECTED 06/30/18 06/22/19 History Isosorbide Mononitrate [Imdur 30mg 60 mg PO DAILY 06/30/18 06/22/19 History ER tablet] Magnesium Oxide [Mag-Ox 400mg Tab] 400 mg PO HS 06/30/18 06/21/19 History Nitroglycerin 0.4 mg SL NEEDED PRN 06/30/18 06/21/19 History Polyethylene Glycol 3350 [Gavilax] 17 gm PO DAILY 06/30/18 06/21/19 History Spironolactone [Spironolactone 25 mg PO DAILY 06/30/18 06/21/19 History 25mg Tablet] dilTIAZem HCl [Diltiazem 240mg 240 mg PO DAILY 06/30/18 06/21/19 History 24Hr ER Cap] Levothyroxine Sodium [Synthroid 100 mcg PO DAILYDM 07/16/18 06/21/19 History 100mcg (0.1mg) tablet] Metoclopramide HCl [Reglan 5mg 2.5 mg PO AC 07/16/18 06/21/19 History Tablet] Sucralfate [Carafate 1gm/10mL 10 ml PO ACHS 07/16/18 06/22/19 History Susp] Albuterol Sulfate [Albuterol HFA 1 puff IH Q4HP PRN 07/20/18 06/21/19 History Inhaler] Fluticasone/Umeclidin/Vilanter 1 each IH DAILY 07/20/18 06/21/19 History [Trelegy Ellipta 100-62.5-25] Sennosides/Docusate Sodium [Stool 1 each PO DAILY 07/20/18 06/21/19 History Softener-Laxative Tablet] Roflumilast [Daliresp] 250 mcg PO DAILY 06/21/19 06/21/19 History Loratadine [Allergy] 10 mg PO DAILY 06/22/19 06/22/19 History Losartan Potassium 25 mg PO DAILY 06/22/19 06/22/19 History Omeprazole [Omeprazole 40mg 40 mg PO DAILY 06/22/19 06/22/19 History Capsule] Potassium Chloride [Micro-K 10mEq 20 meq PO DAILY 06/22/19 06/22/19 History cap] Allergies Allergy/AdvReac Type Severity Reaction Status Date / Time diatrizoate sodium Allergy Severe S-SWELLS-OR Verified 07/20/18 13:25 [From HYPAQUE] AL/THROAT Influenza Virus Vaccines Allergy Intermediate I-ITCHING Verified 07/20/18 13:25 [INFLUENZA VIRUS VACCINES] levofloxacin [From LEVAQUIN] Allergy Intermediate I-RASH Verified 07/20/18 13:25 codeine [CODEINE] Allergy Mild "HEADACHE" Verified 07/20/18 13:25 Sulfa (Sulfonamide Allergy Mild NA-NAUSEA/V Verified 07/20/18 13:25 Antibiotics) OMITING [SULFA (SULFONAMIDE ANTIBIOTICS)] mometasone furoate Allergy Unknown Verified 07/20/18 13:25 [From NASONEX] Review of Systems - *Cardiovascular Reports chest pain with activity, Reports shortness of breath, Reports shortness of breath with activity - *Respiratory Reports cough, Reports shortness of breath, Reports shortness of breath with activity - *Gastrointestinal Denies abdominal pain, Denies nausea, Denies vomiting - *Genitourinary Denies blood in urine - *Musculoskeletal Denies joint pain, Denies back pain - *Neurologic Reports dizziness, Reports weakness Exam Vital signs and Labs for Last 24 Hours: Temp Pulse Resp BP Pulse Ox 98.0 F 67 19 160/59 H 98 07/01/19 08:00 07/01/19 08:00 07/01/19 08:00 07/01/19 08:00 07/01/19 08:00 Laboratory Results - last 24 hr 06/30/19 09:30: Total Counted 100, Neutrophils % (Manual) 86 H, Band Neutrophils % 9.0 H, Lymphocytes % (Manual) 2 L, Monocytes % (Manual) 3, Platelet Estimate Normal, RBC Morphology Normal I & O for Last 24 hours: Intake & Output 06/28/19 06/29/19 06/30/19 07/01/19 11:59 11:59 11:59 11:59 Intake Total 240 / 240 440 / 440 840 / 840 840 / 840 Output Total 1000 / 1000 500 / 500 950 / 950 650 / 650 Balance -760 / -760 -60 / -60 -110 / -110 190 / 190 Weight 101 lb 101 lb 7 oz 103 lb 1 oz 105 lb 9.6 oz - *Routine HEENT Exam Head: Present: normocephalic Eye: Present: EOMI, PERRL ENT: Present: mucous membranes moist - *Routine Neck Exam Present: supple. Absent: JVD, carotid bruit - *Routine Respiratory Exam Present: decreased breath sounds, diminished air movement. Absent: accessory muscle use, rales, rhonchi, wheezes - *Routine Cardiovascular Exam Present: RRR. Absent: murmur, gallop, rubs - *Routine Abdominal Exam Present: soft. Absent: tenderness, distended, guarding - *Routine Extremities Exam Present: edema, tenderness. Absent: calf tenderness - *Routine Neurological Exam Present: alert, oriented X3, moving all extremities Assessment and Plan (1) COPD (chronic obstructive pulmonary disease) Current visit: Yes Status: Acute Qualifiers: COPD type: unspecified COPD Qualified Code(s): J44.9 - Chronic obstructive pulmonary disease, unspecified Category: Medical Code(s): J44.9 - Chronic obstructive pulmonary disease, unspecified (2) Community acquired pneumonia Current visit: Yes Status: Acute Qualifiers: Laterality: left Lung location: lower lobe of lung Qualified Code(s): J18.1 - Lobar pneumonia, unspecified organism Category: Medical Code(s): J18.9 - Pneumonia, unspecified organism (3) Hypothyroidism Current visit: No Status: Chronic Qualifiers: Hypothyroidism type: unspecified Qualified Code(s): E03.9 - Hypothyroidism, unspecified Category: Medical Code(s): E03.9 - Hypothyroidism, unspecified (4) Low TSH level Current visit: Yes Status: Acute Category: Medical Code(s): R79.89 - Other specified abnormal findings of blood chemistry (5) CHF (congestive heart failure) Current visit: Yes Status: Acute Category: Medical Code(s): I50.9 - Heart failure, unspecified - Assessment and plan all Dx Assessment and Plan for all problems:: 1. We will obtain an echocardiogram to evaluate left ventricular size and function and to rule out pericardial effusion. If echocardiogram shows no s ignificant change from 2015 study then would recommend consideration for ultrasound-guided thoracentesis. 2. It appears the patient may be getting both home dose of ARB as well as hospital substitute of Avapro. Will discontinue Avapro. Discussed with pharmacy. 3. Continue combination of bisoprolol and diltiazem for rate and rhythm control with history of atrial fibrillation in the past. EKGs both shown sinus rhythm during this hospitalization. Diltiazem may be contributing to the patient's lower extremity edema. 4. Further recommendations to follow pending above.
--- NOTE | 2019-07-01 13:51 | Cardiology Report ---
PROCEDURE: 2-D M-mode and color Doppler study INDICATIONS FOR THE TEST: Chest pain COPD+ Heart Murmur Tobacco Smoking+ Palpitations Fatigue Syncope Edema Hypertension+Diabetes Mellitus Rheumatic Fever SOB+GUPTA Obesity Hyperlipidemia Family History HD Additional History PNEUMONIA, PLEURAL EFFUSION,A-FIB,HOME O2 PATIENT INFORMATION HEIGHT: 59 WEIGHT:105 GENDER: Female B/P:176/67 2-D/M-MODE INTERPRETATION: 2-D MEASUREMENTS OBSERVED VALUES IN CMS Right Ventricular Dimension (RVDd) 2.2 Interventricular Septum (Thickness)(IVsd) 0.9 Left Ventricular Internal Dimensions(LVIDd) 3.5 Left Ventricular Posterior Wall (Thickness)(LVPWd) 1.3 Aortic Root 2.7 Aortic Cusp Separation 1.6 Left Atrial Dimensions (LAD) 4.3 2D 1. Left atrium is moderately enlarged, left ventricle is normal size, mild concentric left ventricular hypertrophy, hyperdynamic left ventricular systolic function, visually estimated ejection fraction over 65% with no regional wall motion abnormality, septum has sigmoid configuration. 2. The right atrium and right ventricle are normal size and contractility. 3. The aortic valve is thickened and calcified, leaflet continue to display good mobility, morphologically there is no aortic stenosis. 4. The mitral valve has mitral calcification, leaflets are minimally thickened, there is systolic anterior motion of the chordal structures seen. 5. The tricuspid valve is grossly normal. 6. The pulmonic valve is poorly visualized. 7. No significant pericardial effusion noted. 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 Mild mitral and tricuspid regurgitation, tricuspid regurgitation jet velocity is inadequate for calculation of the right ventricular systolic pressure, diastolic parameters are inconclusive. CONCLUSION: 1. 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 Morphologically there is no aortic stenosis. 2. Mild mitral and tricuspid regurgitation 3. No significant pericardial effusion noted.
[2019-07-02 07:19] LABS: Hematocrit 29.2 % (37.0-47.0); Hemoglobin 9.7 g/dL (12.2-16.2); Lymphocytes # 0.3 K/mm3 (0.7-4.5); Lymphocytes % 2.2 % (10-50); Mean Corpuscular HGB Conc 33.3 g/dL (31.8-35.4); Mean Corpuscular Volume 96.2 fl (81-99); Mean Platelet Volume 7.3 fl (7.4-10.4); Monocytes # 0.5 K/mm3 (0.1-1.0); Monocytes % 3.8 % (1.7-9.3); Neutrophils # 12.3 K/mm3 (1.8-7.8); Neutrophils % 93.9 % (37.0-80.0); Platelet Count 248 K/mm3 (142-424); Red Blood Count 3.03 M/mm3 (4.20-5.40); White Blood Count 13.1 K/mm3 (4.8-10.8)
[2019-07-02 07:30] LABS: Anion Gap 5.3 mEq/L (5-15); Calcium 8.2 mg/dL (8.5-10.1)
[2019-07-02 10:15] LABS: Lymphocytes % 1 % (10-50); Monocytes % 2 % (2-9); Neutrophils % 97 % (42-76); RBC Morphology Normal; Total Cells Counted 100
[2019-07-03 07:33] LABS: Hematocrit 29.8 % (37.0-47.0); Hemoglobin 9.2 g/dL (12.2-16.2); Lymphocytes # 0.4 K/mm3 (0.7-4.5); Mean Corpuscular Volume 96.5 fl (81-99); Mean Platelet Volume 7.9 fl (7.4-10.4); Monocytes # 0.8 K/mm3 (0.1-1.0); Monocytes % 4.6 % (1.7-9.3); Neutrophils # 17.2 K/mm3 (1.8-7.8); Neutrophils % 93.3 % (37.0-80.0); Platelet Count 264 K/mm3 (142-424); Red Blood Count 3.09 M/mm3 (4.20-5.40); White Blood Count 18.4 K/mm3 (4.8-10.8)
[2019-07-03 08:05] LABS: Albumin Level 2.5 gm/dL (3.4-5.0); Anion Gap 7.5 mEq/L (5-15); Bilirubin,Total 0.3 mg/dL (0.2-1.0); Calcium 8.3 mg/dL (8.5-10.1); Globulin 2.5 gm/dl (1.3-3.2)
[2019-07-03 08:32] LABS: Monocytes % 1 % (2-9); Neutrophils % 99 % (42-76); Total Cells Counted 100
[2019-07-03 08:33] LABS: RBC Morphology Normal
--- NOTE | 2019-07-03 11:33 | Progress Note ---
Internal Medicine - PN: Subj *Date: 07/03/19 *Time: 10:30 Interval history: Patient doing well today. She mentions that her breathing treatments are helping her. However she still feels tight in her chest at times. Exam Vital signs and Labs for Last 24 Hours: Temp Pulse Resp BP Pulse Ox 97.6 F 66 24 156/63 H 96 07/03/19 08:34 07/03/19 08:56 07/03/19 08:34 07/03/19 08:34 07/03/19 08:56 Laboratory Results - last 24 hr 07/03/19 06:15: WBC 18.4 H D, RBC 3.09 L, Hgb 9.2 L, Hct 29.8 L, MCV 96.5, MCH 29.9, MCHC 31.0 L, RDW 16.0, Plt Count 264, MPV 7.9, Neut % (Auto) 93.3 H, Lymph % (Auto) 2.0 L, [place] % (Auto) 4.6, Eos % (Auto) 0.0 L, Baso % (Auto) 0.0 L, Neut # (Auto) 17.2 H, Lymph # (Auto) 0.4 L, [place] # (Auto) 0.8, Eos # (Auto) 0.0, Baso # (Auto) 0.0, Total Counted 100, Neutrophils % (Manual) 99 H, Monocytes % (Manual) 1 L, Platelet Estimate Normal, RBC Morphology Normal 07/03/19 06:15: Sodium 136, Potassium 4.5 D, Chloride 97 L, Carbon Dioxide 36 H , Anion Gap 7.5, BUN 34 H, Creatinine 1.06 H, Estimated Creat Clear 28, Estimated GFR 49 L, Est GFR ( Amer) 59, Glucose 135 H, Calcium 8.3 L, Total Bilirubin 0.3, AST 15, ALT 25, Alkaline Phosphatase 57, Total Protein 5.0 L, Albumin 2.5 L, Globulin 2.5, Albumin/Globulin Ratio 1.0 L I & O for Last 24 hours: Intake & Output 06/30/19 07/01/19 07/02/19 07/03/19 11:59 11:59 11:59 11:59 Intake Total 840 / 840 840 / 840 960 / 960 840 / 840 Output Total 950 / 950 650 / 650 350 / 350 Balance -110 / -110 190 / 190 610 / 610 840 / 840 Weight 103 lb 1 oz 105 lb 9.6 oz 102 lb 4 oz 104 lb 8 oz - *Routine HEENT Exam Head: Present: normocephalic Eye: Present: EOMI, PERRL ENT: Present: mucous membranes moist - *Routine Neck Exam Present: supple. Absent: lymphadenopathy - *Routine Respiratory Exam Present: wheezes (Occasional expiratory wheezes noted bilaterally) - *Routine Cardiovascular Exam Present: RRR - *Routine Abdominal Exam Present: soft, normoactive bowel sounds. Absent: tenderness - *Routine Extremities Exam Present: edema (1+ peripheral edema noted bilaterally on lower legs up to ankle). Absent: cyanosis, clubbing - *Routine Skin Exam Present: warm. Absent: rash - *Routine Neurological Exam Present: alert, oriented X3 Assessment and Plan (1) COPD (chronic obstructive pulmonary disease) Current visit: Yes Status: Acute Qualifiers: COPD type: unspecified COPD Qualified Code(s): J44.9 - Chronic obstructive pulmonary disease, unspecified Category: Medical Code(s): J44.9 - Chronic obstructive pulmonary disease, unspecified (2) Community acquired pneumonia Current visit: Yes Status: Acute Qualifiers: Laterality: left Lung location: lower lobe of lung Qualified Code(s): J18.1 - Lobar pneumonia, unspecified organism Category: Medical Code(s): J18.9 - Pneumonia, unspecified organism (3) Hypothyroidism Current visit: No Status: Chronic Qualifiers: Hypothyroidism type: unspecified Qualified Code(s): E03.9 - Hypothyroidism, unspecified Category: Medical Code(s): E03.9 - Hypothyroidism, unspecified (4) Low TSH level Current visit: Yes Status: Acute Category: Medical Code(s): R79.89 - Other specified abnormal findings of blood chemistry (5) CHF (congestive heart failure) Current visit: Yes Status: Acute Category: Medical Code(s): I50.9 - Heart failure, unspecified - Assessment and plan all Dx Assessment and Plan for all problems:: We will continue current management. Will increase neb treatment frequency for now. Reiterated to patient that diuresis is contraindicated given her outflow obstruction. We will continue to treat her as course dictates.
--- NOTE | 2019-07-04 07:25 | Progress Note ---
Subjective Date: 07/04/19 Time: 07:22 Principal diagnosis: SOA Interval history: 89 yo WF in bedside chair eating breakfast in NAD. Still with SOA and conversational dyspnea. Denies any chest pain. Still with edema of arms and legs. Telemetry shows sinus rhythm with CVR. Exam Vital signs and Labs for Last 24 Hours: Temp Pulse Resp BP Pulse Ox 98.0 F 70 17 136/62 96 07/04/19 04:00 07/04/19 06:23 07/04/19 04:00 07/04/19 04:00 07/04/19 06:23 Laboratory Results - last 24 hr 07/03/19 06:15: WBC 18.4 H D, RBC 3.09 L, Hgb 9.2 L, Hct 29.8 L, MCV 96.5, MCH 29.9, MCHC 31.0 L, RDW 16.0, Plt Count 264, MPV 7.9, Neut % (Auto) 93.3 H, Lymph % (Auto) 2.0 L, [place] % (Auto) 4.6, Eos % (Auto) 0.0 L, Baso % (Auto) 0.0 L, Neut # (Auto) 17.2 H, Lymph # (Auto) 0.4 L, [place] # (Auto) 0.8, Eos # (Auto) 0.0, Baso # (Auto) 0.0, Total Counted 100, Neutrophils % (Manual) 99 H, Monocytes % (Manual) 1 L, Platelet Estimate Normal, RBC Morphology Normal 07/03/19 06:15: Sodium 136, Potassium 4.5 D, Chloride 97 L, Carbon Dioxide 36 H , Anion Gap 7.5, BUN 34 H, Creatinine 1.06 H, Estimated Creat Clear 28, Estimated GFR 49 L, Est GFR ( Amer) 59, Glucose 135 H, Calcium 8.3 L, Total Bilirubin 0.3, AST 15, ALT 25, Alkaline Phosphatase 57, Total Protein 5.0 L, Albumin 2.5 L, Globulin 2.5, Albumin/Globulin Ratio 1.0 L I & O for Last 24 hours: Intake & Output 07/01/19 07/02/19 07/03/19 07/04/19 11:59 11:59 11:59 11:59 Intake Total 840 / 840 960 / 960 840 / 840 360 / 360 Output Total 650 / 650 350 / 350 Balance 190 / 190 610 / 610 840 / 840 360 / 360 Weight 105 lb 9.6 oz 102 lb 4 oz 104 lb 8 oz 105 lb 8 oz - *Routine HEENT Exam Head: Present: normocephalic Eye: Present: EOMI, PERRL ENT: Present: mucous membranes moist - *Routine Respiratory Exam Present: decreased breath sounds. Absent: accessory muscle use, rales, rhonchi, wheezes - *Routine Cardiovascular Exam Present: RRR, murmur. Absent: gallop, rubs - *Routine Abdominal Exam Present: soft. Absent: tenderness, distended, guarding - *Routine Extremities Exam Present: edema. Absent: calf tenderness - *Routine Neurological Exam Present: alert, oriented X3, moving all extremities Progress Note: A&P (1) COPD (chronic obstructive pulmonary disease) Status: Acute Current Visit: Yes (2) Community acquired pneumonia Status: Acute Current Visit: Yes (3) Hypothyroidism Status: Chronic Current Visit: No (4) Low TSH level Status: Acute Current Visit: Yes (5) CHF (congestive heart failure) Status: Acute Current Visit: Yes (6) Left ventricular outflow tract obstruction Status: Acute Current Visit: Yes (7) HHD (hypertensive heart disease) Status: Acute Current Visit: Yes Assessment and Plan for All Diagnoses:: 1. Continue both beta obi and diltiazem for HHD/LVOT obstruction. Lasix stopped and will also stop aldactone. 2. Pleural effusion and consolidation on left side. Consideration for u/s guided thoracentesis recommended. 3. Will plan to repeat echo in 2-3 months to re-assess LVOT obstruction.
--- NOTE | 2019-07-04 08:36 | Progress Note ---
Internal Medicine - PN: Subj *Date: 07/04/19 *Time: 08:33 Interval history: Patient states she cannot breathe. It is been this way throughout the weekend. She is too weak to cough much. Her legs have been swelling in her left leg is weeping. She denies chest pain. She is eating poorly. Bowels are moving. She does have gas discomfort. Her kidneys are also functioning. She has been out of bed and sitting in the chair this morning. Exam Vital signs and Labs for Last 24 Hours: Temp Pulse Resp BP Pulse Ox 97.7 F 83 16 145/56 H 99 07/04/19 07:49 07/04/19 07:49 07/04/19 07:49 07/04/19 07:49 07/04/19 07:49 Laboratory Results - last 24 hr 07/03/19 06:15: Total Counted 100, Neutrophils % (Manual) 99 H, Monocytes % (Manual) 1 L, Platelet Estimate Normal, RBC Morphology Normal 07/03/19 06:15: Sodium 136, Potassium 4.5 D, Chloride 97 L, Carbon Dioxide 36 H , Anion Gap 7.5, BUN 34 H, Creatinine 1.06 H, Estimated Creat Clear 28, Estimated GFR 49 L, Est GFR ( Amer) 59, Glucose 135 H, Calcium 8.3 L, Total Bilirubin 0.3, AST 15, ALT 25, Alkaline Phosphatase 57, Total Protein 5.0 L, Albumin 2.5 L, Globulin 2.5, Albumin/Globulin Ratio 1.0 L I & O for Last 24 hours: Intake & Output 07/01/19 07/02/19 07/03/19 07/04/19 11:59 11:59 11:59 11:59 Intake Total 840 / 840 960 / 960 840 / 840 720 / 720 Output Total 650 / 650 350 / 350 Balance 190 / 190 610 / 610 840 / 840 720 / 720 Weight 105 lb 9.6 oz 102 lb 4 oz 104 lb 8 oz 105 lb 8 oz - Constitutional no acute distress Comments: Sitting up in comfort chair at bedside trying to eat her breakfast. Dyspnea noted. Daughter is at bedside with her. - *Routine Respiratory Exam Present: diminished air movement (Bilaterally posteriorly) - *Routine Cardiovascular Exam Present: irregular rhythm - *Routine Abdominal Exam Present: soft, normoactive bowel sounds - *Routine Extremities Exam Present: edema (Bilateral leg edema. Weeping noted in left lower extremity. Scattered scabs on both lower legs.) - *Routine Neurological Exam Present: alert, oriented X3 Assessment and Plan (1) COPD (chronic obstructive pulmonary disease) Current visit: Yes Status: Acute Qualifiers: COPD type: unspecified COPD Qualified Code(s): J44.9 - Chronic obstructive pulmonary disease, unspecified Category: Medical Code(s): J44.9 - Chronic obstructive pulmonary disease, unspecified (2) Community acquired pneumonia Current visit: Yes Status: Acute Qualifiers: Laterality: left Lung location: lower lobe of lung Qualified Code(s): J18.1 - Lobar pneumonia, unspecified organism Category: Medical Code(s): J18.9 - Pneumonia, unspecified organism (3) Hypothyroidism Current visit: No Status: Chronic Qualifiers: Hypothyroidism type: unspecified Qualified Code(s): E03.9 - Hypothyroidism, unspecified Category: Medical Code(s): E03.9 - Hypothyroidism, unspecified (4) Low TSH level Current visit: Yes Status: Acute Category: Medical Code(s): R79.89 - Other specified abnormal findings of blood chemistry (5) CHF (congestive heart failure) Current visit: Yes Status: Acute Category: Medical Code(s): I50.9 - Heart failure, unspecified (6) Left ventricular outflow tract obstruction Current visit: Yes Status: Acute Category: Medical Code(s): Q24.8 - Other specified congenital malformations of heart (7) HHD (hypertensive heart disease) Current visit: Yes Status: Acute Category: Medical Code(s): I11.9 - Hypertensive heart disease without heart failure (8) Bilateral pleural effusion Current visit: Yes Status: Acute Category: Medical Code(s): J90 - Pleural effusion, not elsewhere classified - Assessment and plan all Dx Assessment and Plan for all problems:: We will restart Lasix. Will continue to monitor renal function.
[2019-07-05 07:15] LABS: Eosinophils % 0.1 % (0.1-12.0); Hematocrit 27.3 % (37.0-47.0); Hemoglobin 8.7 g/dL (12.2-16.2); Lymphocytes # 0.2 K/mm3 (0.7-4.5); Lymphocytes % 1.2 % (10-50); Mean Corpuscular HGB Conc 31.9 g/dL (31.8-35.4); Mean Corpuscular Volume 96.1 fl (81-99); Mean Platelet Volume 7.3 fl (7.4-10.4); Monocytes # 0.6 K/mm3 (0.1-1.0); Monocytes % 3.5 % (1.7-9.3); Neutrophils # 16.9 K/mm3 (1.8-7.8); Neutrophils % 95.2 % (37.0-80.0); Platelet Count 229 K/mm3 (142-424); Red Blood Count 2.84 M/mm3 (4.20-5.40); Red Cell Distribution Width 16.2 % (11.5-17.5); White Blood Count 17.7 K/mm3 (4.8-10.8)
[2019-07-05 07:23] LABS: Anion Gap 4.2 mEq/L (5-15); Calcium 8.2 mg/dL (8.5-10.1)
--- NOTE | 2019-07-05 08:16 | Progress Note ---
Internal Medicine - PN: Subj *Date: 07/05/19 *Time: 08:13 Interval history: Patient states she is not Doing well. Her breathing may be slightly better. She is using her bedside hand-held inhaler and used it once during the night. She states her abdomen feels full. She had a small soft stool this morning. She continues to void without difficulty. She does feel very weak. She simply cannot eat much. Patient did express to cardiology that she wished to be a DNR. Laboratory Tests 07/05/19 07/05/19 06:30 06:30 WBC 17.7 H RBC 2.84 L Hgb 8.7 L Hct 27.3 L Plt Count 229 Neut % (Auto) 95.2 H Lymph % (Auto) 1.2 L [place] % (Auto) 3.5 Sodium 123 L Potassium 4.2 Chloride 88 L Carbon Dioxide 35 H Anion Gap 4.2 L BUN 35 H Creatinine 1.02 Estimated Creat Clear 30 Estimated GFR 51 L Est GFR ( Amer) 62 Glucose 157 H Calcium 8.2 L Laboratory Tests 07/03/19 06:15 Sodium 136 Potassium 4.5 D Chloride 97 L Carbon Dioxide 36 H Anion Gap 7.5 BUN 34 H Creatinine 1.06 H Estimated Creat Clear 28 Estimated GFR 49 L Glucose 135 H Calcium 8.3 L Total Bilirubin 0.3 AST 15 ALT 25 Alkaline Phosphatase 57 Total Protein 5.0 L Albumin 2.5 L Globulin 2.5 Albumin/Globulin Ratio 1.0 L Exam Vital signs and Labs for Last 24 Hours: Temp Pulse Resp BP Pulse Ox 97.9 F 80 18 153/85 H 99 07/05/19 08:00 07/05/19 08:00 07/05/19 08:00 07/05/19 08:00 07/05/19 08:00 Laboratory Results - last 24 hr 07/05/19 06:30: WBC 17.7 H, RBC 2.84 L, Hgb 8.7 L, Hct 27.3 L, MCV 96.1, MCH 30.7, MCHC 31.9, RDW 16.2, Plt Count 229, MPV 7.3 L, Neut % (Auto) 95.2 H, Lymph % (Auto) 1.2 L, [place] % (Auto) 3.5, Eos % (Auto) 0.1, Baso % (Auto) 0.0 L, Neut # (Auto) 16.9 H, Lymph # (Auto) 0.2 L, [place] # (Auto) 0.6, Eos # (Auto) 0.0, Baso # (Auto) 0.0 07/05/19 06:30: Sodium 123 L, Potassium 4.2, Chloride 88 L, Carbon Dioxide 35 H, Anion Gap 4.2 L, BUN 35 H, Creatinine 1.02, Estimated Creat Clear 30, Estimated GFR 51 L, Est GFR ( Amer) 62, Glucose 157 H, Calcium 8.2 L I & O for Last 24 hours: Intake & Output 07/02/19 07/03/19 07/04/19 07/05/19 11:59 11:59 11:59 11:59 Intake Total 960 / 960 840 / 840 720 / 720 1570 / 1570 Output Total 350 / 350 750 / 750 Balance 610 / 610 840 / 840 720 / 720 820 / 820 Weight 102 lb 4 oz 104 lb 8 oz 105 lb 8 oz 107 lb 8 oz - Constitutional no acute distress Comments: Appears very fragile and dyspneic with conversation - *Routine Respiratory Exam Comments: Very diminished breath sounds bilaterally - *Routine Cardiovascular Exam Present: RRR - *Routine Abdominal Exam Present: soft, normoactive bowel sounds Comments: Abdomen is generally tender and seems somewhat distended but is soft. Bowel sounds are present. - *Routine Extremities Exam Comments: Less bilateral leg edema. Left lower leg with dry dressing. - *Routine Neurological Exam Present: alert, oriented X3 Assessment and Plan (1) COPD (chronic obstructive pulmonary disease) Current visit: Yes Status: Acute Qualifiers: COPD type: unspecified COPD Qualified Code(s): J44.9 - Chronic obstructive pulmonary disease, unspecified Category: Medical Code(s): J44.9 - Chronic obstructive pulmonary disease, unspecified (2) Community acquired pneumonia Current visit: Yes Status: Acute Qualifiers: Laterality: left Lung location: lower lobe of lung Qualified Code(s): J18.1 - Lobar pneumonia, unspecified organism Category: Medical Code(s): J18.9 - Pneumonia, unspecified organism (3) Hypothyroidism Current visit: No Status: Chronic Qualifiers: Hypothyroidism type: unspecified Qualified Code(s): E03.9 - Hypothyroidism, unspecified Category: Medical Code(s): E03.9 - Hypothyroidism, unspecified (4) Low TSH level Current visit: Yes Status: Acute Category: Medical Code(s): R79.89 - Other specified abnormal findings of blood chemistry (5) CHF (congestive heart failure) Current visit: Yes Status: Acute Category: Medical Code(s): I50.9 - Heart failure, unspecified (6) Left ventricular outflow tract obstruction Current visit: Yes Status: Acute Category: Medical Code(s): Q24.8 - Other specified congenital malformations of heart (7) HHD (hypertensive heart disease) Current visit: Yes Status: Acute Category: Medical Code(s): I11.9 - Hypertensive heart disease without heart failure (8) Bilateral pleural effusion Current visit: Yes Status: Acute Category: Medical Code(s): J90 - Pleural effusion, not elsewhere classified (9) Hyponatremia Current visit: Yes Status: Acute Category: Medical Code(s): E87.1 - Hypo- osmolality and hyponatremia (10) Anemia Current visit: Yes Status: Acute Category: Medical Code(s): D64.9 - Anemia, unspecified - Assessment and plan all Dx Assessment and Plan for all problems:: We will discuss further care with Dr. Rodriguez.
--- NOTE | 2019-07-05 08:25 | Progress Note ---
Subjective Date: 07/05/19 Time: 08:20 Principal diagnosis: SOA Interval history: 89-year-old white female in bed in no acute distress. Relates that her breathing is no better after diuretic yesterday. She relates that she is ready to sign a DNR and enter hospice on the time comes. She relates she does not want any heroic measures. Chest x-ray reviewed with Dr. Marcial who does not feel there is enough fluid in the pleural space to warrant thoracentesis. Exam Vital signs and Labs for Last 24 Hours: Temp Pulse Resp BP Pulse Ox 97.9 F 80 18 153/85 H 99 07/05/19 08:00 07/05/19 08:00 07/05/19 08:00 07/05/19 08:00 07/05/19 08:00 Laboratory Results - last 24 hr 07/05/19 06:30: WBC 17.7 H, RBC 2.84 L, Hgb 8.7 L, Hct 27.3 L, MCV 96.1, MCH 30.7, MCHC 31.9, RDW 16.2, Plt Count 229, MPV 7.3 L, Neut % (Auto) 95.2 H, Lymph % (Auto) 1.2 L, [place] % (Auto) 3.5, Eos % (Auto) 0.1, Baso % (Auto) 0.0 L, Neut # (Auto) 16.9 H, Lymph # (Auto) 0.2 L, [place] # (Auto) 0.6, Eos # (Auto) 0.0, Baso # (Auto) 0.0 07/05/19 06:30: Sodium 123 L, Potassium 4.2, Chloride 88 L, Carbon Dioxide 35 H, Anion Gap 4.2 L, BUN 35 H, Creatinine 1.02, Estimated Creat Clear 30, Estimated GFR 51 L, Est GFR ( Amer) 62, Glucose 157 H, Calcium 8.2 L I & O for Last 24 hours: Intake & Output 07/02/19 07/03/19 07/04/19 07/05/19 11:59 11:59 11:59 11:59 Intake Total 960 / 960 840 / 840 720 / 720 1570 / 1570 Output Total 350 / 350 750 / 750 Balance 610 / 610 840 / 840 720 / 720 820 / 820 Weight 102 lb 4 oz 104 lb 8 oz 105 lb 8 oz 107 lb 8 oz - *Routine HEENT Exam Head: Present: normocephalic Eye: Present: EOMI, PERRL ENT: Present: mucous membranes moist - *Routine Neck Exam Present: supple. Absent: JVD, carotid bruit - *Routine Respiratory Exam Present: decreased breath sounds, diminished air movement. Absent: accessory muscle use, rales, rhonchi, wheezes - *Routine Cardiovascular Exam Present: RRR, murmur. Absent: gallop, rubs - *Routine Extremities Exam Present: edema. Absent: calf tenderness - *Routine Neurological Exam Present: alert, oriented X3, moving all extremities Progress Note: A&P (1) COPD (chronic obstructive pulmonary disease) Status: Acute Current Visit: Yes (2) Community acquired pneumonia Status: Acute Current Visit: Yes (3) Hypothyroidism Status: Chronic Current Visit: No (4) Low TSH level Status: Acute Current Visit: Yes (5) CHF (congestive heart failure) Status: Acute Current Visit: Yes (6) Left ventricular outflow tract obstruction Status: Acute Current Visit: Yes (7) HHD (hypertensive heart disease) Status: Acute Current Visit: Yes (8) Bilateral pleural effusion Status: Acute Current Visit: Yes Assessment and Plan for All Diagnoses:: 1. 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 2. Edema, multifactorial, including low albumin and protein, chronic steroid use and diltiazem therapy. 3. Hypertensive heart disease with left ventricular outflow tract obstruction, recommend continuing combination of beta-obi and diltiazem therapy (switch to verapamil for better inotropic suppression of HOCM state). 4. Hyponatremia, with serum osmolality of 275 based on this AM labs. Recommend holding diuretics and giving low bolus of IVF 5. Discussed with Dr. Cooper and Dr. Rodriguez. Consideration of septal alcohol ablation therapy if no significant response to medical therapy.
[2019-07-05 09:23] LABS: Lymphocytes % 2 % (10-50); Monocytes % 2 % (2-9); Neutrophils % 94 % (42-76); Total Cells Counted 100
[2019-07-05 09:30] LABS: Hypochromasia 1+
--- NOTE | 2019-07-07 07:32 | Discharge Summary ---
General - General Admission date:: 06/22/19 Discharge date: 07/05/19 HPI HPI: Ms. Christopher is an 89-year-old female with a history of hypothyroidism, dysrhythmia, COPD on home oxygen, anemia, and ASCVD who presented to [facility] emergency room with progressive shortness of breath. She was seen in the office of [facility] on with the same and was started on Daliresp. She did feel somewhat better after her visit but then again began to experience progressive shortness of breath. She described an infrequent cough. She also had some nausea and vomiting and diarrhea. She also stated that she was very weak and dizzy and at times felt as if she was going to pass out. In the emergency room she was started on Rocephin and Zithromax IV and was given a bolus of Solu-Medrol 125 mg after which she did feel better. At the time of admission exam patient was sitting up in the bed with her grandson at her bedside eating her dinner. She stated she was comfortable except for some anterior chest pressure. Hospital Course Hospital Course: On admission patient was started on antibiotics and Xopenex neb treatments. TSH was low and Synthroid dosage was decreased. Initially the patient did feel better, was eating, but continued with dyspnea on exertion. Mucinex was added to her med regime. She continued to have diminished breath sounds and had a left pleural effusion. She did have very slow progress. She was started on incentive spirometry and flutter valve treatments. Blood and sputum cultures were negative. Her biggest complaint was being very weak. Blood pressure was elevated and Cardizem dosage was increased. MiraLAX was added for bowel regime and bowels did begin to move. She later complained of abdominal distention, cramping and fullness. Her renal function returned to normal. Dr. Garcia, school services officer, saw patient on 06/28/2019. He described her as being frail and discussed procedures such as bronchoscopy and ultrasound-guided thoracentesis for diagnosis of possible parapneumonic effusion or other cause. He recommended continuing with her antibiotics and due to her frailness possible palliative care. Patient did begin to feel worse and have an occasional productive cough of blood-tinged sputum. Her weight increased as did leg edema. Chest x-ray revealed a possible congestive heart failure and additional Lasix was added. Disposition was discussed and bed was available at [facility] although she was not well enough to be transferred. She did continue to retain fluid and Lasix was increased to twice daily and spironolactone was added. At this point weakness did worsen with her increase in weight and pulmonary status. She had an echocardiogram which indicated a left ventricular outflow obstruction without aortic stenosis or sclerosis. Cardiology was consulted and followed her the latter part of her stay with the following comments and recommendations: Echo revealed hyperdynamic ejection fraction with septal hypertrophy and LVOT obstruction. REcommend stopping lasix and Increase bisoprolol to 5 mg BID Continue diltiazem CD 360 mg daily SOA likely due to recent bilateral pneumonia with pleural effusion. Consider thoracentesis for symptomatic relief and diagnostic information. Later comments by cardiology: 1. 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 2. Edema, multifactorial, including low albumin and protein, chronic steroid use and diltiazem therapy. 3. Hypertensive heart disease with left ventricular outflow tract obstruction, recommend continuing combination of beta-obi and diltiazem therapy (switch to verapamil for better inotropic suppression of HOCM state). 4. Hyponatremia, with serum osmolality of 275 based on this AM labs. Recommend holding diuretics and giving low bolus of IVF 5. Discussed with Dr. Cooper and Dr. Rodriguez. Consideration of septal alcohol ablation therapy if no significant response to medical therapy. spoke extensively with Dr. Cooper and GI Buckner, cardiology, about options for treatment. Dr. Cooper presented possible interventions to include injection of the septum to decrease the size which would need to be done in another facility. Dr. Rodriguez also discussed these options with patient and her family. At this point the patient did not want any active interventions. She requested to be a DNR and comfort measures. She requested transfer to hospice facility. On 07/05/2019 [facility] via ambulance. She was to be cared for by the physician in this facility. Condition at transfer was stable and guarded. Objective Vital signs: Temp Pulse Resp BP Pulse Ox 98.4 F 75 19 145/62 H 100 07/05/19 11:24 07/05/19 11:24 07/05/19 11:24 07/05/19 11:24 07/05/19 11:24 Narrative: Exam Vital signs and Labs for Last 24 Hours: Temp Pulse Resp BP Pulse Ox 97.9 F 80 18 153/85 H 99 07/05/19 08:00 07/05/19 08:00 07/05/19 08:00 07/05/19 08:00 07/05/19 08:00 Laboratory Results - last 24 hr 07/05/19 06:30: WBC 17.7 H, RBC 2.84 L, Hgb 8.7 L, Hct 27.3 L, MCV 96.1, MCH 30.7, MCHC 31.9, RDW 16.2, Plt Count 229, MPV 7.3 L, Neut % (Auto) 95.2 H, Lymph % (Auto) 1.2 L, [place] % (Auto) 3.5, Eos % (Auto) 0.1, Baso % (Auto) 0.0 L, Neut # (Auto) 16.9 H, Lymph # (Auto) 0.2 L, [place] # (Auto) 0.6, Eos # (Auto) 0.0, Baso # (Auto) 0.0 07/05/19 06:30: Sodium 123 L, Potassium 4.2, Chloride 88 L, Carbon Dioxide 35 H, Anion Gap 4.2 L, BUN 35 H, Creatinine 1.02, Estimated Creat Clear 30, Estimated GFR 51 L, Est GFR ( Amer) 62, Glucose 157 H, Calcium 8.2 L I & O for Last 24 hours: Intake & Output 07/02/19 07/03/19 07/04/19 07/05/19 11:59 11:59 11:59 11:59 Intake Total 960 / 960 840 / 840 720 / 720 1570 / 1570 Output Total 350 / 350 750 / 750 Balance 610 / 610 840 / 840 720 / 720 820 / 820 Weight 102 lb 4 oz 104 lb 8 oz 105 lb 8 oz 107 lb 8 oz - Constitutional no acute distress Comments: Appears very fragile and dyspneic with conversation - *Routine Respiratory Exam Comments: Very diminished breath sounds bilaterally - *Routine Cardiovascular Exam Present: RRR - *Routine Abdominal Exam Present: soft, normoactive bowel sounds Comments: Abdomen is generally tender and seems somewhat distended but is soft. Bowel sounds are present. - *Routine Extremities Exam Comments: Less bilateral leg edema. Left lower leg with dry dressing. - *Routine Neurological Exam Present: alert, oriented X3 Results Completed studies during hospitalization [Text1]: 06/21/19 CXR IMPRESSION: COPD with chronic changes. No change in the pleural thickening in the left lung base and the spiculated opacity in the right upper lobe. CT of abdomen/pelvis 06/21/19 IMPRESSION: 1. Left lower lobe pneumonia/consolidation with small effusion with chronic changes in the right middle lobe and right lower lobe. 2. Otherwise stable CT abdomen pelvis with no significant change with multiple Nonemergent nonacute findings as described above CXR 06/23/19 IMPRESSION: 1. Left lower lobe consolidation with left-sided effusion with chronic changes. 2. Kyphosis of the thoracic spine with multi level compressive changes and prior vertebral plasty at T12 CXR 06/28/19 IMPRESSION: 1. Cardiomegaly with mild CHF. The pulmonary vessels appear somewhat more engorged than when compared to the previous exam. 2. No change left effusion with left lower lobe consolidation or volume loss and trace right effusion as well as he irregular opacity in the right upper lobe. CXR 07/01/19 IMPRESSION: Overall no significant change in the consolidation in the left lower lobe with small effusion, COPD, and trace right effusion ECHO 07/01/19 CONCLUSION: 1. 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 Morphologically there is no aortic stenosis. 2. Mild mitral and tricuspid regurgitation 3. No significant pericardial effusion noted. CXR 07/05/19 IMPRESSION: Mild CHF with persistent small left effusion, left basilar consolidation, and persistent parenchymal opacity in the right upper lobe Laboratory Tests 06/21/19 06/22/19 06/26/19 12:20 09:30 06:30 WBC 7.7 D RBC 3.09 L Hgb 9.5 L Hct 29.6 L MCV MCH MCHC RDW Plt Count 206 MPV 8.4 Neut % (Auto) 88.6 H Lymph % (Auto) 5.4 L Sussex % (Auto) 5.1 Sodium 135 L Potassium 4.1 Chloride 101 Carbon Dioxide 27 Anion Gap 11.1 BUN 29 H D Creatinine 1.38 H D Estimated Creat Clear Estimated GFR 36 L Glucose 193 H D Calcium 9.0 Total Protein Albumin Globulin Albumin/Globulin Ratio TSH 0.15 L D 06/26/19 07/02/19 07/03/19 06:30 06:04 06:15 WBC 13.1 H RBC 3.03 L Hgb 9.7 L Hct 29.2 L MCV 96.2 MCH 32.1 H MCHC RDW Plt Count 248 MPV Neut % (Auto) 93.9 H Lymph % (Auto) 2.2 L [place] % (Auto) 3.8 Sodium 137 Potassium 3.6 Chloride 101 Carbon Dioxide 31 Anion Gap BUN 35 H Creatinine 0.99 Estimated Creat Clear 28 Estimated GFR 53 L Glucose 133 H Calcium 8.9 Total Protein 5.0 L Albumin 2.5 L Globulin 2.5 Albumin/Globulin Ratio 1.0 L TSH 07/05/19 07/05/19 06:30 06:30 WBC 17.7 H RBC 2.84 L Hgb 8.7 L Hct 27.3 L MCV 96.1 MCH 30.7 MCHC 31.9 RDW 16.2 Plt Count 229 MPV 7.3 L Neut % (Auto) 95.2 H Lymph % (Auto) 1.2 L [place] % (Auto) Sodium 123 L Potassium 4.2 Chloride 88 L Carbon Dioxide 35 H Anion Gap 4.2 L BUN 35 H Creatinine 1.02 Estimated Creat Clear Estimated GFR 51 L Glucose 157 H Calcium 8.2 L Total Protein Albumin Globulin Albumin/Globulin Ratio TSH DS: Diagnosis - Discharge Diagnosis (1) COPD (chronic obstructive pulmonary disease) Status: Acute (2) Community acquired pneumonia Status: Acute (3) Hypothyroidism Status: Chronic (4) Low TSH level Status: Acute (5) CHF (congestive heart failure) Status: Acute (6) Left ventricular outflow tract obstruction Status: Acute (7) HHD (hypertensive heart disease) Status: Acute (8) Bilateral pleural effusion Status: Acute Discharge Plan - Patient Discharge Instructions ACTIVITY: Up in chair DIET: continue same diet Patient Instructions: DI for Chronic Obstructive Pulmonary Disease, DI for Pneumonia -- Adult, How to Prevent Falls - Follow up Plan Disposition: Hospice - Medical Facility Home Medications: Home Medications Medication Instructions Recorded Confirmed Type Aspirin [Aspirin 81mg chewable 81 mg PO DAILY 06/30/18 06/21/19 History tab] Bifidobacterium Infantis [Align] 4 mg PO DAILY 06/30/18 06/21/19 History Ferrous Gluconate [Ferrous 324 mg PO DAILY 06/30/18 06/21/19 History Gluconate 324mg Tab] Isosorbide Mononitrate [Imdur 30mg 60 mg PO DAILY 06/30/18 06/22/19 History ER tablet] Magnesium Oxide [Mag-Ox 400mg Tab] 400 mg PO HS 06/30/18 06/21/19 History Nitroglycerin 0.4 mg SL NEEDED PRN 06/30/18 06/21/19 History Polyethylene Glycol 3350 [Gavilax] 17 gm PO DAILY 06/30/18 06/21/19 History Spironolactone [Spironolactone 25 mg PO DAILY 06/30/18 06/21/19 History 25mg Tablet] Levothyroxine Sodium [Synthroid 100 mcg PO DAILYDM 07/16/18 06/21/19 History 100mcg (0.1mg) tablet] Metoclopramide HCl [Reglan 5mg 2.5 mg PO AC 07/16/18 06/21/19 History Tablet] Sucralfate [Carafate 1gm/10mL 10 ml PO ACHS 07/16/18 06/22/19 History Susp] Albuterol Sulfate [Albuterol HFA 1 puff IH Q4HP PRN 07/20/18 06/21/19 History Inhaler] Fluticasone/Umeclidin/Vilanter 1 each IH DAILY 07/20/18 06/21/19 History [Trelegy Ellipta 100-62.5-25] Sennosides/Docusate Sodium [Stool 1 each PO DAILY 07/20/18 06/21/19 History Softener-Laxative Tablet] Roflumilast [Daliresp] 250 mcg PO DAILY 06/21/19 06/21/19 History Losartan Potassium 25 mg PO DAILY 06/22/19 06/22/19 History Omeprazole [Omeprazole 40mg 40 mg PO DAILY 06/22/19 06/22/19 History Capsule] Potassium Chloride [Micro-K 10mEq 20 meq PO DAILY 07/31/19 07/31/19 History cap] Bisoprolol Fumarate [Zebeta 5mg 5 mg PO BID #60 tab 07/05/19 Rx tablet] Non Formulary [Pt's Own Medication] 1 each INHALATION DAILY each 07/05/19 Rx Non Formulary [Pt's Own Medication] 1 each PO DAILY each 07/05/19 Rx Non Formulary [Pt's Own Medication] 1 each PO DAILY each 07/05/19 Rx Verapamil HCl [Calan SR 180mg 180 mg PO BID #60 tablet.er 07/05/19 Rx tablet] guaiFENesin [Robitussin 200mg/10mL 200 mg PO QID udc 07/05/19 Rx Syrup Udc] predniSONE [Deltasone 20mg 20 mg PO DAILY 30 Days #30 tab 07/05/19 Rx tablet] Prescriptions/Medication Reconciliation: New Non Formulary [Pt's Own Medication] 1 each PO DAILY each Non Formulary [Pt's Own Medication] 1 each PO DAILY each Non Formulary [Pt's Own Medication] 1 each INHALATION DAILY each guaiFENesin [Robitussin 200mg/10mL Syrup Udc] 200 mg PO QID udc Bisoprolol Fumarate [Zebeta 5mg tablet] 5 mg PO BID #60 tab Verapamil HCl [Calan SR 180mg tablet] 180 mg PO BID #60 tablet.er predniSONE [Deltasone 20mg tablet] 20 mg PO DAILY 30 Days #30 tab Continued Aspirin [Aspirin 81mg chewable tab] 81 mg PO DAILY Spironolactone [Spironolactone 25mg Tablet] 25 mg PO DAILY Nitroglycerin 0.4 mg SL NEEDED PRN PRN Reason: Angina Magnesium Oxide [Mag-Ox 400mg Tab] 400 mg PO HS Ferrous Gluconate [Ferrous Gluconate 324mg Tab] 324 mg PO DAILY Bifidobacterium Infantis [Align] 4 mg PO DAILY Isosorbide Mononitrate [Imdur 30mg ER tablet] 60 mg PO DAILY Metoclopramide HCl [Reglan 5mg Tablet] 2.5 mg PO AC Levothyroxine Sodium [Synthroid 100mcg (0.1mg) tablet] 100 mcg PO DAILYDM Fluticasone/Umeclidin/Vilanter [Trelegy Ellipta 100-62.5-25] 1 each IH DAILY Omeprazole [Omeprazole 40mg Capsule] 40 mg PO DAILY Potassium Chloride [Micro-K 10mEq cap] 20 meq PO DAILY Polyethylene Glycol 3350 [Gavilax] 17 gm PO DAILY Sucralfate [Carafate 1gm/10mL Susp] 10 ml PO ACHS Albuterol Sulfate [Albuterol HFA Inhaler] 1 puff IH Q4HP PRN PRN Reason: Shortness Of Breath Or Wheezing Sennosides/Docusate Sodium [Stool Softener-Laxative Tablet] 1 each PO DAILY Roflumilast [Daliresp] 250 mcg PO DAILY Losartan Potassium 25 mg PO DAILY Discontinued Furosemide [Lasix 40mg tablet] 40 mg PO DIRECTED dilTIAZem HCl [Diltiazem 240mg 24Hr ER Cap] 240 mg PO DAILY Bisoprolol Fumarate [Zebeta 5mg tablet] 2.5 mg PO BID Loratadine [Allergy] 10 mg PO DAILY - Problem Reconciliation Problems Reviewed?: Yes
== END 2019-07-05 15:23 | disposition hospice, inpatient (51) | DRG 194 ==
LOC: ER 12:13 → 2ND 12:13
PROVIDERS: ADMIT Family Medicine; ATTEND Family Medicine
CPT/HCPCS: 36415; 71010; 71020; 71045; 71046; 74176; 80048; 80053; 81001; 83605; 83690; 83880; 84443; 84484; 85007; 85025; 87040; 87070; 87077; 87205; 93005; 93306; 94640; 94761; 96365; 96375; 97110; 97116; 97162; 97530; 99285; G0378; J0456